=== PATIENT | male | born 1975 | race Caucasian/White ===

== ENCOUNTER 2018-03-13 11:00 | Outpatient (RCR) | payer MEDICARE, SELFPAY ==
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
--- NOTE | 2018-02-24 09:22 | HP.PTREVAL ---
KADEN Polo, It has been my pleasure to treat CHELY ANN over the last 7 visits for R shoulder impingement. Please see the progress note below for an update on the physical therapy plan of care! Subjective: Pt reports pain has returned after working out over the weekend Objective/Function: R shoulder pain 05/11. R shoulder ROM: flex= 150, abd= 160, ER= 45, IR WNL. R shoulder MMT: 4+/5 throughout. Pt is progressing well toward Rx goals Plan Plan: R shoulder strengthening (rot cuff), scap stab ex's, UBE, and HEP Goals Goal 1:: Decrease R shoulder pain x 50% to aid with sleep Goal Time Frame: 2-4 Weeks Goal Progress: Progressing Goal 2:: Increase R shoulder strength to 5/5 throughout to aid with RTS without limitation Goal Time Frame: 2-4 Weeks Goal Progress: Progressing Goal 3:: I with HEP Goal Time Frame: 2-4 Weeks Goal Progress: Progressing Anticipated Interventions Patient/Client Instruction: Educate patient on: Condition, Plan of Care For the Purpose of:: To improve self management Therapeutic Exercise to Include: Strength training, Postural training, Scapular Strength/Stabilization For the Purpose of:: To decrease pain, To improve muscle performance and motor function Cryotherapy (ice pack, ice massage): Yes For the Purpose of:: To decrease pain Please do not hesitate to contact me at [phone] by phone or if you have questions or concerns regarding this new plan of care! Sincerely, Domenico Urrutia, PT, ATC
--- NOTE | 2018-05-08 18:45 | HP.PT.NRP ---
HP - Discharge Summary (1) - Patient Information CHELY ANN was seen in my office for initial evaluation on 02/04/18. The following Plan of Care was established for this patient: Initial Frequency: 2x /Week Initial Duration: 3 Weeks - Anticipated Interventions Patient/Client Instruction: Educate patient on: Condition, Plan of Care For the Purpose of:: To improve self management Therapeutic Exercise to Include: Strength training, Postural training, Scapular Strength/Stabilization For the Purpose of:: To decrease pain, To improve muscle performance and motor function Cryotherapy (ice pack, ice massage): Yes For the Purpose of:: To decrease pain This patient was last seen in our office . Pertinent comments regarding their Physical therapy will appear below: Pt was treated for 9 PT visits for his R shoulder pain through the date of 03/13/18. Pt did not return after that visit, and is therefore discontinued at this time. At this point I will be discontinuing this patient from physical therapy. I would be happy to see this patient again in the future if found appropriate by the physician. Thank you! Domenico Urrutia, PT, ATC
== END 2018-03-13 19:00 | disposition home or self-care (01) ==
LOC: PT 11:00
PROVIDERS: Family Provider Internal Medicine; PCP Internal Medicine; Referring Provider Physician Assistant Surgical; Visit Provider Physician Assistant Surgical
DX: M75.41 Impingement syndrome of right shoulder (principal); M65.811 Other synovitis and tenosynovitis, right shoulder; M75.51 Bursitis of right shoulder
CPT/HCPCS: 97110; 97162; 97530

== ENCOUNTER → 2020-06-10 09:26 | Outpatient (CLI) | payer MEDICARE, SELFPAY ==
[2020-06-10 10:29] LABS: Absolute Lymphocyte Count 0.96 X10^3/uL (0.83-4.51); Absolute Neutrophil Count 2.6 X10^3/uL (2.0-7.7); Basophil# 0.04 X10^3/uL; Eosinophil# 0.06 X10^3/uL; Eosinophils% 1.5 % (0-5); Hematocrit 43.9 % (40-54); Hemoglobin 15.2 g/dL (13.0-16.5); Lymphocyte # 0.96 X10^3/ul (4.0); Lymphocyte % 23.2 % (19-41); Mean Corp Hgb Conc 34.6 g/dL (32-36); Mean Corpuscular Hgb 31.7 pg (27.0-32.0); Mean Corpuscular Volume 91.5 fL (80-94); Mean Platelet Vol. 9.3 fl (6.2-12.0); Monocyte# 0.44 X10^3/uL; Monocyte% 10.7 % (0-10); NRBC Flagged by Analyzer 0 % (0-5); Neutrophil # 2.61 X10^3/uL (2.7-7.7); Neutrophil % 63.1 % (47-70); Platelet Count 208 K/mm3 (150-450); RBC Distribution Width CV 12.4 % (11.6-14.6); RBC Distribution Width SD 41.1 fl (35.1-43.9); White Blood Count 4.1 K/mm3 (4.4-11.0)
[2020-06-10 10:56] LABS: Anion Gap 3 (5-15); BUN 17 mg/dL (7-18); BUN/Creat Ratio 17.1 RATIO (10-20); Calcium,Total 8.8 mg/dL (8.5-10.1); Chloride 106 mmol/L (98-107); Creatinine, Serum 0.99 mg/dL (0.70-1.30); EST Glomerular Filtration Rate 87 mL/min (>60); Est Glom Filt Rate - Afr Amer 106 mL/min (>60); Glucose 99 mg/dL (74-106); Potassium 3.7 mmol/L (3.5-5.1); Sodium Level 137 mmol/L (136-145)
== END ==
PROVIDERS: PCP Internal Medicine; Referring Provider Specialist; Visit Provider Specialist
DX: Z11.59 Encounter for screening for other viral diseases (principal); Z01.818 Encounter for other preprocedural examination
CPT/HCPCS: 36415; 80048; 85025; 87635; C9803; U0002

== ENCOUNTER 2024-10-06 11:30 | Emergency (ER) | payer MEDICARE, SELFPAY ==
[2024-10-06 11:31] VITALS: BP 105/81; PULSE 93; RESP 16; TEMP 37.2; O2SAT 95
--- NOTE | 2024-10-06 11:53 | EDS_ITS ---
HPI History of Present Illness Chief Complaint: Headache Detail of Chief Complaint: Headache Informant: patient Narrative Narrative: Patient presents with headache that started 3 days ago. He denies fall or injury. He complains of nausea. Some mild photophobia. Pain worse with standing and walking and gets better when lying flat. No history of migraines. Patient tells me he had a epidural injection at L4-5 with pain management about 2 weeks ago. He was told he may have a post lumbar puncture type headache. He is not had any fever or recent illness. [facility] Medical History (Updated 10/06/24 @ 13:[address] 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 cord injury Home Medications ?Medication ?Instructions ?Recorded ?Last Taken ?Type baclofen 20 mg tablet 20 mg PO 4X/DAY 10/02/24 Unk nown History gabapentin 800 mg tablet 800 mg PO TID 10/02/24 Unkno wn History levothyroxine 75 mcg tablet See Rx Instructions PO .CO MPLEX 10/02/24 Unknown History tizanidine 4 mg tablet 12 mg PO QHS 10/02/24 Unknow n History tramadol 50 mg tablet 50 mg PO 4X/DAY PRN pain 03/28 Unknown History cztupccxhe-coiqmioesnjhz-yaqnyfbe 1 tab PO Q6H PRN hans n #6 tabs 10/06/24 Unknown Rx 50 mg-325 mg-40 mg tablet Allergy/AdvReac Type Severity Reaction Status Date / Time No Known Allergies Allergy Unverified 10/02/24 10:07 Family History Father Diabetes Grandmother Heart disease Brother Cancer thyroid cancer - twin brother Grandfather Cancer prostate cancer Other Hypertension Surgical History Hx of superior vena cava filter placement History of knee surgery History of pelvic surgery History of cervical spinal surgery Social History (Updated 10/02/24 @ 10:12 by Floridalma Tavera) household members: spouse and children Smoking Status: Never smoker alcohol intake: current alcohol intake frequency: holidays/special occasions only ROS ROS ED Review of Systems ROS Unobtainable: other Constitutional Constitutional ED: Reports lethargy; Denies chills, fever(s), sweats or weight loss Eyes Eyes: Denies blurry vision, change in vision or diplopia ENT ENT ED: Denies rhinorrhea or sore throat Cardiovascular Cardiovascular: Denies chest pain, orthopnea or racing heartbeat Respiratory/Chest Respiratory/Chest: Denies cough, dyspnea, dyspnea on exertion, orthopnea or sputum Gastrointestinal Gastrointestinal: Reports nausea; Denies abdominal pain, diarrhea or vomiting Genitourinary Genitourinary ED: Denies dysuria, hematuria or urinary frequency Musculoskeletal Musculoskeletal: Denies arthralgias, back pain, myalgias or neck pain Integumentary Denies abscess, Abrasions or rash Neurologic Neurologic: Reports headache(s); Denies weakness Psychiatric Psychiatric: Denies anxiety, depression or suicidal thoughts Endocrine Endocrinology: Denies polydipsia, polyphagia or polyuria Hematologic/Lymphatic Hematologic/Lymphatic: Denies easy bleeding, easy bruising or lymphadenopathy Allergic/Immunologic Allergic/Immunologic ED: Denies mouth swelling, tongue swelling or urticaria EXAM Physical Exam Const Vital Signs: 10/06/24 11:31 10/06/24 13:28 Temperature 99.0 F 97.2 F L Temperature Source Oral Pulse Rate 93 69 Respiratory Rate 16 18 Blood Pressure 105/81 H 124/80 H Blood Pressure Mean 89 94 Pulse Ox 95 99 Oxygen Delivery Method Room Air Positive well nourished and well developed General Appearance ED: well developed and NAD HEENT Reports TM's clear and moist mucous membranes normocephalic and atraumatic; Negative for trauma or tenderness Tympanic Membrane ED: Yes TM's clear Eyes PERRL and EOMs intact bilaterally General Eye ED: Negative for pale conjunctiva or scleral icterus Neck no lymphadenopathy, supple and no JVD General: Negative for tenderness Chest Wall inspection of chest normal and palpation of chest normal Chest: Negative for tenderness Resp normal respiratory effort and clear to auscultation bilaterally Effort and Inspection: Negative for respiratory distress or pain with movement Auscultation: Negative for rhonchi, wheezes or diminished lung sounds Cardio regular rate, regular rhythm, S1 normal heart sound, S2 normal heart sound and no murmurs Peripheral Pulses: pulses 2+ throughout GI normal to inspection, nondistended, normoactive bowel sounds, soft to palpation, non-tender, non-distended and no masses Back/Spine no CVA tenderness and no thoracic nor lumbar tenderness Extremity normal to inspection General Extremety ED: Negative for edema General Extremity: Negative for edema Neuro oriented x3, CN's II-XII intact bilaterally, no sensory deficits noted and gait normal Sensorium / Orientation: awake, alert, oriented to person, oriented to place and oriented to time Motor Exam: strength 5/5 throughout and strength abnormal Psych mental status grossly normal Skin no rashes or lesions noted and no wounds MDM MDM MDM Narrative Medical decision making narrative: Patient presents with headache with concern for delayed spinal leak from prior epidural injection 2 weeks ago. Clinically looks well. No fever. No nuchal rigidity on exam. IV line established. He had a CT scan of the brain without contrast that was unremarkable. CBC with differential showed a normal white count 7.3 with hemoglobin 15 and platelet count of 233. Chemistries unremarkable. Patient was medicated with Reglan, Benadryl, and Toradol and had some pain relief with that. At this point I was able to discuss case with patient's tumbling barrel painter that performed the lumbar puncture. He asked that patient come see him tomorrow and he will assess and determine if the blood patch is indicated and performed at that time. He did asked that I give patient Fioricet until tomorrow when he can be seen by them. Lab Data Attestation: I reviewed the patient's lab results. Labs: Laboratory Results - last 24 hr 10/06/24 12:08 WBC 7.3 RBC 4.84 Hgb 15.1 Hct 43.5 MCV 89.9 MCH 31.2 MCHC 34.7 RDW Std Deviation 40.5 RDW Coeff of Marc 12.3 Plt Count 233 MPV 8.3 Immature Gran % (Auto) 1.400 H Neut % (Auto) 63.6 Lymph % (Auto) 24.7 Pepin % (Auto) 9.5 Eos % (Auto) 0.3 Baso % (Auto) 0.5 Absolute Neuts (auto) 4.7 Absolute Lymphs (auto) 1.81 Nucleated RBC % 0 Sodium 138 Potassium 3.5 Chloride 103 Carbon Dioxide 24.2 Anion Gap 11 BUN 14 Creatinine 1.01 Estim Creat Clear Calc 105.12 Est GFR (MDRD) Non-Af 92 BUN/Creatinine Ratio 13.8 Glucose 94 Calcium 9.0 Radiography Diagnostic Testing: Clinical Impression(s) from Imaging Studies Brain CT 10/06/24 12:34 IMPRESSION: NORMAL NONCONTRAST HEAD CT. Reading Location: [facility] Discharge Plan Triage Chief Complaint: Headache ED Provider: Jean Carlos Wilburn Dx/Rx/DC Orders Clinical Impression: Headache Instructions: ED Headache Unspecified Prescriptions: New xouovwueaa-gcdfykjcwpawf-gdxp 50-325-40 mg tablet 1 tab PO Q6H PRN (Reason: pain) Qty: 6 0RF No Action levothyroxine 75 mcg tablet See Rx Instructions PO .COMPLEX Rx Instructions: orally; 1 tab daily, except sundays take 2 tabs baclofen 20 mg tablet 20 mg PO 4X/DAY gabapentin 800 mg tablet 800 mg PO TID tizanidine 4 mg tablet 12 mg PO QHS tramadol 50 mg tablet 50 mg PO 4X/DAY PRN (Reason: pain) Primary Care Provider: Radha Diaz Referrals: Radha Diaz MD [Primary Care Provider] - Activity Restrictions/Additional Instructions: See the pain management doctor tomorrow Print Language: Telugu Disposition Disposition: Home, Self Care Discharge Date/Time: 10/06/24 13:29
[2024-10-06 12:16] LABS: Hematocrit 43.5 % (40-54); Hemoglobin 15.1 g/dL (13.0-16.5); Immature Granulocytes Count 0.100 X10^3/uL (0.0-0.0); Mean Corp Hgb Conc 34.7 g/dL (32-36); Mean Corpuscular Volume 89.9 fL (80-94); Mean Platelet Vol. 8.3 fl (6.2-12.0); NRBC Flagged by Analyzer 0 % (0-5); Platelet Count 233 K/mm3 (150-450); RBC Distribution Width CV 12.3 % (11.6-14.6); RBC Distribution Width SD 40.5 fl (35.1-43.9); Red Blood Count 4.84 M/mm3 (4.6-6.2); White Blood Count 7.3 K/mm3 (4.4-11.0)
[2024-10-06] MEDS: Ketorolac 30 MG/ML Syringe IV (12:17)
[2024-10-06] MEDS: DiphenhydrAMINE 50 MG/ML Syringe 25 MG IV (12:17)
[2024-10-06] MEDS: 0.9% Normal Saline (1000mL) 1,000 ML 1000 ML IV (12:18)
[2024-10-06 12:21] VITALS: BMI 23.8
--- NOTE | 2024-10-06 12:34 | CT_ITS ---
PROCEDURE: BRAIN/HEAD WITHOUT CONTRAST 10/06/2024 REASON FOR EXAM: HEADACHE Dizziness. TECHNIQUE: BRAIN/HEAD WITHOUT CONTRAST Coronal and Sagittal reconstruction series were provided. One or more dose reduction techniques were used (e.g., Automated exposure control, adjustment of the mA and/or kV according to patient size, use of iterative reconstruction technique. RADIATION DOSE SUMMARY: CTDlvol: 44.99 mGy DLP: 846.73 mGycm COMPARISON: None FINDINGS: Brain: Normal CSF Spaces: Normal Sinuses/Mastoids: Clear at visualized levels Bones: Unremarkable CT/Brain/Head without Contrast IMPRESSION: NORMAL NONCONTRAST HEAD CT. Reading Location: [facility]
[2024-10-06 12:53] LABS: Anion Gap 11 (5-15); BUN 14 mg/dL (4-19); BUN/Creat Ratio 13.8 RATIO (10-20); Calcium,Total 9.0 mg/dL (7.6-11.0); Carbon Dioxide 24.2 mmol/L (21.0-32.0); Chloride 103 mmol/L (98-108); Estimated Creatinine Clearance 105.12 ml/min (50-250); Glucose 94 mg/dL (70-99); Potassium 3.5 mmol/L (3.3-5.1)
[2024-10-06 13:28] VITALS: BP 124/80; PULSE 69; RESP 18; TEMP 36.2; O2SAT 99
--- OUTSIDE RECORDS SUMMARY | 2024-10-06 18:59 | XMS RPT_ITS | CCD ---
Author Organization [facility] Care Team Providers Care Public Health Doctor Name Role Phone PETAR INNA Lida Unavailable Unavailable TIFFANIE ANTHONY (BRAKE MECHANIC) Unavailable Unavailable Robin Enamorado MD Primary Care Provider Robin Enamorado MD Primary Care Provider Robin Enamorado MD Primary Care Provider Robin Enamorado MD Primary Care Provider ROBIN ENAMORADO Referring Unavailable KELSEA, ROBIN D Primary Care Unavailable Corporate, Doctor Attending Unavailable Gallito Moreno III Attending Unavailab le Corporate, Doctor Attending Unavailable Corporate, Doctor Attending Unavailable No Referring Doc, No Ref Doc Referring Lexi vailable Corporate, Doctor Attending Unavailable Anthony IT SECURITY CONSULTANT.BRAKE MECHANIC, Tiffanie Unavailable Citlali IT SECURITY CONSULTANT.METAL FURNACE OPERATOR, Anneliese Unavailable Citlali IT SECURITY CONSULTANT.METAL FURNACE OPERATOR, Anneliese Unavailable Citlali IT SECURITY CONSULTANT.METAL FURNACE OPERATOR, Anneliese Unavailable CIRILO GARCIA Attending Unavailable CHELY VERMA Referring Unavailable TALAMPAS, ROBIN D Primary Care Unavailable Anthony IT SECURITY CONSULTANT.BRAKE MECHANIC, Tiffanie Unavailable CHELY VERMA Attending Unavailable TALAMPAS, ROBIN D Primary Care Unavailable CHELY VERMA Attending Unavailable TALAMPAS, ROBIN D Primary Care Unavailable CHRIS CLEVELAND Attending Unavailable TALAMPAS, ROBIN D Primary Care Unavailable CHELY VERMA Attending Unavailable TALAMPAS, ROBIN D Primary Care Unavailable CHRIS CLEVELAND Admitting Unavailable CHRIS CLEVELAND Attending Unavailable TALAMPAS, ROBIN D Primary Care Unavailable CHELY VERMA Attending Unavailable SELF Referring Unavailable TALAMPAS, ROBIN D Primary Care Unavailable FRANDY YIP Admitting Unavailable FRANDY YIP Attending Unavailable TALAMPAS, ROBIN D Primary Care Unavailable CHELY VERMA Referring Unavailable TALAMPAS, ROBIN D Primary Care Unavailable AINSLEY ALFONSO Attending Unavailable SELF Referring Unavailable TALAMPAS, ROBIN D Primary Care Unavailable AINSLEY ALFONSO Referring Unavailable TALAMPAS, ROBIN D Primary Care Unavailable AINSLEY ALFONSO Referring Unavailable TALAMPAS, ROBIN D Primary Care Unavailable PABLO URIAS Attending Unavailable TALAMPAS, ROBIN D Primary Care Unavailable TALAMPAS, ROBIN D Referring Unavailable TALAMPAS, ROBIN D Primary Care Unavailable TALAMPAS, ROBIN D Attending Unavailable TALAMPAS, ROBIN D Primary Care Unavailable CHELY VERMA Referring Unavailable TALAMPAS, ROBIN D Referring Unavailable TALAMPAS, ROBIN D Primary Care Unavailable TALAMPAS, ROBIN D Attending Unavailable TALAMPAS, ROBIN D Primary Care Unavailable Geriampas , Dr. Robin Zavala Primary Care Provider Kelsea WHALEN, Dr. Robin Zavala Referring Provider Lele WHALEN, Dr. Caro Attending Provider Juanis WHALEN, Dr. Campos Attending Provider [phone] Andres Olivarez Attending Unavailable Talampas, Robin Sally Primary Care Unavailable Talampas, Robin D Referring Unavailable Talampas, Robin D Primary Care Unavailable Gordo Royal Attending Unavailable Dr. Jean Carlos Wilburn DO Emergency Provider [phone] Medications Current Medications Medication Drug Class(es) Dates Sig (Normalized) Sig (Original) acetaminophen 325 mg / butalbital 50 mg / caffeine 40 mg oral tablet (1 source) Barbiturate, Central Nervous System Stimulant, Methylxanthine Start: 10-06-2024 Butalbital-Aceta minophen-Caff 50-325-40 mg tablet Active 1 {tbl} PO EVERY 6 HOURS as needed for pain 6 0 October 06, 2024 12:00am baclofen 20 mg oral tablet (20 sources) gamma-Aminobutyric Acid-ergic Agonist Start: 10-02-2024 take 1 tablet by mouth four times daily Baclofen 20 mg tablet Active 20 mg PO 4 TIMES DAILY October 02, 2024 12:00am Start: 02-17-2020 End: 09-29-2024 take 1 tablet by mouth four times daily baclofen 20 mg tablet Indications: Brown-Sequard syndrome (HCC) Take 1 tablet by mouth four times daily. 120 tablet 3 06/01/2024 09/29/2024 Active Comment on above: Take 1 tablet by ruma th four times daily. bisacodyl 10 mg rectal suppository (2 sources) Stimulant Laxative Start: 04-24-2022 End: 05-24-2022 bisacodyl (THE MAGIC BULLET) 10 mg supp 1 Suppository by RECTAL route once daily as needed for constipation. 30 Suppository 1 04/24/2022 05/24/2022 Active Comment on above: 1 Suppository by REC GERI route once daily as needed for constipation. calcium carbonate 500 mg chewable tablet (20 sources) Start: 03-09-2019 End: 04-26-2022 calcium carbonate (TUMS) 500 mg chew Take by mouth. 03/09/2019 Active Comment on above: Take by mouth. Take 1 tablet by ruma th once daily. CPAP (20 sources) Start: 04-08-2024 CPAP Increase pressures to Autopap 8-20 cm H2O, Please take off ramp, and if able turn up humidity. Need for new supplies: Heat Humidity, suitable mask, Lifetime supplies, opt Chinstrap, G47.33. 1 Each 04/08/2024 Suspended Start: 04-08-2024 CPAP Increase pressures to Autopap 8-20 cm H2O, Please take off ramp, and if able turn up humidity. Need for new supplies: Heat Humidity, suitable mask, Lifetime supplies, opt Chinstrap, G47.33. 1 Each 04/08/2024 Active Start: 06-05-2018 End: 04-08-2024 CPAP Increase pressures to A utopap 8-20 cm H2O, Please take off ramp, and if able turn up humidity. Need for new supplies: Heat Humidity, suitable mask, Lifetime supplies, opt Chinstrap, G47.33. 1 Device 11 06/05/2018 04/08/2024 Discontinued Start: 06-05-2018 CPAP Increase pressures to Autopap 8-20 cm H2O, Please take off ramp, and if able turn up humidity. Need for new supplies: Heat Humidity, suitable mask, Lifetime supplies, opt Chinstrap, G47.33. 1 Device 11 06/05/2018 Active Comment on above: Increase pressures t o Autopap 8-20 cm H2O, Please take off ramp, and if able turn up humidity. Need for new supplies: Heat Humidity, suitable mask, Lifetime supplies, opt Nerysultana G47.33. diazePAM 10 mg oral tablet (1 source) Benzodiazepine Start: 07-31-19 End: 08-01-19 diazePAM (VALIUM) 10 mg tablet Indications: Spinal stenosis of lumbar region, unspecified whether neurogenic claudication present , Degeneration of intervertebral disc of lumbar region with lower extremity pain Take 1 tablet by mouth as directed for 1 day. One tab 2 hours prior to the procedure 1 tablet 07/30/2024 07/31/2024 Active gabapentin 800 mg oral tablet (20 sources) Anti-epileptic Agent Start: 06-26-19 End: 10-06-19 take 1 tablet by mouth three times daily Gabapentin 800 mg tablet Active 800 mg PO THREE TIMES A DAY October 02, 2024 12:00am Start: 10-27-2021 End: 06-22-2022 take 1 tablet by mouth three times daily gabapentin (NEURONTIN) 800 mg tablet Indications: Brown-Sequard syndrome (HCC) Take 1 tablet by mouth three times daily for 90 days. 270 tablet 0 02/16/2022 06/22/2022 Discontinued take 800 mg by mouth three times daily GABAPENTIN ORAL Take 800 mg by mouth three times daily. 0 Active Comment on above: Take 800 mg by mouth three times daily. Take 1 tablet by ruma three times daily for 90 days. Take 1 tablet by ruma three times daily for 180 days. Take 1 tablet by ruma th three times a day for 180 days. ibuprofen 800 mg oral tablet (20 sources) Nonsteroidal Anti-inflammatory Drug Start: 03-09-2019 ibuprofen (MOTRIN) 800 mg tablet Take by mouth. 03/09/2019 Active Comment on above: Take by mouth. levothyroxine sodium 0.075 mg oral tablet (20 sources) l-Thyroxine Start: 10-02-2024 Levothyroxine 75 mcg tablet Active 0 PO .COMPLEX October 02, 2024 12:00am orally; 1 tab daily, except sundays take 2 tabs Start: 10-02-2024 Levothyroxine 75 mcg tablet Active ug PO October 02, 2024 12:00am Start: 07-27-2022 End: 04-08-2024 levothyroxine (SYNTHROID) 75 mcg tablet Indications: Acquired hypothyroidism Take 1 tablet by mouth once daily. except on Sundays, take 2 pills 103 tablet 3 04/08/2024 Active Start: 06-21-2020 End: 07-28-2021 levothyroxine (SYNTHROID) 75 mcg tablet Indications: Acquired hypothyroidism Take 1 tablet by mouth once daily. except on Sundays, take 2 pills 103 tablet 3 07/28/2021 Active Comment on above: Take 1 tablet by ruma th once daily. except on Sundays, take 2 pills sildenafil 100 mg oral tablet (20 sources) Phosphodiesterase 5 Inhibitor Start: 04-24-2022 sildenafil (VIAGRA) 100 mg tablet Take 1 tablet by mouth as needed. 10 tablet 3 04/24/2022 Active Start: 08-01-2021 End: 04-24-2022 sildenafil (VIAGRA) 50 mg ta blet Take 1 tablet by mouth as needed. 30-60 minutes before sexual intercourse. 10 tablet 2 08/01/2021 04/24/2022 Discontinued Start: 04-29-2020 End: 07-28-2021 sildenafil (VIAGRA) 50 mg ta blet Take 1 tablet by mouth as needed. 30-60 minutes before sexual intercourse. 10 tablet 2 04/29/2020 07/28/2021 Discontinued Comment on above: Take 1 tablet by ruma th as needed. 30-60 minutes before sexual intercourse. Take 1 tablet by ruma th as needed. 12 hr timolol 5 mg/ml ophthalmic solution (20 sources) beta-Adrenergic Vitaliy Start: 03-29-2022 timolol maleate (TIMOPTIC) 0.5 % ophthalmic solution Use 1 Drop in the left eye twice daily. 10 mL 03/29/2022 Active Start: 03-29-2022 timolol maleat e (TIMOPTIC) 0.5 % ophthalmic solution Use 1 Drop in the left eye twice daily. 10 mL 0 03/29/2022 Active Comment on above: Use 1 Drop in the le ft eye twice daily. tiZANidine 4 mg oral tablet (20 sources) Central alpha-2 Adrenergic Agonist Start: 10-02-2024 take 3 tablets by mouth at bedtime Tizanidine 4 mg tablet Active 12 mg PO AT BEDTIME October 02, 2024 12:00am Start: 06-25-2022 End: 10-05-2024 take 1 tablet by mouth three times daily as needed Tizanidine 4 mg tablet Active 4 mg PO THREE TIMES A DAY as needed October 02, 2024 12:00am Start: 02-16-2022 End: 06-22-2022 take 1 tablet by mouth every eight hours as needed tiZANidine (ZANAFLEX) 4 mg tablet Take 1 tablet by mouth every 8 hours as needed. Three times daily as needed 270 tablet 0 02/16/2022 06/22/2022 Discontinued Start: 06-04-2017 End: 02-16-2022 tiZANidine (ZANAFLEX) 4 mg t ablet Takes 3 at bedtime plus may take with Baclofen as needed 0 06/04/2017 02/16/2022 Discontinued Comment on above: Takes 3 at bedtime p king may take with Baclofen as needed Take 1 tablet by ruma th every 8 hours as needed. Three times daily as needed Take 1 tablet by ruma th three times daily as needed. Three times daily as needed Take 1 tablet by ruma th three times a day as needed. Three times daily as needed traMADol hydrochloride 50 mg oral tablet (20 sources) Opioid Agonist Start: 10-02-2024 take 1 tablet by mouth four times daily as needed for pain Tramadol 50 mg tablet Active 50 mg PO 4 TIMES DAILY as needed for pain October 02, 2024 12:00am Start: 07-30-2024 End: 08-29-2024 take 1 tablet by mouth four times daily as needed for pain traMADol (ULTRAM) 50 mg tablet Indications: Brown-Sequard syndrome (HCC) Take 1 tablet by mouth four times a day as needed for pain for up to 30 days. 120 tablet 07/30/2024 Active Start: 02-18-2023 End: 07-31-2024 take 1 tablet by mouth every eight hours as needed for pain traMADol (ULTRAM) 50 mg tablet Indications: Brown-Sequard syndrome (HCC) Take 1 tablet by mouth every 8 hours as needed for pain for up to 30 days. Patient should start on July 01, 2024. 90 tablet 07/01/2024 07/30/2024 Discontinued Start: 08-30-2022 End: 12-22-2022 take 1 tablet by mouth every eight hours as needed for pain traMADol (ULTRAM) 50 mg tablet Indications: Brown-Sequard syndrome (HCC) Take 1 tablet by mouth every 8 hours as needed for pain for up to 30 days. 90 tablet 0 11/22/2022 12/22/2022 Active Start: 06-07-2022 End: 07-07-2022 take 1 tablet by mouth every eight hours as needed traMADol (ULTRAM) 50 mg tablet Indications: Brown-Sequard syndrome (HCC) Take 1 tablet by mouth every 8 hours as needed for up to 30 days. 90 tablet 0 06/07/2022 07/07/2022 Active Start: 11-23-2021 End: 04-14-2022 take 1 tablet by mouth every eight hours as needed traMADol (ULTRAM) 50 mg tablet Indications: Brown-Sequard syndrome (HCC) Take 1 tablet by mouth every 8 hours as needed for up to 30 days. 90 tablet 0 03/15/2022 Active Start: 08-17-2021 End: 11-11-2021 take 1 tablet by mouth every eight hours as needed traMADol (ULTRAM) 50 mg tablet Indications: Brown-Sequard syndrome (HCC) Take 1 tablet by mouth every 8 hours as needed for up to 30 days. 90 tablet 0 10/12/2021 11/11/2021 Active Comment on above: Take 50 mg by mouth every 8 hours as needed. Take 1 tablet by ruma th every 8 hours as needed for up to 30 days. Take 1 tablet by ruma th every 8 hours as needed for pain for up to 30 days. Completed/Discontinued Medications Medication Drug Class(es) Dates Sig (Normalized) Sig (Original) bacitracin 0.5 unt/mg ophthalmic ointment (5 sources) Start: 3 bacitracin ophthalmic ophthalmic ointment Use 1 application in the left eye every 4 hours. 3.5 g 0 03/29/2022 Active Comment on above: Use 1 application in the left eye every 4 hours. bacitracin 0.5 unt/mg / polymyxin b 10 unt/mg ophthalmic ointment (5 sources) Polymyxin-class Antibacterial Start: 3 bacitracin-polymyxin b (POLYSPORIN) ophthalmic ointment APPLY IN LEFT EYE EVERY 4 HOURS 0 03/30/2022 Active Comment on above: APPLY IN LEFT EYE EV JORI 4 HOURS dexamethasone 1 mg/ml / tobramycin 3 mg/ml ophthalmic suspension (5 sources) Aminoglycoside Antibacterial, Corticosteroid Start: 3 tobramycin-dexAMETHas one (TOBRADEX) 0.3-0.1 % ophthalmic suspension Use 1 application in the left eye three times daily for 7 days. 0 03/29/2022 Active Comment on above: Use 1 application in the left eye three times daily for 7 days. doxycycline hyclate 100 mg oral tablet (1 source) Tetracycline-class Drug Start: 3 End: 4 take 1 tablet by mouth twice daily doxycycline (VIBRA-TABS) 100 mg tablet Take 1 tablet by mouth two times a day for 7 days. 14 tablet 02/28/2023 03/07/2023 ketorolac tromethamine 5 mg/ml ophthalmic solution (5 sources) Nonsteroidal Anti-inflammatory Drug, Cyclooxygenase Inhibitor Start: 3 take 1 drop(s) into the eye(s) four times daily as needed keTORolac (ACULAR) 0.5 % ophthalmic solution USE 1 (ONE) DROP INTO THE AFFECTED EYES FOUR TIMES DAILY NEEDED 0 03/30/2022 Active Comment on above: USE 1 (ONE) DROP INT O THE AFFECTED EYES FOUR TIMES DAILY NEEDED meloxicam 15 mg oral tablet (5 sources) Nonsteroidal Anti-inflammatory Drug Start: 0 End: 3 meloxicam (MOBIC) 15 mg tablet Take by mouth. 0 03/04/1969 03/13/2022 Discontinued Comment on above: Take by mouth. methylPREDNISolone (6 sources) Corticosteroid Start: 5 End: 5 methylPREDNISolone (MEDROL DOSE-PACK) 4 mg Dose-Pack Take as instructed per package. 21 tablet 07/08/2024 07/14/2024 Start: 07-08-2024 End: 07-14-2024 methylPREDNISolone (MEDROL D OSE-PACK) 4 mg Dose-Pack Take as instructed per package. 21 tablet 07/08/2024 07/14/2024 Suspended Start: 07-08-2024 End: 07-14-2024 methylPREDNISolone (MEDROL D OSE-PACK) 4 mg Dose-Pack Take as instructed per package. 21 tablet 07/08/2024 07/14/2024 Active Start: 07-08-2023 End: 07-14-2023 methylPREDNISolone (MEDROL D OSE-PACK) 4 mg Dose-Pack Indications: Degeneration of lumbar intervertebral disc Take as instructed per package. 21 tablet 0 07/08/2023 07/14/2023 Active Start: 03-15-2023 End: 04-04-2023 take 1 tablet by mouth once methylPREDNISolone (MEDROL DOSE- PACK) 4 mg Dose-Pack Take 1 tablet by mouth as directed. As Instructed per package 21 tablet 0 03/15/2023 04/04/2023 Discontinued (Course of therapy completed) Start: 07-26-2021 End: 10-12-2021 methylPREDNISolone (MEDROL D OSE-PACK) 4 mg Dose-Pack Take as directed per package instructions 0 07/26/2021 10/12/2021 Discontinued Comment on above: Take as directed per package instructions Take 1 tablet by ruma th as directed. As Instructed per package nadolol 20 mg oral tablet (20 sources) beta-Adrenergic Vitaliy Start: 01-20-20 21 take 1 tablet by mouth once daily as needed for headache nadolol (CORGARD) 20 mg tablet Indications: Intermittent palpitations Take 1 tablet by mouth once daily. for headache; taking prn 90 tablet 3 01/19/2021 Active Comment on above: Take 1 tablet by ruma th once daily. for headache; taking prn omeprazole 20 mg delayed release oral capsule (20 sources) Proton Pump Inhibitor Start: 01-20-20 21 take 1 capsule by mouth once daily as needed omeprazole (PRILOSEC) 20 mg capsule Indications: Gastroesophageal reflux disease without esophagitis Take 1 capsule by mouth once daily. as needed 90 capsule 3 01/19/2021 Active Start: 03-09-2019 End: 10-12-2021 Omeprazole Magnesium 20 mg t ablet Take by mouth. 0 03/09/2019 10/12/2021 Discontinued Comment on above: Take 1 capsule by mo uth once daily. as needed Take by mouth. polyethylene glycol 3350 21950 mg powder for oral solution (20 sources) Osmotic Laxative Start: 12-10-2017 polyethylene glycol 3350 (MIRALAX) 17 gram/dose powder Take 17 g by mouth once daily. 1 Bottle 11 12/10/2017 Active Comment on above: Take 17 g by mouth o nce daily. prednisoLONE acetate 10 mg/ml ophthalmic suspension (5 sources) Corticosteroid Start: 04-06-2022 prednisoLONE acetate (PRED FORTE, ECONOPRED PLUS) 1 % ophthalmic suspension INSTILL 1 (ONE) DROP IN THE LEFT EYE FOUR TIMES DAILY. 0 04/06/2022 Active Comment on above: INSTILL 1 (ONE) DROP IN THE LEFT EYE FOUR TIMES DAILY. tamsulosin hydrochloride 0.4 mg oral capsule (20 sources) alpha-Adrenergic Vitaliy Start: 03-18-2019 End: 03-13-2022 tamsulosin (FLOMAX) 0.4 mg Take by mouth. 0 03/18/2019 03/13/2022 Discontinued Start: 01-15-2019 End: 09-21-2024 tamsulosin (FLOMAX) 0.4 mg 1 capsule. 01/15/2019 09/21/2024 Discontinued (Course of therapy completed) Comment on above: Take by mouth. 1 capsule. Problems Active Problems Problem Classification Problem Date Documented Da te Episodic/Chronic Cardiac dysrhythmias (1 source) Premature atrial contraction; Translations: [Atrial premature depolarization] 04-08-2024 Chronic Esophageal disorders (2 sources) Gastroesophageal reflux disease without esophagitis; Translations: [Gastro-esophageal reflux disease without esophagitis] Chronic Genitourinary symptoms and ill-defined conditions (1 source) Dysuria; Translations: [Dysuria] 09-02-2024 Episodic Headache; including migraine (20 sources) Headache disorder; Translations: [Other complicated headache syndrome] Onset: 9 02-05-2019 Episodic Immunizations and screening for infectious disease (4 sources) Viral screening status; Translations: [Encounter for screening for other viral diseases] Episodic Open wounds of head; neck; and trunk (1 source) Facial laceration ; Translations: [Laceration without foreign body of other part of head, initial encounter] Episodic Other acquired deformities (4 sources) Retrolisthesis; Translations: [Spondylolisthesis, site unspecified] 10-02-2024 Episodic Other connective tissue disease (20 sources) Spasticity; Translations: [Cramp and spasm] 02-27-2021 Episodic Other connective tissue disease (20 sources) Neuropathic pain; Translations: [Neuralgia and neuritis, unspecified] 02-27-2021 Episodic Other connective tissue disease (1 source) Other symptoms and signs involving the musculoskeletal system; Translations: [Other musculoskeletal symptoms referable to limbs] 09-14-2024 Episodic Other diseases of bladder and urethra (3 sources) Neurogenic bladder; Translations: [Neuromuscular dysfunction of bladder, unspecified] Chronic Other diseases of bladder and urethra (1 source) Neuromuscular dysfunction of bladder, unspecified; Translations: [Neurogenic bladder] Onset: 5 Chronic Other gastrointestinal disorders (1 source) Neurogenic bowel; Translations: [Neurogenic bowel, not elsewhere classified] Chronic Other hereditary and degenerative nervous system conditions (3 sources) Autonomic dysreflexia; 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] 10-02-2024 Chronic Other lower respiratory disease (1 source) Cough; Translations: [Acute cough] 02-28-2023 Episodic Other male genital disorders (20 sources) Secondary erectile dysfunction; Translations: [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] Onset: 0 09-23-2021 Chronic Other male genital disorders (2 sources) Male erectile dysfunction, unspecified; Translations: [Impotence of organic origin] Onset: 5 09-21-2024 Chronic Other male genital disorders (1 source) Defective ejaculation; Translations: [Other ejaculatory dysfunction] Episodic Other nervous system disorders (20 sources) Lesion of left ulnar nerve; Translations: [Lesion of ulnar nerve, left upper limb] Onset: 0 Chronic Other nervous system disorders (20 sources) Chronic pain syndrome; Translations: [Chronic pain syndrome] Onset: 3 02-18-2023 Chronic Other nervous system disorders (1 source) Chronic pain syndrome; Translations: [Chronic pain syndrome] Onset: 3 Chronic Other nervous system disorders (3 sources) Other chronic pain; Translations: [Chronic pain of left knee] Onset: 4 Chronic Other nervous system disorders (1 source) Lesion of ulnar nerve, left upper limb; Translations: [Lesion of left ulnar nerve] Onset: 2 Chronic Other nervous system disorders (1 source) Abnormal gait; Translations: [Unspecified abnormalities of gait and mobility] Episodic Other screening for suspected conditions (not mental disorders or infectious disease) (11 sources) Patient encounter status; Translations: [Encounter for screening for lipoid disorders] Onset: 5 Episodic Other upper respiratory infections (1 source) Acute upper respiratory infection; Translations: [Acute upper respiratory infection, unspecified] 02-28-2023 Episodic Paralysis (20 sources) Tetraplegia; Translations: [Quadriplegia, unspecified] Onset: 8 02-05-2019 Chronic Residual codes; unclassified (20 sources) Obstructive sleep apnea syndrome; Translations: [Obstructive sleep apnea (adult) (pediatric)] Onset: 5 12-04-2017 Chronic Residual codes; unclassified (1 source) At risk of diabetes mellitus; Translations: [Other specified personal risk factors, not elsewhere classified] Episodic Residual codes; unclassified (1 source) At risk of osteoporosis; Translations: [Other specified personal risk factors, not elsewhere classified] Episodic Spondylosis; intervertebral disc disorders; other back problems (20 sources) Lumbar spondylosis; Translations: [Spondylosis without myelopathy or radiculopathy, lumbar region] Onset: 3 02-18-2023 Chronic Spondylosis; intervertebral disc disorders; other back problems (20 sources) Fusion of spine, cervical region; Translations: [Cervical spine ankylosis] Onset: 5 10-01-2014 Episodic Substance-related disorders (20 sources) Opioid dependence; Translations: [Opioid dependence, uncomplicated] Onset: 3 10-11-2022 Chronic Thyroid disorders (20 sources) Hypothyroidism; Translations: [Hypothyroidism, unspecified] Onset: 4 08-05-2013 Chronic Unclassified (1 source) Obstructive sleep apnea (adult) (pediatric); Translations: [Obstructive sleep apnea (adult) (pediatric)] Onset: 5 Chronic Unclassified (1 source) Weakness of right lower extremity 09-14-2024 Unclassified (1 source) Degeneration of intervertebral disc of lumbar region with lower extremity pain; Translations: [Degeneration of intervertebral disc of lumbar region with lower extremity pain] Onset: 5 Unclassified (1 source) Degeneration of intervertebral disc of lumbar region with discogenic back pain and lower extremity pain; Translations: [Degeneration of intervertebral disc of lumbar region with discogenic back pain and lower extremity pain] Onset: 4 Past or Other Problems Problem Classification Problem Date Documented Da te Episodic/Chronic Acquired foot deformities (20 sources) Left foot drop; Translations: [Foot drop, left foot] Onset: 04-08-2007 04-08-2012 Episodic Cardiac dysrhythmias (20 sources) Intermittent palpitations; Translations: [Palpitations] Onset: 10-28-2023 Episodic Other aftercare (20 sources) Long-term current use of drug therapy; Translations: [Other group home (current) drug therapy] Onset: 09-03-2019 Episodic Other aftercare (2 sources) Other group home (current) drug therapy; Translations: [Other group home (current) drug therapy] Onset: 09-23-2021 Episodic Other connective tissue disease (1 source) Cramp and spasm; Translations: [Cramp and spasm] Onset: 04-08-2012 Episodic Other connective tissue disease (20 sources) Myofascial pain syndrome; Translations: [Myalgia, other site] Onset: 02-18-2023 02-18-2023 Episodic Other connective tissue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 Cleveland MD Work Phone: [facility] 07-14-2024 10:23-0400 Body temperature 97.2 [degF] Chris Cleveland MD Work Phone: [facility] 07-14-2024 10:23-0400 SaO2% (BldA) [Mass fraction] 96 % Chris Cleveland MD Work Phone: [facility] 04-08-2024 07:59-0500 Diastolic blood pressure 60 mm[Hg] Robin Enamorado MD Work Phone: [facility] 04-08-2024 07:59-0500 Heart rate 83 /min Robin Enamorado MD Work Phone: [facility] 04-08-2024 07:59-0500 SaO2% (BldA) [Mass fraction] 99 % Robin Enamorado MD Work Phone: [facility] 04-08-2024 07:59-0500 Systolic blood pressure 100 mm[Hg] Robin Enamorado MD Work Phone: [facility] 04-01-2024 09:24-0500 Body height 188 cm Chris Cleveland MD Work Phone: [facility] 04-01-2024 09:24-0500 Body mass index (BMI) [Ratio] 23.75 kg/m2 Chris Cleveland MD Work Phone: [facility] 04-01-2024 09:24-0500 Body weight 83.92 kg Chris Cleveland MD Work Phone: [facility] 04-01-2024 09:24-0500 Diastolic blood pressure 71 mm[Hg] Chris Cleveland MD Work Phone: [facility] 04-01-2024 09:24-0500 Heart rate 73 /min Chris Cleveland MD Work Phone: [facility] 04-01-2024 09:24-0500 Respiratory rate 16 /min Chris Cleveland MD Work Phone: [facility] 04-01-2024 09:24-0500 SaO2% (BldA) [Mass fraction] 98 % Chris Cleveland MD Work Phone: [facility] 04-01-2024 09:24-0500 Systolic blood pressure 110 mm[Hg] Chris Cleveland MD Work Phone: [facility] 01-09-2024 09:29-0500 Body mass index (BMI) [Ratio] 23.75 kg/m2 Chely ALFONSO-C Work Phone: [facility] 01-09-2024 09:29-0500 Body weight 83.92 kg Chely Verma PA-C Work Phone: [facility] 01-09-2024 09:29-0500 Diastolic blood pressure 81 mm[Hg] Chely ALFONSO-C Work Phone: [facility] 01-09-2024 09:29-0500 Heart rate 70 /min Chely ALFONSO-C Work Phone: [facility] 01-09-2024 09:29-0500 Respiratory rate 16 /min Chely ALFONSO-C Work Phone: [facility] 01-09-2024 09:29-0500 SaO2% (BldA) [Mass fraction] 97 % Chely ALFONSO-C Work Phone: [facility] 01-09-2024 09:29-0500 Systolic blood pressure 119 mm[Hg] Chely ALFONSO-C Work Phone: [facility] 10-17-2023 10:16-0400 Diastolic blood pressure 83 mm[Hg] Chris Cleveland MD Work Phone: [facility] 10-17-2023 10:16-0400 Heart rate 65 /min Chris Cleveland MD Work Phone: [facility] 10-17-2023 10:16-0400 Respiratory rate 18 /min Chris Cleveland MD Work Phone: [facility] 10-17-2023 10:16-0400 Systolic blood pressure 133 mm[Hg] Chris Cleveland MD Work Phone: [facility] 10-17-2023 09:51-0400 Body temperature 97.39 [degF] Chris Cleveland MD Work Phone: [facility] 10-03-2023 08:49-0400 Body height 188 cm Chely ALFONSO-C Work Phone: [facility] 10-03-2023 08:49-0400 Body mass index (BMI) [Ratio] 23.75 kg/m2 Chely ALFONSO-C Work Phone: [facility] 10-03-2023 08:49-0400 Body weight 83.92 kg Chely Verma PA-C Work Phone: [facility] 10-03-2023 08:49-0400 Diastolic blood pressure 74 mm[Hg] Chely ALFONSO-C Work Phone: [facility] 10-03-2023 08:49-0400 Heart rate 82 /min Chely ALFONSO-C Work Phone: [facility] 10-03-2023 08:49-0400 Respiratory rate 18 /min Chely ALFONSO-C Work Phone: [facility] 10-03-2023 08:49-0400 SaO2% (BldA) [Mass fraction] 97 % Chely ALFONSO-C Work Phone: [facility] 10-03-2023 08:49-0400 Systolic blood pressure 116 mm[Hg] Chely ALFONSO-C Work Phone: [facility] 10-02-2023 08:03-0400 Diastolic blood pressure 72 mm[Hg] Robin Enamorado MD Work Phone: [facility] 10-02-2023 08:03-0400 Heart rate 94 /min Robin Enamorado MD Work Phone: [facility] 10-02-2023 08:03-0400 Respiratory rate 16 /min Robin Enamorado MD Work Phone: [facility] 10-02-2023 08:03-0400 SaO2% (BldA) [Mass fraction] 95 % Robin Enamorado MD Work Phone: [facility] 10-02-2023 08:03-0400 Systolic blood pressure 110 mm[Hg] Robin Enamorado MD Work Phone: [facility] 08-08-2023 09:03-0400 Body height 188 cm Chely Verma PA-C Work Phone: [facility] 08-08-2023 09:03-0400 Body mass index (BMI) [Ratio] 23.75 kg/m2 Chely Verma PA-C Work Phone: [facility] 08-08-2023 09:03-0400 Body temperature 97.9 [degF] Chely Verma PA-C Work Phone: [facility] 08-08-2023 09:03-0400 Body weight 83.92 kg Chely Verma PA-C Work Phone: [facility] 08-08-2023 09:03-0400 Diastolic blood pressure 86 mm[Hg] Chely ALFONSO-C Work Phone: [facility] 08-08-2023 09:03-0400 Heart rate 85 /min Chely ALFONSO-C Work Phone: [facility] 08-08-2023 09:03-0400 Respiratory rate 20 /min Chely Verma PA-C Work Phone: [facility] 08-08-2023 09:03-0400 SaO2% (BldA) [Mass fraction] 98 % Chely ALFONSO-C Work Phone: [facility] 08-08-2023 09:03-0400 Systolic blood pressure 107 mm[Hg] Chely Verma PA-C Work Phone: [facility] 06-27-2023 09:06-0400 Body height 188 cm Chely Verma PA-C Work Phone: [facility] 06-27-2023 09:06-0400 Body mass index (BMI) [Ratio] 23.75 kg/m2 Chely Verma PA-C Work Phone: [facility] 06-27-2023 09:06-0400 Body temperature 97.7 [degF] Chely Verma PA-C Work Phone: [facility] 06-27-2023 09:06-0400 Body weight 83.92 kg Chely Verma PA-C Work Phone: [facility] 06-27-2023 09:06-0400 Diastolic blood pressure 69 mm[Hg] Chely Verma PA-C Work Phone: [facility] 06-27-2023 09:06-0400 Heart rate 80 /min Chely Verma PA-C Work Phone: [facility] 06-27-2023 09:06-0400 Respiratory rate 20 /min Chely Verma PA-C Work Phone: [facility] 06-27-2023 09:06-0400 SaO2% (BldA) [Mass fraction] 98 % Chely Verma PA-C Work Phone: [facility] 06-27-2023 09:06-0400 Systolic blood pressure 107 mm[Hg] Chely Verma PA-C Work Phone: [facility] 05-16-2023 09:10-0400 Body temperature 97.39 [degF] Chely Verma PA-C Work Phone: [facility] 05-16-2023 09:10-0400 Diastolic blood pressure 76 mm[Hg] Chely Verma PA-C Work Phone: [facility] 05-16-2023 09:10-0400 Heart rate 89 /min Chely Verma PA-C Work Phone: [facility] 05-16-2023 09:10-0400 Respiratory rate 18 /min Chely Verma PA-C Work Phone: [facility] 05-16-2023 09:10-0400 SaO2% (BldA) [Mass fraction] 98 % Chely Verma PA-C Work Phone: [facility] 05-16-2023 09:10-0400 Systolic blood pressure 124 mm[Hg] Chely Verma PA-C Work Phone: [facility] 04-02-2023 08:04-0500 Diastolic blood pressure 72 mm[Hg] Robin Enamorado MD Work Phone: [facility] 04-02-2023 08:04-0500 Heart rate 90 /min Robin Enamorado MD Work Phone: [facility] 04-02-2023 08:04-0500 Respiratory rate 16 /min Robin Enamorado MD Work Phone: [facility] 04-02-2023 08:04-0500 Systolic blood pressure 122 mm[Hg] Robin Enamorado MD Work Phone: [facility] 11-22-2022 08:57-0400 Body temperature 97.9 [degF] Chely Verma PA-C Work Phone: [facility] 11-22-2022 08:57-0400 Diastolic blood pressure 77 mm[Hg] Chely Verma PA-C Work Phone: [facility] 11-22-2022 08:57-0400 Heart rate 85 /min Chely Verma PA-C Work Phone: [facility] 11-22-2022 08:57-0400 Respiratory rate 18 /min Chely Verma PA-C Work Phone: [facility] 11-22-2022 08:57-0400 SaO2% (BldA) [Mass fraction] 99 % Chely Verma PA-C Work Phone: [facility] 11-22-2022 08:57-0400 Systolic blood pressure 129 mm[Hg] Chely Verma PA-C Work Phone: [facility] 10-11-2022 09:00-0400 Body temperature 97 [degF] Chely Verma PA-C Work Phone: [facility] 10-11-2022 09:00-0400 Diastolic blood pressure 67 mm[Hg] Chely Verma PA-C Work Phone: [facility] 10-11-2022 09:00-0400 Heart rate 78 /min Chely Verma PA-C Work Phone: [facility] 10-11-2022 09:00-0400 Respiratory rate 18 /min Chely Verma PA-C Work Phone: [facility] 10-11-2022 09:00-0400 SaO2% (BldA) [Mass fraction] 96 % Chely Verma PA-C Work Phone: [facility] 10-11-2022 09:00-0400 Systolic blood pressure 113 mm[Hg] Chely Verma PA-C Work Phone: [facility] 04-26-2022 08:58-0500 Body height 157.5 cm Chely Verma PA-C Work Phone: [facility] 04-26-2022 08:58-0500 Body temperature 98.49 [degF] Chely Verma PA-C Work Phone: [facility] 04-26-2022 08:58-0500 Body weight 81.65 kg Chely Verma PA-C Work Phone: [facility] 04-26-2022 08:58-0500 Diastolic blood pressure 67 mm[Hg] Chely Verma PA-C Work Phone: [facility] 04-26-2022 08:58-0500 Heart rate 81 /min Chely Verma PA-C Work Phone: [facility] 04-26-2022 08:58-0500 Respiratory rate 20 /min Chely Verma PA-C Work Phone: [facility] 04-26-2022 08:58-0500 SaO2% (BldA) [Mass fraction] 96 % Chely Verma PA-C Work Phone: [facility] 04-26-2022 08:58-0500 Systolic blood pressure 105 mm[Hg] Chely Verma PA-C Work Phone: [facility] 04-24-2022 14:58-0500 Body height 188 cm Jose Lewis MD Work Phone: [facility] 04-24-2022 14:58-0500 Body weight 81.65 kg Jose [place] MD Work Phone: [facility] 04-24-2022 14:58-0500 Diastolic blood pressure 80 mm[Hg] Jose [place] MD Work Phone: [facility] 04-24-2022 14:58-0500 Heart rate 94 /min Jose [place] MD Work Phone: [facility] 04-24-2022 14:58-0500 Respiratory rate 18 /min Jose Lewis MD Work Phone: [facility] 04-24-2022 14:58-0500 SaO2% (BldA) [Mass fraction] 95 % Jose Lewis MD Work Phone: [facility] 04-24-2022 14:58-0500 Systolic blood pressure 121 mm[Hg] Jose Lewis MD Work Phone: [facility] 03-15-2022 09:16-0500 Body height 185.4 cm Chely Verma PA-C Work Phone: [facility] 03-15-2022 09:16-0500 Body temperature 97.7 [degF] Chely Verma PA-C Work Phone: [facility] 03-15-2022 09:16-0500 Body weight 82.56 kg Chely Verma PA-C Work Phone: [facility] 03-15-2022 09:16-0500 Diastolic blood pressure 73 mm[Hg] Chely Verma PA-C Work Phone: [facility] 03-15-2022 09:16-0500 Heart rate 87 /min Chely Verma PA-C Work Phone: [facility] 03-15-2022 09:16-0500 Respiratory rate 20 /min Chely Verma PA-C Work Phone: [facility] 03-15-2022 09:16-0500 SaO2% (BldA) [Mass fraction] 98 % Chely Verma PA-C Work Phone: [facility] 03-15-2022 09:16-0500 Systolic blood pressure 106 mm[Hg] Chely Verma PA-C Work Phone: [facility] 03-13-2022 12:02-0500 Body temperature 97.7 [degF] Robin Enamorado MD Work Phone: [facility] 03-13-2022 12:02-0500 Diastolic blood pressure 62 mm[Hg] Robin Enamorado MD Work Phone: [facility] 03-13-2022 12:02-0500 Heart rate 80 /min Robin Enamorado MD Work Phone: [facility] 03-13-2022 12:02-0500 Respiratory rate 18 /min Robin Enamorado MD Work Phone: [facility] 03-13-2022 12:02-0500 SaO2% (BldA) [Mass fraction] 96 % Robin Enamorado MD Work Phone: [facility] 03-13-2022 12:02-0500 Systolic blood pressure 118 mm[Hg] Robin Enamorado MD Work Phone: [facility] 01-29-2022 08:55-0500 Body height 188 cm Ulises Pena MD Work Phone: [facility] 01-29-2022 08:55-0500 Body temperature 97.59 [degF] Ulises Pena MD Work Phone: [facility] 01-29-2022 08:55-0500 Body weight 81.65 kg Ulises Pena MD Work Phone: [facility] 01-29-2022 08:55-0500 Diastolic blood pressure 70 mm[Hg] Ulises Pena MD Work Phone: [facility] 01-29-2022 08:55-0500 Heart rate 86 /min Ulises Pena MD Work Phone: [facility] 01-29-2022 08:55-0500 Respiratory rate 18 /min Ulises Pena MD Work Phone: [facility] 01-29-2022 08:55-0500 SaO2% (BldA) [Mass fraction] 96 % Ulises Pena MD Work Phone: [facility] 01-29-2022 08:55-0500 Systolic blood pressure 109 mm[Hg] Ulises Pena MD Work Phone: [facility] 10-12-2021 09:14-0400 Body height 188 cm Chely Verma PA-C Work Phone: [facility] 10-12-2021 09:14-0400 Body temperature 98.4 [degF] Chely Verma PA-C Work Phone: [facility] 10-12-2021 09:14-0400 Body weight 81.65 kg Chely Verma PA-C Work Phone: [facility] 10-12-2021 09:14-0400 Diastolic blood pressure 77 mm[Hg] Chely Verma PA-C Work Phone: [facility] 10-12-2021 09:14-0400 Heart rate 76 /min Chely Verma PA-C Work Phone: [facility] 10-12-2021 09:14-0400 Respiratory rate 20 /min Chely Verma PA-C Work Phone: [facility] 10-12-2021 09:14-0400 SaO2% (BldA) [Mass fraction] 98 % Chely Verma PA-C Work Phone: [facility] 10-12-2021 09:14-0400 Systolic blood pressure 122 mm[Hg] Chely Verma PA-C Work Phone: [facility] 08-21-2021 08:32-0400 Diastolic blood pressure 60 mm[Hg] Tiffanie Anthony APRN.BRAKE MECHANIC Work Phone: [facility] 08-21-2021 08:32-0400 Heart rate 80 /min Tiffanie Anthony IT SECURITY CONSULTANT.BRAKE MECHANIC Work Phone: [facility] 08-21-2021 08:32-0400 Respiratory rate 16 /min Tiffanie Anthony IT SECURITY CONSULTANT.BRAKE MECHANIC Work Phone: [facility] 08-21-2021 08:32-0400 Systolic blood pressure 104 mm[Hg] Tiffanie Anthony IT SECURITY CONSULTANT.BRAKE MECHANIC Work Phone: [facility] Encounters Encounter Date Encounter Type Care Provider Facility Start: 10-06-2024 End: 10-06-2024 Emergency department patient visit Dr. Robin Enamorado MD Work Phone: -Emergency Department Work Phone: Start: 10-02-2024 End: 10-02-[address] Andres Olivarez MD -[facility] Start: 10-02-2024 End: 10-02-[address] Robin Enamorado MD Work Phone: -[facility] Start: 09-23-2024 ambulatory FRANDY Rojas y:[id number] Start: 09-23-2024 End: 09-23-2024 Subsequent hospital visit by physician Frandy Yip MD Work Phone: [facility] Comment on above: Spinal stenosis of l umbar region, unspecified whether neurogenic claudication present [M48.061], Degeneration of intervertebral disc of lumbar region with lower extremity pain [M51.361], Lumbar radiculopathy [M54.16] Start: 09-21-2024 End: 09-21-2024 E-mail encounter from caregiver Frandy Yip MD Work Phone: Pain Management Start: 09-21-2024 End: 09-21-2024 Patient encounter procedure Pablo Urias MD Work Phone: Urology Comment on above: Neurogenic bladder ( Primary Dx); Erectile dysfunction, unspecified erectile dysfunction type; Brown-Sequard syndrome (HCC); Screening for malignant neoplasm of prostate; Prostate cancer screening Start: 09-21-2024 End: 09-24-2024 ambulatory Frandy Yip MD Work Phone: Pain Management Comment on above: pre procedure messag e Start: 09-15-2024 End: 09-16-2024 Telephone encounter Frandy Yip MD Work Phone: Pain Management Comment on above: Time change for September 23 procedure Start: 09-14-2024 End: 09-14-2024 Patient encounter procedure Ainsley Alfonso PA-C Work Phone: [facility] Comment on above: Weakness of right lo wer extremity (Primary Dx) Start: 09-11-2024 End: 09-14-2024 Follow-up encounter Ainsley Alfonso PA-C Work Phone: [facility] Start: 09-11-2024 ambulatory AINSLEY ALFONSO Facili ty:[facility] Start: 09-11-2024 End: 09-11-2024 Subsequent hospital visit by physician Mri Radio [facility] (I-Stat/1.5t) Work Phone: Radiology Comment on above: Spinal stenosis of c ervical region [M48.02] Start: 09-02-2024 End: 09-02-2024 Office outpatient visit 40 minutes Ainsley Alfonso PA-C Work Phone: Rehab Medicine Comment on above: Chronic incomplete q uadriplegia (HCC) (Primary Dx); Brown-Sequard syndrome (HCC); Annular disc tear; Spinal stenosis of cervical region; Dysuria Start: 09-02-2024 End: 09-02-2024 ambulatory AINSLEY ALFONSO Facility:[facility] Start: 08-25-2024 End: 09-18-2024 Telephone encounter [facility] Comment on above: Patient Question Start: 07-30-2024 End: 07-30-2024 Patient encounter procedure Chely Verma PA-C Work Phone: Pain Management Comment on above: Spinal stenosis of l umbar region, unspecified whether neurogenic claudication present (Primary Dx); Degeneration of intervertebral disc of lumbar region with lower extremity pain; Lumbar spondylosis; Brown-Sequard syndrome (HCC); Chronic incomplete quadriplegia (HCC); Myofascial pain syndrome; Lesion of left ulnar nerve; Chronic pain of right knee; Lumbar radiculopathy Start: 07-30-2024 End: 07-30-2024 ambulatory CHELY VERMA Facility:[id number] Start: 07-29-2024 End: 07-29-2024 Telephone encounter Chely Verma PA-C Work Phone: Pain Management Comment on above: Results (MRI ) Start: 07-29-2024 ambulatory CHELY VERMA Facility: [facility] Start: 07-29-2024 End: 07-29-2024 Subsequent hospital visit by physician Mri Radio [facility] (I-Stat/1.5t) Work Phone: Radiology Comment on above: Spinal stenosis of l umbar region, unspecified whether neurogenic claudication present [M48.061] Start: 07-17-2024 End: 07-20-2024 ambulatory Chris Cleveland MD Work Phone: Pain Management Comment on above: Back/ Leg pain Start: 07-14-2024 End: 07-14-2024 Telephone encounter Inna Dacosta [facility] Start: 07-14-2024 ambulatory CHRIS Montoya ty:[id number] Start: 07-14-2024 End: 07-14-2024 Subsequent hospital visit by physician Chris Cleveland MD Work Phone: [facility] Comment on above: Myofascial pain synd yazmin [M79.18] Start: 07-08-2024 End: 07-08-2024 ambulatory Chely Verma PA-C Work Phone: Pain Management Comment on above: Back Start: 07-06-2024 End: 07-06-2024 ambulatory Chris Cleveland MD Work Phone: Pain Management Comment on above: pre procedure messag e Start: 07-06-2024 End: 07-06-2024 E-mail encounter from caregiver Chris Cleveland MD Work Phone: Pain Management Start: 06-25-2024 End: 06-25-2024 ambulatory CHELY VERMA Facility:[id number] Start: 06-23-2024 End: 06-23-2024 ambulatory CIRILO GARCIA Facility:[facility] Start: 06-23-2024 End: 06-23-2024 Patient encounter procedure Cirilo Acostaonald PT Work Phone: [facility] Comment on above: Chronic incomplete q uadriplegia (HCC) (Primary Dx) Start: 06-01-2024 End: 06-01-2024 Refill Chely Verma PA-C Work Phone: Pain Management Comment on above: Refill Request Start: 05-11-2024 End: 05-14-2024 Telephone encounter Chely Verma PA-C Work Phone: Rehab [facility] Sports Therapy Comment on above: Functional Capacity Eval Start: 05-05-2024 End: 05-08-2024 ambulatory Chely Verma PA-C Work Phone: Pain Management Comment on above: Dis. Paperwork Start: 04-24-2024 End: 05-20-2024 ambulatory Robin Enamorado MD Work Phone: [facility] [place] Comment on above: Paperwork Start: 04-21-2024 End: 04-21-2024 Orders Only Chely Verma PA-C Work Phone: Pain Management Comment on above: Brown-Sequard syndro me (HCC) (Primary Dx); Degeneration of intervertebral disc of lumbar region with discogenic back pain and lower extremity pain; Lumbar spondylosis; Myofascial pain syndrome; Chronic incomplete quadriplegia (HCC); Lesion of left ulnar nerve Start: 04-20-2024 End: 04-20-2024 Telephone encounter Chris Cleveland MD Work Phone: [facility] Comment on above: Scheduling a procedu re Start: 04-16-2024 End: 04-16-2024 ambulatory Chely Verma PA-C Work Phone: Pain Management Comment on above: Disability paperwork Start: 04-08-2024 End: 04-08-2024 ambulatory ROBIN ENAMORADO Facility:[facility] Start: 04-08-2024 End: 04-08-2024 Office outpatient visit 25 minutes Robin Enamorado MD Work Phone: [facility] [place] Comment on above: Acquired hypothyroid ism (Primary Dx); Palpitations; Myofascial pain syndrome; Brown-Sequard syndrome (HCC); Premature atrial contractions; Bradycardia Start: 04-06-2024 End: 04-06-2024 ambulatory ROBIN ENAMORADO Facility:[facility] Start: 04-01-2024 End: 04-01-2024 Telephone encounter Chris Cleveland MD Work Phone: [facility] Comment on above: Scheduling a procedu re Start: 04-01-2024 End: 04-01-2024 Office outpatient visit 25 minutes Chris Cleveland MD Work Phone: Pain Management Comment on above: Brown-Sequard syndro me (HCC) (Primary Dx); Degeneration of intervertebral disc of lumbar region with discogenic back pain and lower extremity pain; 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; Chronic pain syndrome; Myofascial pain syndrome; Chronic pain of left knee; Chronic pain of right knee Start: 04-01-2024 End: 04-01-2024 ambulatory CHRIS CLEVELAND Facility:[id number] Start: 03-03-2024 End: 03-17-2024 Telephone encounter Robin Enamorado MD Work Phone: [facility] [place] Comment on above: Results (Holter/even t monitor ) Start: 01-09-2024 End: 01-09-2024 Patient encounter procedure Chely Verma PA-C Work Phone: Pain Management Comment on above: Brown-Sequard syndro me (HCC) (Primary Dx); Degeneration of intervertebral disc of lumbar region with discogenic back pain and lower extremity pain; Lumbar spondylosis; Myofascial pain syndrome; Chronic incomplete quadriplegia (HCC); Lesion of left ulnar nerve Start: 01-09-2024 End: 01-10-2024 ambulatory CHELY VERMA Facility:[id number] Start: 01-03-2024 ambulatory Doctor [facility] Start: 01-02-[address] [facility] Start: 12-30-2023 ambulatory Doctor [facility] Start: 12-27-2023 ambulatory Gallito Chavez Morenoduane Chavez [facility] Start: 12-19-2023 ambulatory Doctor [employer] [facility] Start: 12-05-2023 End: 12-05-2023 Refill Chely Verma PA-C Work Phone: Pain Management Comment on above: Refill Request Refill meds. Start: 10-28-2023 ambulatory ROBIN ENAMORADO Facilit y:[facility] Start: 10-28-2023 End: 10-28-2023 Subsequent hospital visit by physician [facility] Comment on above: Arrived Start: 10-17-2023 End: 10-17-2023 Subsequent hospital visit by physician Chris Cleveland MD Work Phone: [facility] Comment on above: Myofascial pain synd yazmin [M79.18] Start: 10-03-2023 End: 10-03-2023 Patient encounter procedure Chely Verma PA-C Work Phone: Pain Management Comment on above: Degeneration of lumb ar intervertebral disc (Primary Dx); Lumbar spondylosis; Other group home (current) drug therapy; Brown-Sequard syndrome (HCC); Chronic incomplete quadriplegia (HCC); Lesion of left ulnar nerve; Myofascial pain syndrome Start: 10-03-2023 End: 10-03-2023 ambulatory CHELY VERMA Facility:[id number] Start: 10-02-2023 End: 10-02-2023 Subsequent hospital visit by physician L[facility] Work Phone: Radiology Comment on above: Chronic pain of righ t knee [M25.561, G89.29] Start: 10-02-2023 End: 10-02-2023 ambulatory ROBIN ENAMORADO Facility:[facility] Start: 10-02-2023 End: 10-02-2023 Office outpatient visit 25 minutes Robin Enamorado MD Work Phone: [facility] [place] Comment on above: Cervical radiculopat hy (Primary Dx); Intermittent palpitations; Acquired hypothyroidism; ANTONETTE on CPAP; Encounter for long-term current use of medication; Screening for depression; Encounter for screening examination for other mental health and behavioral disorders Start: 09-30-2023 End: 09-30-2023 ambulatory ROBIN ENAMORADO Facility:[facility] Start: 08-08-2023 End: 08-08-2023 Patient encounter procedure Chely Verma PA-C Work Phone: Pain Management Comment on above: Degeneration of lumb ar intervertebral disc (Primary Dx); Lumbar spondylosis; Brown-Sequard syndrome (HCC); Chronic incomplete quadriplegia (HCC); Lesion of left ulnar nerve; Myofascial pain syndrome; Chronic pain of left knee; Chronic pain of right knee Start: 07-08-2023 Telephone encounter Chely Verma PA-C Work Phone: Pain Management Comment on above: Patient Update (Incr eased pain in back) Start: 06-27-2023 End: 06-27-2023 Patient encounter procedure Chely Verma PA-C Work Phone: Pain Management Comment on above: Degeneration of lumb ar intervertebral disc (Primary Dx); Lumbar spondylosis; Brown-Sequard syndrome (HCC); Chronic incomplete quadriplegia (HCC); Lesion of left ulnar nerve; Myofascial pain syndrome Start: 05-16-2023 End: 05-16-2023 Patient encounter procedure Chely Verma PA-C Work Phone: Pain Management Comment on above: Degeneration of lumb ar intervertebral disc (Primary Dx); Lumbar spondylosis; Brown-Sequard syndrome (HCC); Chronic incomplete quadriplegia (HCC); Lesion of left ulnar nerve; Myofascial pain syndrome Start: 04-02-2023 End: 04-02-2023 Office outpatient visit 25 minutes Robin Enamorado MD Work Phone: [facility] [place] Comment on above: Acquired hypothyroid ism (Primary Dx); Intermittent palpitations; Encounter for long-term current use of medication; Encounter for immunization Start: 02-28-2023 End: 02-28-2023 Subsequent hospital visit by physician [facility] Work Phone: Radiology Comment on above: Acute cough [R05.1] Start: 12-07-2022 Refill Chely fisher PA-C Work Phone: Pain Management Comment on above: Refill Request Start: 11-22-2022 End: 11-22-2022 Patient encounter procedure Chely Verma PA-C Work Phone: Pain Management Comment on above: Brown-Sequard syndro me (HCC) (Primary Dx); Chronic incomplete quadriplegia (HCC); Lesion of left ulnar nerve; Chronic midline low back pain without sciatica; Opioid dependence, uncomplicated (HCC) Start: 10-11-2022 End: 10-11-2022 Patient encounter procedure Chely Verma PA-C Work Phone: Pain Management Comment on above: Chronic midline low back pain without sciatica (Primary Dx); Brown-Sequard syndrome (HCC); Chronic incomplete quadriplegia (HCC); Lesion of left ulnar nerve; Opioid dependence, uncomplicated (HCC); 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 Start: 06-22-2022 Refill Robin rm MD Work Phone: [facility] [place] Comment on above: Refill Request Start: 04-26-2022 End: 04-26-2022 Patient encounter procedure Chely Verma PA-C Work Phone: Pain Management Comment on above: Chronic midline low back pain without sciatica (Primary Dx); Brown-Sequard syndrome (HCC); Chronic incomplete quadriplegia (HCC); Lesion of left ulnar nerve; Other group home (current) drug therapy Start: 04-24-2022 End: 04-24-2022 Patient encounter procedure Jose Lewis MD Work Phone: Rehab Medicine Comment on above: Quadriplegia, C1-C4, incomplete (HCC) (Primary Dx); Neurogenic bowel; Neurogenic bladder; ANTONETTE (obstructive sleep apnea); Neuropathic pain; Neurologic gait dysfunction; At risk for diabetes mellitus; At risk for osteoporosis; Ejaculatory disorder Start: 2022 Telephone encounter Jose Spring MD Work Phone: Rehab Medicine Comment on above: Appointment (Pre PM & R) Start: 04-10-2022 End: 04-10-2022 Patient encounter procedure Vandana Taylor PA-C Work Phone: [facility] Comment on above: Facial laceration, i nitial encounter (Primary Dx) Start: 03-29-2022 E-mail encounter fro m caregiver [facility] Start: 03-29-2022 Patient encounter procedure [facility] Provider Rehab Medicine Comment on above: Dr. Lewis appoi ntment for tomorrow, 03/30/2022 is cancelled Start: 03-15-2022 End: 03-15-2022 Patient encounter procedure Chely Verma PA-C Work Phone: Pain Management Comment on above: Brown-Sequard syndro me (HCC) (Primary Dx); Chronic incomplete quadriplegia (HCC); Lesion of left ulnar nerve; Chronic midline low back pain without sciatica Start: 03-13-2022 E-mail encounter fro m caregiver [facility] Start: 03-13-2022 Patient encounter procedure [facility] [place] Comment on above: appointments and [employer] Heart monitor Start: 03-13-2022 Telephone encounter Robin langston MD Work Phone: [facility] [place] Comment on above: PAP compliance repor t Start: 03-13-2022 End: 03-13-2022 Office outpatient visit 25 minutes Robin Enamorado MD Work Phone: [facility] [place] Comment on above: Intermittent palpita tions (Primary Dx); Acquired hypothyroidism; Gastroesophageal reflux disease without esophagitis; 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; Chronic incomplete quadriplegia (HCC); Neuropathic pain; Encounter for long-term current use of medication; Encounter for immunization; Lipid screening; Chronic left-sided low back pain with left-sided sciatica Start: 02-16-2022 Refill Chely fisher PA-C Work Phone: Pain Management Comment on above: Refill Request Start: 01-29-2022 Refill Chely fisher PA-C Work Phone: Pain Management Comment on above: Refill Request Start: 01-29-2022 End: 01-29-2022 Office outpatient visit 25 minutes Ulises Pena MD Work Phone: Pain Management Comment on above: Chronic incomplete q uadriplegia (HCC) (Primary Dx); Brown-Sequard syndrome (HCC); Lesion of left ulnar nerve; Chronic midline low back pain without sciatica Start: 10-12-2021 End: 10-12-2021 Patient encounter procedure Chely Verma PA-C Work Phone: Pain Management Comment on above: Chronic incomplete q uadriplegia (HCC) (Primary Dx); Brown-Sequard syndrome (HCC); Lesion of left ulnar nerve; Chronic midline low back pain without sciatica; Other group home (current) drug therapy Start: 09-14-2021 Refill Ulises Acosta MD Work Phone: Pain Management Comment on above: Refill Request Start: 08-21-2021 End: 08-21-2021 Patient encounter procedure Tiffanie Anthony APRN.BRAKE MECHANIC Work Phone: [facility] [place] Comment on above: Chronic incomplete q uadriplegia (HCC) (Primary Dx); Gastroesophageal reflux disease without esophagitis; Intermittent palpitations; Acquired hypothyroidism; Need for hepatitis C screening test; ANTONETTE (obstructive sleep apnea); Neuropathic pain; Cervical vertebral fusion; Post-traumatic spasticity; Foot drop, left; Need for COVID-19 vaccine; Screening for lipid disorders Start: 08-17-2021 End: 08-17-2021 Subsequent hospital visit by physician Chely Verma PA-C Work Phone: [facility] Comment on above: FOLLOWUP Start: 07-28-2021 Refill Robin rm MD Work Phone: [facility] [place] Comment on above: Refill Request Start: 07-06-2021 End: 07-06-2021 Subsequent hospital visit by physician Chely Verma PA-C Work Phone: [facility] Comment on above: FOLLOW UP Start: 06-07-2021 ambulatory Tiffanie RAJANBRAKE MECHANIC Work Phone: [facility] [place] Comment on above: Scripts Start: 05-25-2021 End: 05-25-2021 Subsequent hospital visit by physician Chley Verma PA-C Work Phone: [facility] Comment on above: FOLLOW UP Start: 10-01-2017 End: 10-01-2017 Patient encounter INNA Hilton [facility] Start: 03-12-2017 End: 03-22-2017 Patient encounter TIFFANIE (BRAKE MECHANIC) [facility] Procedures Date Procedure Procedure Detail Performing Clinician Start: 10-06-2024 CT of head without contrast Dr. Robin Enamorado MD Work Phone: Start: 10-06-[address] Robin Enamorado MD Work Phone: Start: 10-02-2024 X-ray of lumbosacral spine Dr. Robin Enamorado MD Work Phone: Start: 09-23-2024 End: 09-23-2024 Njx dx/ther sbst intrlmnr lmbr/sac w/img gdn Frandy Yip MD Work Phone: Start: 09-21-2024 Urnls dip stick/tabl et rgnt auto w/o microscopy Bulk Order Provider Start: 09-11-2024 Mri spinal canal cer vical w/o contrast matrl Ainsley Alfonso PA-C Work Phone: Start: 07-29-2024 Mri spinal canal lum bar w/o contrast material Chely Verma PA-C Work Phone: Start: 07-14-2024 End: 07-14-2024 Injection single/supervisor benzene refining trigger point 3/> muscles Chris Cleveland MD Work Phone: Start: 01-02-2024 Medical Records Charge Doctor Corporate Start: 10-17-2023 End: 10-17-2023 Injection single/supervisor benzene refining trigger point 3/> muscles Chris Cleveland MD Work Phone: Start: 10-02-2023 Radiologic examinati on knee 1/2 views Chely Verma PA-C Work Phone: Start: 10-02-2023 Radiologic examinati on knee 1/2 views Chely Verma PA-C Work Phone: Start: 10-02-2023 Adult depression scr eening assessment Robin Enamorado MD Work Phone: Start: 04-02-2023 INFLUENZA VACCINE, A GE 6 MO - 64 YR, QUADRIVALENT (AFLURIA, FLULAVAL, FLUZONE) Robin Enamorado MD Work Phone: Start: 02-28-2023 Radiologic exam ches t 2 views Raine Harley IT SECURITY CONSULTANT.METAL FURNACE OPERATOR Work Phone: Start: 03-13-2022 INFLUENZA VACCINE QUADRIVALENT 6 MO - 64 YRS IM Robin Enamorado MD Work Phone: Start: 03-13-2022 Lipid 1996 panel - S james or Plasma Chely Verma PA-C Work Phone: Start: 10-04-2020 Adult depression scr eening assessment Chely Verma PA-C Work Phone: Plan of Treatment Date Care Activity Detail Author Start: 03-29-2032 Urine microalbumin profile [facility] Start: 04-06-2027 Diabetes Screening Diabetes Screening [facility] Start: 03-13-2027 Lipid 1996 panel - Serum or Plasma Lipid Screening [facility] Start: 03-13-2027 Lipid panel Lipid Screening [facility] Start: 03-13-2027 LIPID SCREEN LIPID SCREEN [facility] Start: 09-29-2026 Diabetes Screening Diabetes Screening [facility] Start: 04-01-2026 Diabetes Screening Diabetes Screening [facility] Start: 09-22-2025 End: 09-22-2025 Patient encounter procedure 09/22/2025 9:15 AM EDT Office Visit Urology [address] [address] Pablo Urias MD [address] [place] [address] One year follow up Urology Comment on above: One year follow up Start: 09-21-2025 End: 10-21-2025 US Kidney - bilateral and Urinary bladder US KIDNEY/BLADDER Radiology Routine Neurogenic bladder Expected: 09/21/2025 (Approximate), Expires: 10/21/2025 [facility] Comment on above: Expected: 09/21/2025 (Approximate), Expi res: 10/21/2025 Start: 04-14-2025 End: 04-14-2025 Patient encounter procedure 04/14/2025 8:40 AM EST Office Visit [facility] [address] [place] [address] Robin Enamorado MD [address] [place] [address] 6 month follow up [facility] [place] Comment on above: 6 month follow up Start: 04-08-2025 Annual PCP Team Chronic Disease Visit Annual PCP Team Chronic Disease Visit [facility] Start: 03-13-2025 DIABETES SCREEN DIABETES SCREEN [facility] Start: 03-13-2025 Diabetes Screening Diabetes Screening [facility] Start: 12-14-2024 End: 12-14-2024 Patient encounter procedure 12/14/2024 9:00 AM EDT Office Visit Cardiology [address] [place] [address] Krunal Mcneill MD [address] [facility], [address] [place] [address] Palpitations [R00.2] Cardiology Comment on above: Palpitations [R00.2] Start: 11-02-2024 Influenza vaccination [facility] Start: 10-30-2024 End: 10-30-2024 Patient encounter procedure 10/30/2024 10:30 AM EDT Office Visit Rehab Medicine [address] [place] [id number] Jose Lewis MD [address] [place], [place] [id number] F/U Rehab Medicine Comment on above: F/U Start: 10-29-2024 End: 10-29-2024 Patient encounter procedure Pain Management Comment on above: Follow Up Start: 10-14-2024 End: 10-14-2024 Patient encounter procedure 10/14/2024 10:45 AM EDT Office Visit [facility] [address] [place] [id number] Fanny Boykin MD [address] [address] per email from [facility] Comment on above: per email from [facility] Start: 10-13-2024 End: 10-13-2024 Patient encounter procedure 10/13/2024 8:00 AM EDT Office Visit [facility] [place] [address] [place] [address] Robin Enamorado MD [address] [place] [address] 6 month follow up [facility] [place] Comment on above: 6 month follow up Start: 10-09-2024 End: 10-09-2024 Patient encounter procedure 10/09/2024 9:00 AM EDT Office Visit Rehab Medicine [address] [place] [id number] Jose Lewis MD [address] [place] [address] F/U Rehab Medicine Comment on above: F/U Start: 10-06-2024 [facility] Start: 10-02-2024 X-ray of lumbosacral spine L/S Spine Min 4 Views [facility] Start: 10-02-2024 XR Spine Lumbar and Sacrum GE 4 Views [facility] Start: 10-01-2024 Annual PCP Team Chronic Disease Visit Annual PCP Team Chronic Disease Visit [facility] Start: 10-01-2024 Anxiety Screening Anxiety Screening [facility] Start: 10-01-2024 Depression Screening Depression Screening [facility] Start: 09-24-2024 End: 09-24-2024 Patient encounter procedure 09/24/2024 9:00 AM EDT Office Visit Pain Management [address] [place] [address] Chely Verma PA-C [address] [place] [address] Follow Up Pain Management Comment on above: Follow Up Start: 09-23-2024 End: 09-23-2024 Admission to same day surgery center [facility] Comment on above: SACRAL(CAUDAL) EPIDURAL BLOCK W/INJECTIO N NON NEUROLYTIC W/IMAGE GUIDANCE (L5-S1 lumbar epidural) Start: 09-23-2024 End: 09-23-2024 Njx dx/ther sbst intrlmnr lmbr/sac w/img gdn MR PAIN Start: 09-23-2024 Subsequent hospital visit by physician PAIN MANAGEMENT Comment on above: Spinal stenosis of lumbar region, unspec ified whether neurogenic claudication present [M48.061], Degeneration of intervertebral disc of lumbar region with lower extremity pain [M51.361], Lumbar radiculopathy [M54.16] Start: 09-21-2024 End: 12-21-2024 CYSTATIN C CYSTATIN C Lab Routine Neurogenic bladder Expected: 09/21/2024, Expires: 12/21/2024 [facility] Work Phone: Comment on above: Expected: 09/21/2024, Expires: Start: 09-21-2024 End: 09-21-2024 Patient encounter procedure 09/21/2024 9:00 AM EDT Office Visit Urology [address] [address] Pablo Urias MD [address] [place] [address] 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], Neurgenic bladder urine retention and urinary urgency Urology Comment on above: 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], N eurgenic bladder urine retention and urinary urgency Start: 09-11-2024 End: 09-11-2024 Patient encounter procedure 09/11/2024 7:30 AM EDT Appointment Radiology [address] [place] [address] MRI CERVICAL SPINE WO IVCON Radiology Comment on above: MRI CERVICAL SPINE WO IVCON Start: 09-02-2024 End: 12-02-2024 CBC W Auto Differential panel - Blood COMPLETE BLOOD COUNT AND DIFFERENTIAL Lab Routine Expected: 09/02/2024, Expires: 12/02/2024 [facility] Comment on above: Expected: 09/02/2024, Expires: Start: 09-02-2024 End: 12-02-2024 Comprehensive metabolic 2000 panel - Serum or Plasma COMPREHENSIVE METABOLIC PANEL Lab Routine Expected: 09/02/2024, Expires: 12/02/2024 [facility] Comment on above: Expected: 09/02/2024, Expires: Start: 09-02-2024 End: 12-02-2024 Urinalysis complete panel - Urine URINALYSIS (WITH MICROSCOPIC) WITH CULTURE IF INDICATED Lab Routine Dysuria Expected: 09/02/2024, Expires: 12/02/2024 [facility] Comment on above: Expected: 09/02/2024, Expires: Start: 07-29-2024 End: 07-29-2024 Patient encounter procedure 07/29/2024 7:30 AM EDT Appointment Radiology [address] [place] [address] Spinal stenosis of lumbar region, unspecified whether neurogenic claudication pr... Radiology Comment on above: Spinal stenosis of lumbar region, unspec ified whether neurogenic claudication pr... Start: 07-14-2024 End: 07-14-2024 Admission to same day surgery center 07/14/2024 10:30 AM EDT - 07/14/2024 10:45 AM EDT Surgery PAIN ZULMA PROCEDURES [address] [facility] [place] [address] Chris Cleveland MD [address] [place] [address] INJECTION TRIGGER POINT THREE OR MORE MUSCLES (mid/lower back) PAIN ZULMA PROCEDURES Comment on above: INJECTION TRIGGER POINT THREE OR MORE MU SCLES (mid/lower back) Start: 07-14-2024 End: 07-14-2024 Injection single/supervisor benzene refining trigger point 3/> muscles MR PAIN ZULMA Start: 07-14-2024 Subsequent hospital visit by physician 07/14/2024 10:30 AM EDT Hospital Encounter PAIN ZULMA PROCEDURES [address] [place] [address] Chris Cleveland MD [address] [place] [address] Myofascial pain syndrome [M79.18] PAIN ZULMA PROCEDURES Comment on above: Myofascial pain syndrome [M79.18] Start: 06-25-2024 End: 06-25-2024 Patient encounter procedure 06/25/2024 9:00 AM EDT Office Visit Pain Management [address] [place] [address] Chely Verma PA-C [address] [place] [address] Follow Up Pain Management Comment on above: Follow Up Start: 06-22-2024 End: 06-22-2024 Patient encounter procedure 06/22/2024 2:45 PM EDT OT/PT/Speech Visit [facility] [address] [place] [address] Aileen Payton, PT, DPT [address] [place] [address] E [facility] Comment on above: FCE Start: 04-08-2024 End: 04-08-2024 Patient encounter procedure 04/08/2024 8:00 AM EST Office Visit Internal Medicine [facility] [address] [place], [place] [address] Robin Enamorado MD [address] [place] [address] 6 mo follow up Internal Medicine [facility] Comment on above: 6 mo follow up Start: 04-03-2024 End: 07-03-2024 CBC panel - Blood by Automated count COMPLETE BLOOD COUNT Lab Routine Intermittent palpitations Encounter for long-term current use of medication Expected: 04/03/2024 (Approximate), Expires: 07/03/2024 [facility] Comment on above: Expected: 04/03/2024 (Approximate), Expi res: 07/03/2024 Start: 04-03-2024 End: 07-03-2024 Comprehensive metabolic 2000 panel - Serum or Plasma COMPREHENSIVE METABOLIC PANEL Lab Routine Intermittent palpitations Encounter for long-term current use of medication Expected: 04/03/2024 (Approximate), Expires: 07/03/2024 [facility] Comment on above: Expected: 04/03/2024 (Approximate), Expi res: 07/03/2024 Start: 04-03-2024 End: 07-03-2024 Magnesium [Mass/volume] in Serum or Plasma MAGNESIUM Lab Routine Intermittent palpitations Encounter for long-term current use of medication Expected: 04/03/2024 (Approximate), Expires: 07/03/2024 [facility] Comment on above: Expected: 04/03/2024 (Approximate), Expi res: 07/03/2024 Start: 04-03-2024 End: 07-03-2024 Thyrotropin [Units/volume] in Serum or Plasma THYROID STIMULATING HORMONE Lab Routine Acquired hypothyroidism Encounter for long-term current use of medication Expected: 04/03/2024 (Approximate), Expires: 07/03/2024 [facility] Comment on above: Expected: 04/03/2024 (Approximate), Expi res: 07/03/2024 Start: 04-03-2024 End: 07-03-2024 Thyroxine (T4) free [Mass/volume] in Serum or Plasma T4 FREE/FREE THYROXINE Lab Routine Acquired hypothyroidism Encounter for long-term current use of medication Expected: 04/03/2024 (Approximate), Expires: 07/03/2024 [facility] Comment on above: Expected: 04/03/2024 (Approximate), Expi res: 07/03/2024 Start: 04-03-2024 End: 07-03-2024 Triiodothyronine (T3) Free [Mass/volume] in Serum or Plasma T3, FREE Lab Routine Acquired hypothyroidism Encounter for long-term current use of medication Expected: 04/03/2024 (Approximate), Expires: 07/03/2024 [facility] Comment on above: Expected: 04/03/2024 (Approximate), Expi res: 07/03/2024 Start: 04-02-2024 Annual PCP Team Chronic Disease Visit Annual PCP Team Chronic Disease Visit [facility] Start: 04-01-2024 End: 07-01-2024 TOXASSURE FLEX 23, URINE TOXASSURE FLEX 23, URINE Lab Routine Degeneration of intervertebral disc of lumbar region with discogenic back pain and lower extremity pain 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 Chronic pain syndrome Expected: 04/01/2024, Expires: 07/01/2024 [facility] Work Phone: Comment on above: Expected: 04/01/2024, Expires: Start: 04-01-2024 End: 04-01-2024 Patient encounter procedure 04/01/2024 9:30 AM EST Office Visit Pain Management [address] [place] [address] Chris Cleveland MD [address] [facility] [place] [address] Follow Up Pain Management Comment on above: Follow Up Start: 01-09-2024 End: 01-09-2024 Patient encounter procedure 01/09/2024 9:30 AM EST Office Visit Pain Management [address] [place] [address] Chely Verma PA-C [address] [place] [address] Follow up Pain Management Comment on above: Follow up Start: 11-03-2023 Influenza vaccination Influenza Vaccine (#1) [facility] Start: 10-17-2023 End: 10-17-2023 Admission to same day surgery center 10/17/2023 9:30 AM EDT - 10/17/2023 10:00 AM EDT Surgery PAIN ZULMA PROCEDURES [address] [facility] [place] [address] Chris Cleveland MD [address] [place] [address] INJECTION TRIGGER POINT THREE OR MORE MUSCLES (neck/upper back x 1 visit) PAIN ZULMA PROCEDURES Comment on above: INJECTION TRIGGER POINT THREE OR MORE MU SCLES (neck/upper back x 1 visit) Start: 10-17-2023 End: 10-17-2023 Injection single/supervisor benzene refining trigger point 3/> muscles INJECTION TRIGGER POINT THREE OR MORE MUSCLES Myofascial pain syndrome 10/17/2023 9:30 AM EDT PAIN ZULMA Start: 10-17-2023 Subsequent hospital visit by physician 10/17/2023 9:30 AM EDT Hospital Encounter PAIN ZULMA PROCEDURES [address] [place] [address] Chris Cleveland MD [address] [place] [address] Myofascial pain syndrome [M79.18] PAIN ZULMA PROCEDURES Comment on above: Myofascial pain syndrome [M79.18] Start: 10-08-2023 End: 10-08-2023 Patient encounter procedure 10/08/2023 10:30 AM EDT Appointment [facility] [address] [place] [address] pt has order juan [facility] r00.2 [facility] Comment on above: pt has order [employer] hearts r00.2 Start: 10-03-2023 End: 01-02-2024 TOXASSURE FLEX 23, URINE TOXASSURE FLEX 23, URINE Lab Routine Degeneration of lumbar intervertebral disc Lumbar spondylosis Other group home (current) drug therapy Expected: 10/03/2023, Expires: 01/02/2024 [facility] Work Phone: Comment on above: Expected: 10/03/2023, Expires: Start: 10-03-2023 End: 10-03-2023 Patient encounter procedure 10/03/2023 9:00 AM EDT Office Visit Pain Management [address] [place] [address] Chely Verma PA-C [address] [place] [place] [address] follow up Pain Management Comment on above: follow up Start: 10-02-2023 End: 10-02-2023 Patient encounter procedure 10/02/2023 8:00 AM EDT Office Visit [facility] [place] [address] [place] [address] Robin Enamorado MD [address] [place] [address] 6 month follow up [facility] [place] Comment on above: 6 month follow up Start: 09-26-2023 ANNUAL PCP TEAM CHRONIC DISEASE VISIT ANNUAL PCP TEAM CHRONIC DISEASE VISIT [facility] Start: 09-26-2023 COVID-19 VACCINE (3 - Moderna series) COVID-19 VACCINE (3 - Moderna series) [facility] Comment on above: Postponed from 08/18/2020 (Declined at t his time) Start: 09-26-2023 HEPATITIS B (1 of 3 - 3-dose series) HEPATITIS B (1 of 3 - 3-dose series) [facility] Comment on above: Postponed from 1977 (Declined at t his time) Start: 09-26-2023 Hepatitis B Vaccine (1 of 3 - 19+ 3-dose series) Hepatitis B Vaccine (1 of 3 - 19+ 3-dose series) [facility] Comment on above: Postponed from 1996 (Declined at t his time) Start: 09-26-2023 Hepatitis B Vaccine (1 of 3 - 3-dose series) Hepatitis B Vaccine (1 of 3 - 3-dose series) [facility] Comment on above: Postponed from 1977 (Declined at t his time) Start: 08-08-2023 End: 08-08-2023 Patient encounter procedure 08/08/2023 9:15 AM EDT Office Visit Pain Management [address] [place] [address] Chely Verma PA-C [address] [place] [place] [address] FOLLOW UP Pain Management Comment on above: FOLLOW UP Start: 08-01-2023 End: 10-31-2023 Basic metabolic 2000 panel - Serum or Plasma BASIC METABOLIC PNL Lab Routine Encounter for long-term current use of medication Expected: 08/01/2023 (Approximate), Expires: 10/31/2023 [facility] Work Phone: Comment on above: Expected: 08/01/2023 (Approximate), Expi res: 10/31/2023 Start: 03-28-2023 COLORECTAL CANCER SCREENING COLORECTAL CANCER SCREENING [facility] Comment on above: Postponed from 2022 (Declined at t his time) Start: 03-13-2023 ANNUAL PCP TEAM CHRONIC DISEASE VISIT ANNUAL PCP TEAM CHRONIC DISEASE VISIT [facility] Start: 03-04-2023 Behavioral Health Screening Behavioral Health Screening [facility] Start: 03-04-2023 Depression Assessment Depression Assessment [facility] Start: 11-02-2022 Influenza vaccination [facility] Start: 10-11-2022 End: 12-11-2022 TOXASSURE FLEX 23, URINE TOXASSURE FLEX 23, URINE Lab Routine 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 Brown-Sequard syndrome (HCC) Expected: 10/11/2022, Expires: 12/11/2022 [facility] Work Phone: Comment on above: Expected: 10/11/2022, Expires: Start: 08-21-2022 ANNUAL PCP TEAM CHRONIC DISEASE VISIT ANNUAL PCP TEAM CHRONIC DISEASE VISIT [facility] Start: 05-29-2022 LIPID SCREEN LIPID SCREEN [facility] Start: 04-26-2022 End: 06-26-2022 DRUG SCR TOXASURE DRUG SCR TOXASURE Lab Routine Chronic midline low back pain without sciatica 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 Expected: 04/26/2022, Expires: 06/26/2022 [facility] Work Phone: Comment on above: Expected: 04/26/2022, Expires: Start: 2022 COLOGUARD (FIT-DNA) COLOGUARD (FIT-DNA) [facility] Start: 2022 Colonoscopy COLONOSCOPY [facility] Start: 2022 COLORECTAL CANCER SCREENING COLORECTAL CANCER SCREENING [facility] Start: [address] COLONOGRAPHY [facility] Start: 2022 FECAL OCCULT BLOOD FECAL OCCULT BLOOD [facility] Start: 2022 Screening for malignant neoplasm of colon [facility] Start: 2022 SIGMOIDOSCOPY SIGMOIDOSCOPY [facility] Start: 03-13-2022 End: 05-13-2022 Comprehensive metabolic 2000 panel - Serum or Plasma [facility] Work Phone: Comment on above: Expected: 03/13/2022, Expires: 3 Start: 03-13-2022 End: 05-13-2022 Lipid 1996 panel - Serum or Plasma [facility] Work Phone: Comment on above: Expected: 03/13/2022, Expires: 3 Start: 03-13-2022 End: 05-13-2022 Magnesium [Mass/volume] in Serum or Plasma [facility] Work Phone: Comment on above: Expected: 03/13/2022, Expires: 3 Start: 03-13-2022 End: 05-13-2022 TESTOSTERONE, FREE AND TOTAL [facility] Work Phone: Comment on above: Expected: 03/13/2022, Expires: 3 Start: 03-13-2022 End: 05-13-2022 Thyrotropin [Units/volume] in Serum or Plasma [facility] Work Phone: Comment on above: Expected: 03/13/2022, Expires: 3 Start: 03-13-2022 End: 05-13-2022 Thyroxine (T4) free [Mass/volume] in Serum or Plasma [facility] Work Phone: Comment on above: Expected: 03/13/2022, Expires: 3 Start: 03-13-2022 End: 05-13-2022 Triiodothyronine (T3) Free [Mass/volume] in Serum or Plasma [facility] Work Phone: Comment on above: Expected: 03/13/2022, Expires: 3 Start: 01-19-2022 ANNUAL PCP TEAM CHRONIC DISEASE VISIT ANNUAL PCP TEAM CHRONIC DISEASE VISIT [facility] Start: 01-03-2022 Urine microalbumin profile DTAP,TDAP,TD (2 - Td or Tdap) [facility] Start: 11-02-2021 Influenza vaccination INFLUENZA (#1) [facility] Start: 10-12-2021 End: 12-12-2021 DRUG SCR TOXASURE DRUG SCR TOXASURE Lab Routine Chronic midline low back pain without sciatica Other group home (current) drug therapy Expected: 10/12/2021, Expires: 12/12/2021 [facility] Work Phone: Comment on above: Expected: 10/12/2021, Expires: 2 Start: 10-04-2021 Adult depression screening assessment DEPRESSION SCREENING [facility] Start: 08-21-2021 End: 10-21-2021 CBC W Auto Differential panel - Blood CBC + DIFF Lab Routine Gastroesophageal reflux disease without esophagitis Expected: 08/21/2021, Expires: 10/21/2021 [facility] Work Phone: Comment on above: Expected: 08/21/2021, Expires: 2 Start: 08-21-2021 End: 10-21-2021 Comprehensive metabolic 2000 panel - Serum or Plasma COMP METABOLIC PANEL Lab Routine Gastroesophageal reflux disease without esophagitis Acquired hypothyroidism Expected: 08/21/2021, Expires: 10/21/2021 [facility] Work Phone: Comment on above: Expected: 08/21/2021, Expires: 2 Start: 08-21-2021 End: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 Narrative* Problem Noted Date Diagnosed Date Resolved Date Cellulitis and abscess of toe 07/18/2007 06/05/2017 documented as of this encounter (statuses as of 11/22/2022) [facility] History of Past illness Narrative* Problem Noted Date Diagnosed Date Resolved Date Cellulitis and abscess of toe 07/18/2007 06/05/2017 documented as of this encounter (statuses as of 12/08/2022) [facility] History of Past illness Narrative* Problem Noted Date Diagnosed Date Resolved Date Cellulitis and abscess of toe 07/18/2007 06/05/2017 documented as of this encounter (statuses as of 05/03/2023) [facility] History of Past illness Narrative* Problem Noted Date Diagnosed Date Resolved Date Cellulitis and abscess of toe 07/18/2007 06/05/2017 documented as of this encounter (statuses as of 05/16/2023) [facility] Diagnosis Acquired hypothyroidism Unspecified hypothyroidism [facility] this [facility] Diagnosis Chronic incomplete quadriplegia (HCC)- Primary Gastroesophageal reflux disease without esophagitis Esophageal reflux Intermittent palpitations Acquired hypothyroidism Unspecified hypothyroidism Need for hepatitis C screening test Special screening examination for other specified viral diseases ANTONETTE (obstructive sleep apnea) Obstructive sleep apnea (adult) (pediatric) Neuropathic pain Neuralgia, neuritis, and radiculitis, unspecified Cervical vertebral fusion Other unspecified back disorder Post-traumatic spasticity Abnormal involuntary movements Foot drop, left Other acquired deformity of ankle and foot Need for COVID-19 vaccine Screening for lipid disorders [facility] Diagnosis Chronic incomplete quadriplegia (HCC)- 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 Lesion of ulnar nerve Chronic midline low back pain without sciatica 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 [facility] 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 [facility] Chronic incomplete quadriplegia (HCC)- 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 Lesion of ulnar nerve Chronic midline low back pain without sciatica [facility] 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 [facility] Diagnosis Intermittent palpitations- Primary Acquired hypothyroidism Unspecified hypothyroidism Gastroesophageal reflux disease without esophagitis Esophageal reflux 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 Chronic incomplete quadriplegia (HCC) Neuropathic pain Neuralgia, neuritis, and radiculitis, unspecified Encounter for long-term current use of medication Encounter for immunization Need for other specified prophylactic vaccination against single bacterial disease Lipid screening Screening for lipoid disorders Chronic left-sided low back pain with left-sided sciatica [facility] 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 Chronic incomplete quadriplegia (HCC) Lesion of left ulnar nerve Lesion of ulnar nerve Chronic midline low back pain without sciatica [facility] Diagnosis Facial laceration, initial encounter- Primary [facility] Diagnosis Quadriplegia, C1-C4, incomplete (HCC)- Primary Quadriplegia, C1-C4, incomplete Neurogenic bowel Neurogenic bladder Neurogenic bladder, NOS ANTONETTE (obstructive sleep apnea) Obstructive sleep apnea (adult) (pediatric) Neuropathic pain Neuralgia, neuritis, and radiculitis, unspecified Neurologic gait dysfunction Abnormality of gait At risk for diabetes mellitus Other specified conditions influencing health status At risk for osteoporosis Other specified conditions influencing health status Ejaculatory disorder Other specified disorder of male genital organs [facility] Diagnosis Chronic midline low back pain without sciatica- 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 Chronic incomplete quadriplegia (HCC) Lesion of left ulnar nerve Lesion of ulnar nerve Other group home (current) drug therapy [facility] 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 [facility] Diagnosis Chronic midline low back pain without sciatica- 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 Chronic incomplete quadriplegia (HCC) Lesion of left ulnar nerve Lesion of ulnar nerve Opioid dependence, uncomplicated (HCC) 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 [facility] 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 Chronic incomplete quadriplegia (HCC) Lesion of left ulnar nerve Lesion of ulnar nerve Chronic midline low back pain without sciatica Opioid dependence, uncomplicated (HCC) [facility] 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 [facility] Diagnosis Acquired hypothyroidism- Primary Unspecified hypothyroidism Intermittent palpitations Encounter for long-term current use of medication Encounter for immunization Need for other specified prophylactic vaccination against single bacterial disease [facility] Diagnosis Degeneration of lumbar intervertebral disc- Primary Degeneration of lumbar or lumbosacral intervertebral disc Lumbar spondylosis Lumbosacral spondylosis without myelopathy 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 Chronic incomplete quadriplegia (HCC) Lesion of left ulnar nerve Lesion of ulnar nerve Myofascial pain syndrome Mylagia and myositis, unspecified [facility] Diagnosis Degeneration of lumbar intervertebral disc- Primary Degeneration of lumbar or lumbosacral intervertebral disc [facility] Diagnosis Degeneration of lumbar intervertebral disc- Primary Degeneration of lumbar or lumbosacral intervertebral disc Lumbar spondylosis Lumbosacral spondylosis without myelopathy 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 Chronic incomplete quadriplegia (HCC) Lesion of left ulnar nerve Lesion of ulnar nerve Myofascial pain syndrome Mylagia and myositis, unspecified Chronic pain of left knee Pain in joint, lower leg Chronic pain of right knee [facility] Diagnosis Cervical radiculopathy- Primary Brachial neuritis or radiculitis nos Intermittent palpitations Acquired hypothyroidism Unspecified hypothyroidism ANTONETTE on CPAP Obstructive sleep apnea (adult) (pediatric) Encounter for long-term current use of medication Screening for depression Encounter for screening examination for other mental health and behavioral disorders [facility] Diagnosis Degeneration of lumbar intervertebral disc- Primary Degeneration of lumbar or lumbosacral intervertebral disc Lumbar spondylosis Lumbosacral spondylosis without myelopathy Other group home (current) drug therapy 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 Chronic incomplete quadriplegia (HCC) Lesion of left ulnar nerve Lesion of ulnar nerve Myofascial pain syndrome Mylagia and myositis, unspecified Myofascial pain syndrome Mylagia and myositis, unspecified [facility] Diagnosis Chronic pain of right knee Chronic pain of left knee Pain in joint, lower leg [facility] Diagnosis Acute cough URI, acute Acute upper respiratory infections of unspecified site [facility] 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 Myofascial pain syndrome Mylagia and myositis, unspecified documented in this encounter [facility] note* 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 Degeneration of intervertebral disc of lumbar region with discogenic back pain and lower extremity pain Lumbar spondylosis Lumbosacral spondylosis without myelopathy Myofascial pain syndrome Mylagia and myositis, unspecified Chronic incomplete quadriplegia (HCC) Lesion of left ulnar nerve Lesion of ulnar nerve documented in this encounter [facility] note* 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 Degeneration of intervertebral disc of lumbar region with discogenic back pain and lower extremity pain 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 Chronic pain syndrome Myofascial pain syndrome Mylagia and myositis, unspecified Chronic pain of left knee Pain in joint, lower leg Chronic pain of right knee documented in this encounter [facility] note* Diagnosis Acquired hypothyroidism- Primary Unspecified hypothyroidism Palpitations Myofascial pain syndrome Mylagia and myositis, unspecified 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 Premature atrial contractions Supraventricular premature beats Bradycardia Other specified cardiac dysrhythmias [facility] 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 Degeneration of intervertebral disc of lumbar region with discogenic back pain and lower extremity pain Lumbar spondylosis Lumbosacral spondylosis without myelopathy Myofascial pain syndrome Mylagia and myositis, unspecified Chronic incomplete quadriplegia (HCC) Lesion of left ulnar nerve Lesion of ulnar nerve documented [facility] this encounter [facility] 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 [facility] Diagnosis Chronic incomplete quadriplegia (HCC)- Primary [facility] Diagnosis Spinal stenosis of lumbar region, unspecified whether neurogenic claudication present- Primary [facility] Diagnosis Spinal stenosis of lumbar region, unspecified whether neurogenic claudication present documented [facility] this encounter [facility] Diagnosis Spinal stenosis of lumbar region, unspecified whether neurogenic claudication present- Primary Degeneration of intervertebral disc of lumbar region with lower extremity pain Lumbar spondylosis Lumbosacral spondylosis without myelopathy 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 Chronic incomplete quadriplegia (HCC) Myofascial pain syndrome Mylagia and myositis, unspecified Lesion of left ulnar nerve Lesion of ulnar nerve Chronic pain of right knee Lumbar radiculopathy Thoracic or lumbosacral neuritis or radiculitis, unspecified documented [facility] this [facility] Diagnosis Chronic incomplete quadriplegia (HCC)- 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 Annular disc tear Other and unspecified disc disorder of unspecified region Spinal stenosis of cervical region Spinal stenosis in cervical region Dysuria Spinal stenosis of lumbar region, unspecified whether neurogenic claudication present Degeneration of intervertebral disc of lumbar region with lower extremity pain Lumbar radiculopathy Thoracic or lumbosacral neuritis or radiculitis, unspecified documented [facility] this [facility] Diagnosis Spinal stenosis of cervical region Spinal stenosis in cervical region 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 Spinal stenosis of lumbar region, unspecified whether neurogenic claudication present Degeneration of intervertebral disc of lumbar region with lower extremity pain Lumbar radiculopathy Thoracic or lumbosacral neuritis or radiculitis, unspecified [facility] Diagnosis Weakness of right lower extremity- Primary Spinal stenosis of lumbar region, unspecified whether neurogenic claudication present Degeneration of intervertebral disc of lumbar region with lower extremity pain Lumbar radiculopathy Thoracic or lumbosacral neuritis or radiculitis, unspecified [facility] this [facility] Diagnosis Neurogenic bladder- Primary Neurogenic bladder, NOS Erectile dysfunction, unspecified erectile dysfunction type 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 Screening for malignant neoplasm of prostate Prostate cancer screening Special screening for malignant neoplasm of prostate Spinal stenosis of lumbar region, unspecified whether neurogenic claudication present Degeneration of intervertebral disc of lumbar region with lower extremity pain Lumbar radiculopathy Thoracic or lumbosacral neuritis or radiculitis, unspecified [facility] Diagnosis Neurogenic bladder- Primary Neurogenic bladder, NOS Erectile dysfunction, unspecified erectile dysfunction type 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 Screening for malignant neoplasm of prostate Prostate cancer screening Special screening for malignant neoplasm of prostate Screening for genitourinary condition Screening for other and unspecified genitourinary condition documented in this encounter [facility] noteNo assessment information [facility]Ar[facility] Work Phone: Evaluation note* Diagnosis Onset Date Resolution Status Admit Date Brown-Sequard syndrome acute Au 2024 9:57am Cervical vertebral fusion acute October 02, 2024 9:57am Foraminal stenosis of lumbar region acute October 02, 2024 9:57am Retrolisthesis acute October 9:57am [facility] Work Phone: Hospital Discharge instructionsAdditional Instructions [facility] Work [facility]: Reason for referral (narrative)* Diagnostic Procedure Only (Routine) - Pending Review Specialty Diagnoses / Procedures Referred By Contac t Referred To Contact XR IMAGING Diagnoses Chronic pain of right knee Procedures XR KNEE LIMITED 2V AP/LAT RIGHT RADIOLOGIC EXAMINATION KNEE 1/2 VIEWS Chely Verma PA-C [address] [place] [address] [place] [address] Referral ID Status Reason Start Date Expiration Date Visits Requested Visits Authorized [id number] Pending Review Auto-Generat ed Referral 08/08/2023 09/06/2024 1 1 * Diagnostic Procedure Only (Routine) - Pending Review Specialty Diagnoses / Procedures Referred By Contac t Referred To Contact XR IMAGING Diagnoses Chronic pain of left knee Procedures XR KNEE LIMITED 2V AP/LAT LEFT RADIOLOGIC EXAMINATION KNEE 1/2 VIEWS Chely Verma PA-C [address] [place] [address] [place] [address] Referral ID Status Reason Start Date Expiration Date Visits Requested Visits Authorized [id number] Pending Review Auto-Generat ed Referral 08/08/2023 09/06/2024 1 1 [facility] for referral (narrative)* Diagnostic Procedure Only (Routine) - Closed Specialty Diagnoses / Procedures Referred By Contac t Referred To Contact XR IMAGING Diagnoses Chronic pain of left knee Procedures XR KNEE LIMITED 2V AP/LAT LEFT RADIOLOGIC EXAMINATION KNEE 1/2 VIEWS Chely Verma PA-C [address] [place] [address] [place] [address] Referral ID Status Reason Start Date Expiration Date V isits Requested Visits Authorized [id number] Closed Auto-Generate d Referral 08/08/2023 09/06/2024 1 1 * Diagnostic Procedure Only (Routine) - Closed Specialty Diagnoses / Procedures Referred By Contac t Referred To Contact XR IMAGING Diagnoses Chronic pain of right knee Procedures XR KNEE LIMITED 2V AP/LAT RIGHT RADIOLOGIC EXAMINATION KNEE 1/2 VIEWS Chely Verma PA-C [address] [place] [address] [place] [address] Referral ID Status Reason Start Date Expiration Date V isits Requested Visits Authorized [id number] Closed Auto-Generate d Referral 08/08/2023 09/06/2024 1 1 [facility] for referral (narrative)No reason for referral information availableMich[facility] Work Phone: [place] for visit Narrative* Diagnostic Procedure Only (Routine) - Closed Specialty Diagnoses / Procedures Referred By Contac t Referred To Contact XR IMAGING Diagnoses Chronic pain of right knee Procedures XR KNEE LIMITED 2V AP/LAT RIGHT RADIOLOGIC EXAMINATION KNEE 1/2 VIEWS Chely Verma PA-C [address] [place] [address] [place] [address] Referral ID Status Reason Start Date Expiration Date V isits Requested Visits Authorized [id number] Closed Auto-Generate d Referral 08/08/2023 09/06/2024 1 1 [facility] for visit Narrative* Auth/Cert (Routine) Specialty Diagnoses / Procedures Referred By Contac t Referred To Contact Diagnoses Myofascial pain syndrome Myofascial pain syndrome [M79.18] Procedures TRIGGER POINT INJECTION MULTI 3+ MUSCLE GRP INJECTION TRIGGER POINT THREE OR MORE MUSCLES PAIN ZULMA PROCEDURES [address] [place] [address] Phone: tel: fax: Referral ID Status Reason Start Date Expiration Date Visits Re quested Visits Authorized [id number] 1 1 [facility] for visit Narrative* MRI/CT (Routine) - Closed Specialty Diagnoses / Procedures Referred By Contac t Referred To Contact MR IMAGING Diagnoses Spinal stenosis of lumbar region, unspecified whether neurogenic claudication present Procedures MRI LUMBAR SPINE WO IVCON MRI SPINAL CANAL LUMBAR W/O CONTRAST MATERIAL Chely Verma PA-C [address] [place] [address] Phone: tel: fax: MR IMAGING [id number] Referral ID Status Reason Start Date Expiration Date V isits Requested Visits Authorized [id number] Closed Auto-Generate d Referral 07/20/2024 08/19/2025 1 1 [facility] for visit Narrative* MRI/CT (Routine) - Closed Specialty Diagnoses / Procedures Referred By Contac t Referred To Contact MR IMAGING Diagnoses Spinal stenosis of cervical region Procedures MRI CERVICAL SPINE WO IVCON MRI SPINAL CANAL CERVICAL W/O CONTRAST TRISTANL Ainsley Alfonso PA-C [address] [place] [address] Phone: tel: fax: [place] [id number] Referral ID Status Reason Start Date Expiration Date V isits Requested Visits Authorized [id number] Closed Auto-Generate d Referral 09/02/2024 10/02/2025 1 1 [facility] Summary Purpose Family History Relationship Condition Age at Onset Recorded Date/T ju Not Specified Hypertension Unknown father Diabetes mellitus Unknown grandmother Cardiac disease Unknown brother Malignant neoplasm Unknown grandfather Malignant neoplasm Unknown Advance Directives Advance Directive Response Recorded Date/ Time Do you have a Healthcare Power of [employer] First [employer]? No October 06, 2024 11:34am Reason for Referral Specialty Diagnoses / Procedures Referred By Anil t Referred To Contact Cardiology Diagnoses Palpitations Procedures CONSULT TO CARDIOLOGY OFFICE/OUTPATIENT [facility] 60 MINUTES Robin Enamorado MD [address] [place] [address] Referral ID Status Reason Start Date Expiration Date Visits Requested Visits Authorized [id number] Authorized PCP Requested Referral 04/08/2024 04/08/2025 1 1 Chief Complaint and Reason for Visit Chief Complaint Admit Date LUMBAR SPINE October 02, 2024 9:5 7am Room 2 October 02, 2024 10: 20am Reason for Visit Admit Date Brown-Sequard syndrome October 02, 2024 9:57am Cervical vertebral fusion October 02 9:57am Foraminal stenosis of lumbar region Oct 2024 9:57am Retrolisthesis October 02, 2024 9:5 7am Chief Complaint Admit Date LUMBAR SPINE October 02, 2024 9:5 7am Room 2 October 02, 2024 10: 20am headache October 06, 2024 11: 30am Reason for Visit Admit Date Brown-Sequard syndrome October 02, 2024 9:57am Cervical vertebral fusion October 02 9:57am Foraminal stenosis of lumbar region Oct 2024 9:57am Other intervertebral disc de generation, lumbar region with discogenic back October 02, 2024 9:57am Retrolisthesis October 02, 2024 9:5 7am Additional Source Comments (unrecognized sect ion and content) No Status Records FoundNo Status Records FoundNo Status Records FoundNo Status Records FoundNo Status Records FoundNo Status Records FoundNo Status Records Found INFORMATION SOURCE (unrecogn ized section and content) DATE CREATED AUTHOR 10/16/2017 [facility] DATE CREATED AUTHOR AUTHOR'S ORGANIZ ATION 10/29/2023 [facility] DATE CREATED AUTHOR AUTHOR'S ORGANIZ ATION 01/05/2024 [facility] [place] DATE CREATED AUTHOR AUTHOR'S ORGANIZ ATION 06/24/2024 [facility] DATE CREATED AUTHOR AUTHOR'S ORGANIZ ATION 09/24/2024 [facility] DATE CREATED AUTHOR AUTHOR'S ORGANIZ ATION 09/25/2024 [facility] DATE CREATED AUTHOR AUTHOR'S ORGANIZ ATION 10/04/2024 [facility] Source Comments (unrecognize d section and content) In the event this informatio n is protected by the Federal Confidentiality of Alcohol and Drug Abuse Patient Records regulations: The Federal rules restrict any use of the information to criminally investigate or prosecute any alcohol or drug abuse patient.[facility] the event this information is protected by the Federal Confidentiality of Alcohol and Drug Abuse Patient Records regulations: The Federal rules restrict any use of the information to criminally investigate or prosecute any alcohol or drug abuse patient.[facility] HospitalIn the event this information is protected by the Federal Confidentiality of Alcohol and Drug Abuse Patient Records regulations: The Federal rules restrict any use of the information to criminally investigate or prosecute any alcohol or drug abuse patient.[facility] HospitalIn the event this information is protected by the Federal Confidentiality of Alcohol and Drug Abuse Patient Records regulations: The Federal rules restrict any use of the information to criminally investigate or prosecute any alcohol or drug abuse patient.[facility] HospitalIn the event this information is protected by the Federal Confidentiality of Alcohol and Drug Abuse Patient Records regulations: The Federal rules restrict any use of the information to criminally investigate or prosecute any alcohol or drug abuse patient.[facility] HospitalIn the event this information is protected by the Federal Confidentiality of Alcohol and Drug Abuse Patient Records regulations: The Federal rules restrict any use of the information to criminally investigate or prosecute any alcohol or drug abuse patient.[facility] HospitalIn the event this information is protected by the Federal Confidentiality of Alcohol and Drug Abuse Patient Records regulations: The Federal rules restrict any use of the information to criminally investigate or prosecute any alcohol or drug abuse patient.[facility] HospitalIn the event this information is protected by the Federal Confidentiality of Alcohol and Drug Abuse Patient Records regulations: The Federal rules restrict any use of the information to criminally investigate or prosecute any alcohol or drug abuse patient.[facility] HospitalIn the event this information is protected by the Federal Confidentiality of Alcohol and Drug Abuse Patient Records regulations: The Federal rules restrict any use of the information to criminally investigate or prosecute any alcohol or drug abuse patient.[facility] HospitalIn the event this information is protected by the Federal Confidentiality of Alcohol and Drug Abuse Patient Records regulations: The Federal rules restrict any use of the information to criminally investigate or prosecute any alcohol or drug abuse patient.[facility] HospitalIn the event this information is protected by the Federal Confidentiality of Alcohol and Drug Abuse Patient Records regulations: The Federal rules restrict any use of the information to criminally investigate or prosecute any alcohol or drug abuse patient.[facility] HospitalIn the event this information is protected by the Federal Confidentiality of Alcohol and Drug Abuse Patient Records regulations: The Federal rules restrict any use of the information to criminally investigate or prosecute any alcohol or drug abuse patient.[facility] HospitalIn the event this information is protected by the Federal Confidentiality of Alcohol and Drug Abuse Patient Records regulations: The Federal rules restrict any use of the information to criminally investigate or prosecute any alcohol or drug abuse patient.[facility] HospitalIn the event this information is protected by the Federal Confidentiality of Alcohol and Drug Abuse Patient Records regulations: The Federal rules restrict any use of the information to criminally investigate or prosecute any alcohol or drug abuse patient.[facility] HospitalIn the event this information is protected by the Federal Confidentiality of Alcohol and Drug Abuse Patient Records regulations: The Federal rules restrict any use of the information to criminally investigate or prosecute any alcohol or drug abuse patient.[facility] HospitalIn the event this information is protected by the Federal Confidentiality of Alcohol and Drug Abuse Patient Records regulations: The Federal rules restrict any use of the information to criminally investigate or prosecute any alcohol or drug abuse patient.[facility] HospitalIn the event this information is protected by the Federal Confidentiality of Alcohol and Drug Abuse Patient Records regulations: The Federal rules restrict any use of the information to criminally investigate or prosecute any alcohol or drug abuse patient.[facility] HospitalIn the event this information is protected by the Federal Confidentiality of Alcohol and Drug Abuse Patient Records regulations: The Federal rules restrict any use of the information to criminally investigate or prosecute any alcohol or drug abuse patient.[facility] HospitalIn the event this information is protected by the Federal Confidentiality of Alcohol and Drug Abuse Patient Records regulations: The Federal rules restrict any use of the information to criminally investigate or prosecute any alcohol or drug abuse patient.[facility] HospitalIn the event this information is protected by the Federal Confidentiality of Alcohol and Drug Abuse Patient Records regulations: The Federal rules restrict any use of the information to criminally investigate or prosecute any alcohol or drug abuse patient.[facility] HospitalIn the event this information is protected by the Federal Confidentiality of Alcohol and Drug Abuse Patient Records regulations: The Federal rules restrict any use of the information to criminally investigate or prosecute any alcohol or drug abuse patient.[facility] HospitalIn the event this information is protected by the Federal Confidentiality of Alcohol and Drug Abuse Patient Records regulations: The Federal rules restrict any use of the information to criminally investigate or prosecute any alcohol or drug abuse patient.[facility] HospitalIn the event this information is protected by the Federal Confidentiality of Alcohol and Drug Abuse Patient Records regulations: The Federal rules restrict any use of the information to criminally investigate or prosecute any alcohol or drug abuse patient.[facility] HospitalIn the event this information is protected by the Federal Confidentiality of Alcohol and Drug Abuse Patient Records regulations: The Federal rules restrict any use of the information to criminally investigate or prosecute any alcohol or drug abuse patient.[facility] HospitalIn the event this information is protected by the Federal Confidentiality of Alcohol and Drug Abuse Patient Records regulations: The Federal rules restrict any use of the information to criminally investigate or prosecute any alcohol or drug abuse patient.[facility] HospitalIn the event this information is protected by the Federal Confidentiality of Alcohol and Drug Abuse Patient Records regulations: The Federal rules restrict any use of the information to criminally investigate or prosecute any alcohol or drug abuse patient.[facility] HospitalIn the event this information is protected by the Federal Confidentiality of Alcohol and Drug Abuse Patient Records regulations: The Federal rules restrict any use of the information to criminally investigate or prosecute any alcohol or drug abuse patient.[facility] HospitalIn the event this information is protected by the Federal Confidentiality of Alcohol and Drug Abuse Patient Records regulations: The Federal rules restrict any use of the information to criminally investigate or prosecute any alcohol or drug abuse patient.[facility] HospitalIn the event this information is protected by the Federal Confidentiality of Alcohol and Drug Abuse Patient Records regulations: The Federal rules restrict any use of the information to criminally investigate or prosecute any alcohol or drug abuse patient.[facility] HospitalIn the event this information is protected by the Federal Confidentiality of Alcohol and Drug Abuse Patient Records regulations: The Federal rules restrict any use of the information to criminally investigate or prosecute any alcohol or drug abuse patient.[facility] HospitalIn the event this information is protected by the Federal Confidentiality of Alcohol and Drug Abuse Patient Records regulations: The Federal rules restrict any use of the information to criminally investigate or prosecute any alcohol or drug abuse patient.[facility] HospitalIn the event this information is protected by the Federal Confidentiality of Alcohol and Drug Abuse Patient Records regulations: The Federal rules restrict any use of the information to criminally investigate or prosecute any alcohol or drug abuse patient.[facility] HospitalIn the event this information is protected by the Federal Confidentiality of Alcohol and Drug Abuse Patient Records regulations: The Federal rules restrict any use of the information to criminally investigate or prosecute any alcohol or drug abuse patient.[facility] HospitalIn the event this information is protected by the Federal Confidentiality of Alcohol and Drug Abuse Patient Records regulations: The Federal rules restrict any use of the information to criminally investigate or prosecute any alcohol or drug abuse patient.[facility] HospitalIn the event this information is protected by the Federal Confidentiality of Alcohol and Drug Abuse Patient Records regulations: The Federal rules restrict any use of the information to criminally investigate or prosecute any alcohol or drug abuse patient.[facility] HospitalIn the event this information is protected by the Federal Confidentiality of Alcohol and Drug Abuse Patient Records regulations: The Federal rules restrict any use of the information to criminally investigate or prosecute any alcohol or drug abuse patient.[facility] HospitalIn the event this information is protected by the Federal Confidentiality of Alcohol and Drug Abuse Patient Records regulations: The Federal rules restrict any use of the information to criminally investigate or prosecute any alcohol or drug abuse patient.[facility] HospitalIn the event this information is protected by the Federal Confidentiality of Alcohol and Drug Abuse Patient Records regulations: The Federal rules restrict any use of the information to criminally investigate or prosecute any alcohol or drug abuse patient.[facility] HospitalIn the event this information is protected by the Federal Confidentiality of Alcohol and Drug Abuse Patient Records regulations: The Federal rules restrict any use of the information to criminally investigate or prosecute any alcohol or drug abuse patient.[facility] HospitalIn the event this information is protected by the Federal Confidentiality of Alcohol and Drug Abuse Patient Records regulations: The Federal rules restrict any use of the information to criminally investigate or prosecute any alcohol or drug abuse patient.[facility] HospitalIn the event this information is protected by the Federal Confidentiality of Alcohol and Drug Abuse Patient Records regulations: The Federal rules restrict any use of the information to criminally investigate or prosecute any alcohol or drug abuse patient.[facility] HospitalIn the event this information is protected by the Federal Confidentiality of Alcohol and Drug Abuse Patient Records regulations: The Federal rules restrict any use of the information to criminally investigate or prosecute any alcohol or drug abuse patient.[facility] HospitalIn the event this information is protected by the Federal Confidentiality of Alcohol and Drug Abuse Patient Records regulations: The Federal rules restrict any use of the information to criminally investigate or prosecute any alcohol or drug abuse patient.[facility] HospitalIn the event this information is protected by the Federal Confidentiality of Alcohol and Drug Abuse Patient Records regulations: The Federal rules restrict any use of the information to criminally investigate or prosecute any alcohol or drug abuse patient.[facility] HospitalIn the event this information is protected by the Federal Confidentiality of Alcohol and Drug Abuse Patient Records regulations: The Federal rules restrict any use of the information to criminally investigate or prosecute any alcohol or drug abuse patient.[facility] HospitalIn the event this information is protected by the Federal Confidentiality of Alcohol and Drug Abuse Patient Records regulations: The Federal rules restrict any use of the information to criminally investigate or prosecute any alcohol or drug abuse patient.[facility] HospitalIn the event this information is protected by the Federal Confidentiality of Alcohol and Drug Abuse Patient Records regulations: The Federal rules restrict any use of the information to criminally investigate or prosecute any alcohol or drug abuse patient.[facility] HospitalIn the event this information is protected by the Federal Confidentiality of Alcohol and Drug Abuse Patient Records regulations: The Federal rules restrict any use of the information to criminally investigate or prosecute any alcohol or drug abuse patient.[facility] HospitalIn the event this information is protected by the Federal Confidentiality of Alcohol and Drug Abuse Patient Records regulations: The Federal rules restrict any use of the information to criminally investigate or prosecute any alcohol or drug abuse patient.[facility] HospitalIn the event this information is protected by the Federal Confidentiality of Alcohol and Drug Abuse Patient Records regulations: The Federal rules restrict any use of the information to criminally investigate or prosecute any alcohol or drug abuse patient.[facility] HospitalIn the event this information is protected by the Federal Confidentiality of Alcohol and Drug Abuse Patient Records regulations: The Federal rules restrict any use of the information to criminally investigate or prosecute any alcohol or drug abuse patient.[facility] HospitalIn the event this information is protected by the Federal Confidentiality of Alcohol and Drug Abuse Patient Records regulations: The Federal rules restrict any use of the information to criminally investigate or prosecute any alcohol or drug abuse patient.[facility] HospitalIn the event this information is protected by the Federal Confidentiality of Alcohol and Drug Abuse Patient Records regulations: The Federal rules restrict any use of the information to criminally investigate or prosecute any alcohol or drug abuse patient.[facility] HospitalIn the event this information is protected by the Federal Confidentiality of Alcohol and Drug Abuse Patient Records regulations: The Federal rules restrict any use of the information to criminally investigate or prosecute any alcohol or drug abuse patient.[facility] HospitalIn the event this information is protected by the Federal Confidentiality of Alcohol and Drug Abuse Patient Records regulations: The Federal rules restrict any use of the information to criminally investigate or prosecute any alcohol or drug abuse patient.[facility] HospitalIn the event this information is protected by the Federal Confidentiality of Alcohol and Drug Abuse Patient Records regulations: The Federal rules restrict any use of the information to criminally investigate or prosecute any alcohol or drug abuse patient.[facility] HospitalIn the event this information is protected by the Federal Confidentiality of Alcohol and Drug Abuse Patient Records regulations: The Federal rules restrict any use of the information to criminally investigate or prosecute any alcohol or drug abuse patient.[facility] HospitalIn the event this information is protected by the Federal Confidentiality of Alcohol and Drug Abuse Patient Records regulations: The Federal rules restrict any use of the information to criminally investigate or prosecute any alcohol or drug abuse patient.[facility] HospitalIn the event this information is protected by the Federal Confidentiality of Alcohol and Drug Abuse Patient Records regulations: The Federal rules restrict any use of the information to criminally investigate or prosecute any alcohol or drug abuse patient.[facility] HospitalIn the event this information is protected by the Federal Confidentiality of Alcohol and Drug Abuse Patient Records regulations: The Federal rules restrict any use of the information to criminally investigate or prosecute any alcohol or drug abuse patient.[facility] HospitalIn the event this information is protected by the Federal Confidentiality of Alcohol and Drug Abuse Patient Records regulations: The Federal rules restrict any use of the information to criminally investigate or prosecute any alcohol or drug abuse patient.[facility] HospitalIn the event this information is protected by the Federal Confidentiality of Alcohol and Drug Abuse Patient Records regulations: The Federal rules restrict any use of the information to criminally investigate or prosecute any alcohol or drug abuse patient.[facility] HospitalIn the event this information is protected by the Federal Confidentiality of Alcohol and Drug Abuse Patient Records regulations: The Federal rules restrict any use of the information to criminally investigate or prosecute any alcohol or drug abuse patient.[facility] HospitalIn the event this information is protected by the Federal Confidentiality of Alcohol and Drug Abuse Patient Records regulations: The Federal rules restrict any use of the information to criminally investigate or prosecute any alcohol or drug abuse patient.[facility] HospitalIn the event this information is protected by the Federal Confidentiality of Alcohol and Drug Abuse Patient Records regulations: The Federal rules restrict any use of the information to criminally investigate or prosecute any alcohol or drug abuse patient.[facility] HospitalIn the event this information is protected by the Federal Confidentiality of Alcohol and Drug Abuse Patient Records regulations: The Federal rules restrict any use of the information to criminally investigate or prosecute any alcohol or drug abuse patient.[facility] HospitalIn the event this information is protected by the Federal Confidentiality of Alcohol and Drug Abuse Patient Records regulations: The Federal rules restrict any use of the information to criminally investigate or prosecute any alcohol or drug abuse patient.[facility] HospitalIn the event this information is protected by the Federal Confidentiality of Alcohol and Drug Abuse Patient Records regulations: The Federal rules restrict any use of the information to criminally investigate or prosecute any alcohol or drug abuse patient.[facility] HospitalIn the event this information is protected by the Federal Confidentiality of Alcohol and Drug Abuse Patient Records regulations: The Federal rules restrict any use of the information to criminally investigate or prosecute any alcohol or drug abuse patient.[facility] HospitalIn the event this information is protected by the [facility] Confidentiality of Alcohol and Drug Abuse Patient Records regulations: The Federal rules restrict any use of the information to criminally investigate or prosecute any alcohol or drug abuse patient.[facility] HospitalIn the event this information is protected by the Federal Confidentiality of Alcohol and Drug Abuse Patient Records regulations: The Federal rules restrict any use of the information to criminally investigate or prosecute any alcohol or drug abuse patient.[facility] Care Teams (unrecognized sec tion and content) Public Health Doctor Relationship Specialty Start Date End Date Robin Enamorado MD [address] [place], [place] [id number] PCP - General Internal Medicine 04/07/12 Public Health Doctor Relationship Specialty Start Date End Date Robin Enamorado MD [address] [place], [place] [id number] PCP - General Internal Medicine 04/07/12 Public Health Doctor Relationship Specialty Start Date End Date Robin Enamorado MD [address] [place], [place] [id number] PCP - General Internal Medicine 04/07/12 Public Health Doctor Relationship Specialty Start Date End Date Robin Enamorado MD [address] [facility] [place] [address] PCP - General Internal Medicine 04/07/12 Public Health Doctor Relationship Specialty Start Date End Date Robin Enamorado MD [address] [facility] [place] [address] PCP - General Internal Medicine 04/07/12 Public Health Doctor Relationship Specialty Start Date End Date Robin Enamorado MD [address] [facility] [place] [address] PCP - General Internal Medicine 04/07/12 Public Health Doctor Relationship Specialty Start Date End Date Robin Enamorado MD [facility] [place] [address] PCP - General Internal Medicine 04/07/12 Public Health Doctor Relationship Specialty Start Date End Date Robin Enamorado MD [facility] [address] PCP - General Internal Medicine 04/07/12 Public Health Doctor Relationship Specialty Start Date End Date Robin Enamorado MD [facility] [place] [address] PCP - General Internal Medicine 04/07/12 Public Health Doctor Relationship Specialty Start Date End Date Robin Enamorado MD [facility] [place] [address] PCP - General Internal Medicine 04/07/12 Public Health Doctor Relationship Specialty Start Date End Date Robin Enamorado MD [facility] [place] [address] PCP - General Internal Medicine 04/07/12 Public Health Doctor Relationship Specialty Start Date End Date Robin Enamorado MD [facility] [place] [address] PCP - General Internal Medicine 04/07/12 Public Health Doctor Relationship Specialty Start Date End Date Robin Enamorado MD [address] [facility] [place] [place] [address] PCP - General Internal Medicine 04/07/12 Public Health Doctor Relationship Specialty Start Date End Date Robin Enamorado MD [address] [facility] [place] [place] [address] PCP - General Internal Medicine 04/07/12 Public Health Doctor Relationship Specialty Start Date End Date Robin Enamorado MD [address] [place] [address] PCP - General Internal Medicine 04/07/12 Public Health Doctor Relationship Specialty Start Date End Date Robin Enamorado MD [address] [place] [address] PCP - General Internal Medicine 04/07/12 Public Health Doctor Relationship Specialty Start Date End Date Robin Enamorado MD [address] [place] [address] PCP - General Internal Medicine 04/07/12 Public Health Doctor Relationship Specialty Start Date End Date Robin Enamorado MD [address] [place] [address] PCP - General Internal Medicine 04/07/12 Public Health Doctor Relationship Specialty Start Date End Date Robin Enamorado MD [address] [facility] [place] [address] PCP - General Internal Medicine 04/07/12 Public Health Doctor Relationship Specialty Start Date End Date Robin Enamorado MD [address] [facility] [place] [place] [address] PCP - General Internal Medicine 04/07/12 Public Health Doctor Relationship Specialty Start Date End Date Robin Enamorado MD [address] [facility] [place] [place] [address] PCP - General Internal Medicine 04/07/12 Public Health Doctor Relationship Specialty Start Date End Date Robin Enamorado MD [address] [place] [address] PCP - General Internal Medicine 04/07/12 Public Health Doctor Relationship Specialty Start Date End Date Robin Enamorado MD [address] [place] [address] PCP - General Internal Medicine 04/07/12 Public Health Doctor Relationship Specialty Start Date End Date Robin Enamorado MD [address] [place] [address] PCP - General Internal Medicine 04/07/12 Public Health Doctor Relationship Specialty Start Date End Date Robin Enamorado MD [address] [facility] [place] [place] [address] PCP - General Internal Medicine 04/07/12 Public Health Doctor Relationship Specialty Start Date End Date Robin Enamorado MD [address] [facility] [place] [address] PCP - General Internal Medicine 04/07/12 Public Health Doctor Relationship Specialty Start Date End Date Robin Enamorado MD [address] [place] [address] PCP - General Internal Medicine 04/07/12 Public Health Doctor Relationship Specialty Start Date End Date Robin Enamorado MD [address] [place] [address] PCP - General Internal Medicine 04/07/12 Public Health Doctor Relationship Specialty Start Date End Date Robin Enamorado MD [address] [facility] [place] [address] PCP - General Internal Medicine 04/07/12 Public Health Doctor Relationship Specialty Start Date End Date Robin Enamorado MD [address] [facility] [place] [address] PCP - General Internal Medicine 04/07/12 Public Health Doctor Relationship Specialty Start Date End Date Robin Enamorado MD [address] [facility] [place] [address] PCP - General Internal Medicine 04/07/12 Public Health Doctor Relationship Specialty Start Date End Date Robin Enamorado MD [address] [facility] [place] [address] PCP - General Internal Medicine 04/07/12 Public Health Doctor Relationship Specialty Start Date End Date Robin Enamorado MD [address] [place] [address] PCP - General Internal Medicine 04/07/12 Tiffanie Anthony, IT SECURITY CONSULTANT.BRAKE MECHANIC [address] [facility] [address] Personalized Living Manager Nurse Internal Medicine 02/10/24 Anneliese Godwin APRN.METAL FURNACE OPERATOR [address] [place] [address] Personalized Living Manager Nurse Internal Medicine 02/10/24 Public Health Doctor Relationship Specialty Start Date End Date Robin Enamorado MD [address] [place] [address] PCP - General Internal Medicine 04/07/12 Tiffanie Anthony APRN.BRAKE MECHANIC [address] [place] [address] Personalized Living Manager Nurse Internal Medicine 02/10/24 Anneliese Godwin APRN.METAL FURNACE OPERATOR [address] [place] [address] Personalized Living Manager Nurse Internal Medicine 02/10/24 Public Health Doctor Relationship Specialty Start Date End Date Robin Enamorado MD [address] [place] [address] PCP - General Internal Medicine 04/07/12 Tiffanie Anthony IT SECURITY CONSULTANT.BRAKE MECHANIC [address] [place] [address] Personalized Living Manager Nurse Internal Medicine 02/10/24 Anneliese Godwin APRN.METAL FURNACE OPERATOR [address] [place] [address] [facility] Internal Medicine 02/10/24 Public Health Doctor Relationship Specialty Start Date End Date Robin Enamorado MD [address] [place] [address] PCP - General Internal Medicine 04/07/12 Tiffanie Anthony, IT SECURITY CONSULTANT.BRAKE MECHANIC [address] [place] [address] Personalized Living Manager Nurse Internal Medicine 02/10/24 Anneliese Godwin APRN.METAL FURNACE OPERATOR [address] [place] [address] [facility] Internal Medicine 02/10/24 Public Health Doctor Relationship Specialty Start Date End Date Robin Enamorado MD [address] [place] [address] PCP - General Internal Medicine 04/07/12 Tiffanie Anthony, IT SECURITY CONSULTANT.BRAKE MECHANIC [address] [place] [address] Personalized Living Manager Nurse Internal Medicine 02/10/24 Anneliese Godwin, IT SECURITY CONSULTANT.METAL FURNACE OPERATOR [address] [place] [address] [facility] Internal Medicine 02/10/24 Public Health Doctor Relationship Specialty Start Date End Date Robin Enamorado MD [address] [place] [address] PCP - General Internal Medicine 04/07/12 Tiffanie Anthony, IT SECURITY CONSULTANT.BRAKE MECHANIC [address] [place] [address] [facility] Internal Medicine 02/10/24 Anneliese Godwin, IT SECURITY CONSULTANT.METAL FURNACE OPERATOR [address] [place] [address] [facility] Internal Medicine 02/10/24 Public Health Doctor Relationship Specialty Start Date End Date Robin Enamorado MD [address] [place] [address] PCP - General Internal Medicine 04/07/12 Tiffanie Anthony, IT SECURITY CONSULTANT.BRAKE MECHANIC [address] [place] [address] Personalized Living Manager Nurse Internal Medicine 02/10/24 Anneliese Godwin IT SECURITY CONSULTANT.METAL FURNACE OPERATOR [address] [facility] [place] [address] [facility] Internal Medicine 02/10/24 Public Health Doctor Relationship Specialty Start Date End Date Robin Enamoardo MD [address] [facility] [place] [address] PCP - General Internal Medicine 04/07/12 Tiffanie Anthony, IT SECURITY CONSULTANT.BRAKE MECHANIC [address] [facility] [address] [facility] Internal Medicine 02/10/24 Anneliese Godwin IT SECURITY CONSULTANT.METAL FURNACE OPERATOR [address] [facility] [address] [facility] Internal Medicine 02/10/24 Public Health Doctor Relationship Specialty Start Date End Date Robin Enamorado MD [address] [facility] [place] [address] PCP - General Internal Medicine 04/07/12 Tiffanie Anthony, IT SECURITY CONSULTANT.BRAKE MECHANIC [address] [facility] [place] [address] [facility] Internal Medicine 02/10/24 Anneliese Godwin IT SECURITY CONSULTANT.METAL FURNACE OPERATOR [address] [facility] [place] [address] [facility] Internal Medicine 05/26/24 Public Health Doctor Relationship Specialty Start Date End Date Robin Enamorado MD [address] [facility] [place] [address] PCP - General Internal Medicine 04/07/12 Tiffanie Anthony, IT SECURITY CONSULTANT.BRAKE MECHANIC [address] [facility] [place] [address] Personalized Living Manager Nurse Internal Medicine 02/10/24 Anneliese Godwin APRN.METAL FURNACE OPERATOR [address] [facility] [place] [address] Personalized Living Manager Nurse Internal Medicine 05/26/24 Public Health Doctor Relationship Specialty Start Date End Date Robin Enamorado MD [address] [facility] [place] [address] PCP - General Internal Medicine 04/07/12 Tiffanie Anthony, IT SECURITY CONSULTANT.BRAKE MECHANIC [address] [facility] [place] [address] Personalized Living Manager Nurse Internal Medicine 02/10/24 Anneliese Godwin APRN.METAL FURNACE OPERATOR [address] [facility] [place] [address] Personalized Living Manager Nurse Internal Medicine 05/26/24 Public Health Doctor Relationship Specialty Start Date End Date Robin Enamorado MD [address] [facility] [place] [address] PCP - General Internal Medicine 04/07/12 Tiffanie Anthony, IT SECURITY CONSULTANT.BRAKE MECHANIC [address] [facility] [place] [address] Personalized Living Manager Nurse Internal Medicine 02/10/24 Anneliese Godwin APRN.METAL FURNACE OPERATOR [address] [facility] [place] [address] Personalized Living Manager Nurse Internal Medicine 05/26/24 Public Health Doctor Relationship Specialty Start Date End Date Robin Enamorado MD [address] [facility] [place] [address] PCP - General Internal Medicine 04/07/12 Tiffanie Anthony, IT SECURITY CONSULTANT.BRAKE MECHANIC [address] [place] [address] Personalized Living Manager Nurse Internal Medicine 02/10/24 Anneliese Godwin IT SECURITY CONSULTANT.METAL FURNACE OPERATOR [address] [place] [address] Personalized Living Manager Nurse Internal Medicine 05/26/24 Public Health Doctor Relationship Specialty Start Date End Date Robin Enamorado MD [address] [place] [address] PCP - General Internal Medicine 04/07/12 Tiffanie Anthony, IT SECURITY CONSULTANT.BRAKE MECHANIC [address] [place] [address] Personalized Living Manager Nurse Internal Medicine 02/10/24 Anneliese Godwin APRN.METAL FURNACE OPERATOR [address] [place] [address] Personalized Living Manager Nurse Internal Medicine 05/26/24 Public Health Doctor Relationship Specialty Start Date End Date Robin Enamorado MD [address] [place] [address] PCP - General Internal Medicine 04/07/12 Tiffanie Anthony, IT SECURITY CONSULTANT.BRAKE MECHANIC [address] [place] [address] Personalized Living Manager Nurse Internal Medicine 02/10/24 Anneliese Godwin IT SECURITY CONSULTANT.METAL FURNACE OPERATOR [address] [facility] [place] [address] Personalized Living Manager Nurse Internal Medicine 05/26/24 Public Health Doctor Relationship Specialty Start Date End Date Robin Enamorado MD [address] [facility] [place] [address] PCP - General Internal Medicine 04/07/12 Anneliese Godwin, IT SECURITY CONSULTANT.METAL FURNACE OPERATOR [address] [facility] [address] Personalized Living Manager Nurse Internal Medicine 05/26/24 Tiffanie Anthony, IT SECURITY CONSULTANT.BRAKE MECHANIC [address] [facility] [place] [address] [facility] Internal Medicine 07/22/24 Public Health Doctor Relationship Specialty Start Date End Date Robin Enamorado MD [address] [facility] [place] [address] PCP - General Internal Medicine 04/07/12 Anneliese Godwin IT SECURITY CONSULTANT.METAL FURNACE OPERATOR [address] [facility] [place] [address] Personalized Living Manager Nurse Internal Medicine 05/26/24 Tiffanie Anthony, IT SECURITY CONSULTANT.BRAKE MECHANIC [address] [facility] [address] [facility] Internal Medicine 07/22/24 Public Health Doctor Relationship Specialty Start Date End Date Robin Enamorado MD [address] [facility] [place] [address] PCP - General Internal Medicine 04/07/12 Anneliese Godwin IT SECURITY CONSULTANT.METAL FURNACE OPERATOR [address] [facility] [place] [address] Personalized Living Manager Nurse Internal Medicine 05/26/24 Tiffanie Anthony, IT SECURITY CONSULTANT.BRAKE MECHANIC [address] [facility] [place] [address] Personalized Living Manager Nurse Internal Medicine 07/22/24 Public Health Doctor Relationship Specialty Start Date End Date Robin Enamorado MD [address] [facility] [place] [address] PCP - General Internal Medicine 04/07/12 Anneliese Godwin, IT SECURITY CONSULTANT.METAL FURNACE OPERATOR [address] [facility] [place] [address] Personalized Living Manager Nurse Internal Medicine 05/26/24 Tiffanie Anthony, IT SECURITY CONSULTANT.BRAKE MECHANIC [address] [facility] [place] [address] Personalized Living Manager Nurse Internal Medicine 07/22/24 Public Health Doctor Relationship Specialty Start Date End Date Robin Enamorado MD [address] [facility] [place] [address] PCP - General Internal Medicine 04/07/12 Anneliese Godwin, IT SECURITY CONSULTANT.METAL FURNACE OPERATOR [address] [facility] [place] [address] Personalized Living Manager Nurse Internal Medicine 05/26/24 Tiffanie Anthony, IT SECURITY CONSULTANT.BRAKE MECHANIC [address] [facility] [place] [address] Personalized Living Manager Nurse Internal Medicine 07/22/24 Public Health Doctor Relationship Specialty Start Date End Date Robin Enamorado MD [address] [facility] [place] [address] PCP - General Internal Medicine 04/07/12 Anneliese Godwin IT SECURITY CONSULTANT.METAL FURNACE OPERATOR [address] [facility] [place] [address] Personalized Living Manager Nurse Internal Medicine 05/26/24 Tiffanie Anthony, IT SECURITY CONSULTANT.BRAKE MECHANIC [address] [place] [address] Personalized Living Manager Nurse Internal Medicine 07/22/24 Public Health Doctor Relationship Specialty Start Date End Date Robin Enamorado MD [address] [place] [address] PCP - General Internal Medicine 04/07/12 Anneliese Godwin IT SECURITY CONSULTANT.METAL FURNACE OPERATOR [address] [place] [address] Personalized Living Manager Nurse Internal Medicine 05/26/24 Tiffanie Anthony, IT SECURITY CONSULTANT.BRAKE MECHANIC [address] [place] [address] Personalized Living Manager Nurse Internal Medicine 07/22/24 Public Health Doctor Relationship Specialty Start Date End Date Robin Enamorado MD [address] [place] [address] PCP - General Internal Medicine 04/07/12 Anneliese Godwin IT SECURITY CONSULTANT.METAL FURNACE OPERATOR [address] [place] [address] Personalized Living Manager Nurse Internal Medicine 05/26/24 Tiffanie Anthony, IT SECURITY CONSULTANT.BRAKE MECHANIC [address] [place] [address] Personalized Living Manager Nurse Internal Medicine 07/22/24 Public Health Doctor Relationship Specialty Start Date End Date Robin Enamorado MD [address] [place] [address] PCP - General Internal Medicine 04/07/12 Anneliese Godwin APRN.METAL FURNACE OPERATOR [address] [place] [address] Personalized Living Manager Nurse Internal Medicine 05/26/24 Tiffanie Anthony, IT SECURITY CONSULTANT.BRAKE MECHANIC [address] [place] [address] Personalized Living Manager Nurse Internal Medicine 07/22/24 Public Health Doctor Relationship Specialty Start Date End Date Robin Enamorado MD [address] [place] [address] PCP - General Internal Medicine 04/07/12 Anneliese Godwin APRN.METAL FURNACE OPERATOR [address] [place] [address] Personalized Living Manager Nurse Internal Medicine 05/26/24 Tiffanie Anthony, IT SECURITY CONSULTANT.BRAKE MECHANIC [address] [place] [address] Personalized Living Manager Nurse Internal Medicine 07/22/24 Public Health Doctor Relationship Specialty Start Date End Date Robin Enamorado MD [address] [place] [address] PCP - General Internal Medicine 04/07/12 Anneliese Godwin IT SECURITY CONSULTANT.METAL FURNACE OPERATOR [address] [place] [address] Personalized Living Manager Nurse Internal Medicine 05/26/24 Tiffanie Anthony, IT SECURITY CONSULTANT.BRAKE MECHANIC [address] [place] [address] Personalized Living Manager Nurse Internal Medicine 07/22/24 Team Status: Active Member Role/Relationship Status Dates Dr. Robin Enamorado MD Family Provider Active Dr. Robin Enamorado MD Primary Care Provider Active Team Status: Active Member Role/Relationship Status Dates Dr. Robin Enamorado MD Primary Care Provider Active Start: October 02, 2024 Dr. Robin Enamorado MD Referring Provider Active Start: October 02, 2024 Dr. Gordo Royal MD Attending Provider Active Start: October 02, 2024 Team Status: Inactive Member Role/Relationship Status Dates Dr. Robin Enamorado MD Primary Care Provider Active Start: October 02, 2024 End: October 02, 2024 Dr. Andres Olivarez MD Attending Provider Active S tart: October 02, 2024 End: October 02, 2024 Team Status: Inactive Member Role/Relationship Status Dates Dr. Robin Enamorado MD Primary Care Provider Active Start: October 02, 2024 End: October 02, 2024 Dr. Robin Enamorado MD Referring Provider Active Start: October 02, 2024 End: October 02, 2024 Dr. Gordo Royal MD Attending Provider Active Start: October 02, 2024 End: October 02, 2024 Team Status: Active Member Role/Relationship Status Dates Dr. Robin Enamorado MD Primary Care Provider Active Team Status: Inactive Member Role/Relationship Status Dates Dr. Robin Enamorado MD Primary Care Provider Active Start: October 06, 2024 End: October 06, 2024 Dr. Jean Carlos Wilburn DO Emergency Provider Active S tart: October 06, 2024 End: October 06, 2024 Reason for Visit (unrecogniz ed section and content) Reason Comments Back Pain Specialty Diagnoses / Procedures Referred By Contac t Referred To Contact Pain Management / PAIN MANAGEMENT Diagnoses FOLLOW UP Procedures EST PATIENT Robin Enamorado MD [address] [place] [address] Chely Verma PA-C [address] [place] [address] Referral ID Status Reason Start Date Expiration Date Visits Requested Visits Authorized [id number] Ref Not Required Financial Clearance Not Required 08/30/2022 11/28/2022 1 1 Reason Onset Date Comments Refill Request 07/28/2021 Reason Comments F/U 6 Month Reason Onset Date Comments Refill Request 09/14/2021 Reason Onset Date Comments Refill Request 01/29/2022 Reason Onset Date Comments Refill Request 02/16/2022 Reason Comments PAP compliance report Reason Comments Established Patient Reason Comments New Patient Evaluation Reason Comments Appointment Pre PM & R Reason Onset Date Comments Refill Request 06/22/2022 Specialty Diagnoses / Procedures Referred By Contac t Referred To Contact Pain Management / PAIN MANAGEMENT Diagnoses FOLLOW UP Procedures EST PATIENT Chely Verma PA-C [address] [place] [address] Chely Verma PA-C [address] [place] [address] Referral ID Status Reason Start Date Expiration Date V isits Requested Visits Authorized [id number] Pending Review 11/22/2022 11/22/2022 1 1 Reason Onset Date Comments Refill Request 12/07/2022 Reason Comments 6 mo follow up Reason Comments Patient Update Increased pain in ba ck Reason Comments Back Pain Reason Comments F/U 6 months Reason Comments Back Pain Pain (Shoulder Pain) Left Reason Onset Date Comments Refill Request 12/05/2023 Reason Comments Results Holter/event monitor Reason Comments Pain Reason Comments Scheduling a procedure Reason Comments F/U 6 months CPAP usage and needs to be discussed is needing new supplies Reason Comments Functional Capacity Eval Reason Onset Date Comments Refill Request 06/01/2024 Reason Comments Functional Capacity Eval PT Discharge Specialty Diagnoses / Procedures Referred By Contac t Referred To Contact 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, lumbar region Myalgia, other site Quadriplegia, unspecified Lesion of ulnar nerve, left upper limb FCE Procedures PHYSICAL PERFORMANCE TEST/CLARA W/REPRT EA 15 MIN PHYSICAL THERAPY EVALUATION HIGH COMPLEX 45 MINS NEW RS FCE Chely Verma PA-C [address] [place] [address] Phone: tel: fax: [facility] [address] [place] [address] Phone: tel: fax: Referral ID Status Reason Start Date Expiration Date V isits Requested Visits Authorized [id number] Authorized 03/04/2024 03/03/2025 99 99 Reason Comments Results MRI Reason Comments Back Pain Right knee pain Reason Comments Back Pain New pain x 2 months Reason Comments Time change for September 23 procedure Reason Comments Patient Question Reason Comments New Patient Specialty Diagnoses / Procedures Referred By Anil t Referred To Contact Urology Diagnoses Brown-Sequard syndrome (HCC) Procedures CONSULT TO UROLOGY OFFICE/OUTPATIENT NEW HIGH MDM 60 MINUTES Ainsley Alfonso, [facility] [address] [place] [address] Phone: tel: fax: Referral ID Status Reason Start Date Expiration Date V isits Requested Visits Authorized [id number] Closed PCP Requested Referral 09/02/2024 09/02/2025 1 1 PRN Active and Recently Administ ered Medications (unrecognized section and content) Medication Order 10/15/2023 10/16/2023 10/17/2023 bupivacaine (PF) 0.25 % (2.5 mg/mL) injection (SENSORCAINE MPF) (CANCELED) X (OR/PROCEDURE) PRN, Starting on Madonna 10/17/23 at 1008, Until Madonna 10/17/23 at 1015, Intraprocedure 1008 (Given - Provid er: Chris Cleveland MD) PRN Medication Order 07/12/2024 07/13/2024 07/14/2024 bupivacaine (PF) 0.25 % (2.5 mg/mL) injection (SENSORCAINE MPF) (CANCELED) X (OR/PROCEDURE) PRN, Starting on 07/14/24 at 1056, Until 07/14/24 at 1106, Intraprocedure 1056 (Given - Provid er: Chris Cleveland MD) PRN Medication Order 09/21/2024 09/22/2024 09/23/2024 iohexol injection (OMNIPAQUE 300) (CANCELED) X (OR/PROCEDURE) PRN, Starting on Sat09/23/24 at 1129, Until Sat09/23/24 at 1132, Intraprocedure 1129 (Given - Provid er: Frandy Yip MD - Comment: Omnipaque 240mg/ml) methylPREDNISolone acetate injection (DEPO-Medrol) (CANCELED) X (OR/PROCEDURE) PRN, Starting on Sat09/23/24 at 1129, Until Sat09/23/24 at 1132, Intraprocedure 1129 (Given - Provid er: Frandy Yip MD) Goals (unrecognized section and content) Goals may be documented in a n alternate sectionGoals may be documented in an alternate sectionGoals may be documented in an alternate section FOR RECORDS PERTAINING TO PATIENTS WHO ARE OR HAVE BEEN ENROLLED IN A CHEMICAL DEPENDENCY/SUBSTANCEABUSE PROGRAM, SOME INFORMATION MAY BE OMITTED. This clinical summary was aggregated from multiple sources. Caution should be exercised in using it in the provision of clinical care. This summary normalizes information from multiple sources, and as a consequence, information in this document may materially change the coding, format and clinical context of patient data. In addition, data may be omitted in some cases. CLINICAL DECISIONS SHOULD BE BASED ON THE PRIMARY CLINICAL RECORDS. [employer] [facility]. provides no warranty or guarantee of the accuracy or completeness of information in this document.
== END 2024-10-06 13:29 | disposition home or self-care (01) ==
PROVIDERS: Emergency Provider Emergency Medicine; PCP Internal Medicine; Visit Provider Emergency Medicine
DX: R51.9 Headache, unspecified (principal)
CPT/HCPCS: 70450; 80048; 85025; 96361; 96374; 96375; 99283; A4216

== ENCOUNTER 2024-10-07 20:33 | Emergency (ER) | payer MEDICARE, SELFPAY ==
[2024-10-07 20:35] VITALS: BP 106/74; PULSE 96; RESP 18; TEMP 38.3; O2SAT 97
[2024-10-07 20:38] VITALS: BP 106/74; PULSE 96; RESP 18; TEMP 38.3; O2SAT 97
[2024-10-07 21:00] VITALS: BP 120/84; PULSE 90; RESP 16; TEMP 38.1; O2SAT 98
[2024-10-07 21:02] VITALS: BMI 24.2
--- OUTSIDE RECORDS SUMMARY | 2024-10-07 21:16 | XMS RPT_ITS | CCD ---
Author Organization [facility] Care Team Providers Care Design Draftsman Name Role Phone PETAR INNA Lida Unavailable Unavailable TIFFANIE ANTHONY (FORTUNE COOKIE MAKER) Unavailable Unavailable Robin Enamorado MD Primary Care [...] Lexi vailable Corporate, Doctor Attending Unavailable Anthony SPECIAL DISTRIBUTION CLERK.FORTUNE COOKIE MAKER, Tiffanie Unavailable Citlali SPECIAL DISTRIBUTION CLERK.SENIOR TABLEAU DEVELOPER, Anneliese Unavailable Citlali SPECIAL DISTRIBUTION CLERK.SENIOR TABLEAU DEVELOPER, Anneliese Unavailable Citlali SPECIAL DISTRIBUTION CLERK.SENIOR TABLEAU DEVELOPER, Anneliese Unavailable CIRILO GARCIA Attending Unavailable CHELY VERMA Referring Unavailable TALAMPAS, ROBIN D Primary Care Unavailable Anthony SPECIAL DISTRIBUTION CLERK.FORTUNE COOKIE MAKER, Tiffanie Unavailable CHELY VERMA Attending Unavailable TALAMPAS, [...] TALAMPAS, ROBIN D Primary Care Unavailable AINSLEY ALOFNSO Referring Unavailable TALAMPAS, ROBIN D Primary Care [...] Kelsea WHALEN, Dr. Robin Zavala Referring Provider [phone] Lele WHALEN, Dr. Caro Attending Provider Juansi WHALEN, Dr. Campos Attending Provider Andres Olivarez Attending Unavailable Talampas, Robin Sally Primary Care Unavailable Talampas, Robin D Referring Unavailable Talampas, Robin D Primary Care Unavailable Gordo Royal Attending Unavailable Dr. Jean Carlos Wilburn DO Emergency Provider Medications Current Medications Medication Drug Class(es) Dates [...] needed Take by mouth. polyethylene glycol 3350 85809 mg powder for oral solution (20 sources) [...] current use of drug therapy; Translations: [Other chcf (current) drug therapy] Onset: 09-03-2019 Episodic Other aftercare (2 sources) Other chcf (current) drug therapy; Translations: [Other chcf (current) drug therapy] Onset: 09-23-2021 Episodic Other [...] Auto (Unsp spec) [#/Vol] 1.81 10*3/uL 0.83-4.51 [facility] Absolute neutrophil countOrd ered By: Jean Carlos Wilburn on 10-06-2024 Neutrophils (Bld) [#/Vol] 4.7 10*3/uL 2.0-7.7 [facility] Anion gap in Serum or Plasma Ordered By: Jean Carlos Wilburn on 10-06-2024 Anion gap [Moles/Vol] 11 mmol/L 5-15 [facility] Automated lymphocyte count a s percentage of total leukocytesOrdered By: Jean Carlos Wilburn on 10-06-2024 Lymphocytes/100 WBC Auto (Unsp spec) 24.7 % 19-41 [facility] BUN/creatinine ratioOrdered By: Jean Carlos Wilburn on 10-06-2024 Urea nitrogen/Creatinine [Mass ratio] 13.8 mg/mg 10-20 [facility] Basophil percentageOrdered B y: Jean Carlos Ungdago on 10-06-2024 Basophils/100 WBC (Bld) 0.5 % 0-1 [facility] Carbon dioxide, total [Moles /volume] in Central venous bloodOrdered By: Jean Carlos Wilburn on 10-06-2024 CO2 [Moles/Vol] 24.2 mmol/L 21.0-32.0 [facility] Chloride assayOrdered By: Rupinder Wilburn on 10-06-2024 Chloride [Moles/Vol] 103 mmol/L 98-108 [facility] Eosinophil percentageOrdered By: Jean Carlos Wilburn on 10-06-2024 Eosinophils/100 WBC (Bld) 0.3 % 0-5 [facility] Erythrocyte distribution wid th ratioOrdered By: Jean Carlos Wilburn on 10-06-2024 Erythrocyte distribution width (RBC) [Ratio] 12.3 % 11.6-14.6 [facility] Erythrocyte distribution wid th standard deviationOrdered By: Jean Carlos Wilburn on 10-06-2024 Erythrocyte distribution width (RBC) [Ratio] 40.5 fl 35.1-43.9 [facility] Glomerular filtration rate ( GFR) estimation/1.73 sq m using serum, plasma, or whole bOrdered By: Jean Carlos Wilburn on 10-06-2024 GFR/1.73 sq M.predicted among non-blacks MDRD (S/P/Bld) [Vol rate/Area] 92 mL/min/{1.73_m2} >60 [facility] Comment on above: mL/min/1.73m2 CKD-EP I Creatinine Equation (2020) Hematocrit Auto (Bld) [Volum e fraction]Ordered By: Jean Carlos Wilburn on 10-06-2024 Hematocrit (Bld) [Volume fraction] 43.5 % 40-54 [facility] Hemoglobin measurementOrdere d By: Jean Carlos Wilburn on 10-06-2024 Hemoglobin (Bld) [Mass/Vol] 15.1 g/dL 13.0-16.5 [facility] Immature granulocytes/100 WB C Auto (Bld)Ordered By: Jean Carlos Wilburn on 10-06-2024 Immature granulocytes/100 WBC (Bld) 1.400 % High 0.0-0.9 [facility] Comment on above: IG% - Immature Granu locytes (promyelocytes, myelocytes and metamyelocytes) > 1% indicates that a LEFT SHIFT is Present. MCV (mean corpuscular volume ) determinationOrdered By: Jean Carlos Wilburn on 10-06-2024 MCV (RBC) [Entitic vol] 89.9 fL 80-94 [facility] Mean corpuscular hemoglobin (MCH) determinationOrdered By: Jean Carlos Wilburn on 10-06-2024 MCH (RBC) [Entitic mass] 31.2 pg 27.0-32.0 [facility] Mean corpuscular hemoglobin concentration (MCHC) determinationOrdered By: JeanC arlos Wilburn on 10-06-2024 MCHC (RBC) [Mass/Vol] 34.7 g/dL 32-36 [facility] Mean platelet volume determi nationOrdered By: Jean Carlos Wilburn on 10-06-2024 Platelet mean volume (Bld) [Entitic vol] 8.3 fL 6.2-12.0 [facility] Monocyte percentageOrdered B y: Jean Carlos Wilburn on 10-06-2024 Monocytes/100 WBC (Bld) 9.5 % 0-10 [facility] Neutrophil percentageOrdered By: Jean Carlos Wilburn on 10-06-2024 Neutrophils/100 WBC (Bld) 63.6 % 47-70 [facility] Nucleated red blood cell per centageOrdered By: Jean Carlos Wilburn on 10-06-2024 Nucleated RBC/100 WBC (Bld) [Ratio] 0 % 0-5 [facility] Platelet countOrdered By: Rupinder Wilburn on 10-06-2024 Platelets (Bld) [#/Vol] 233 10*3/uL 150-450 [facility] Potassium measurement (mass/ volume)Ordered By: Jean Carlos Wilburn on 10-06-2024 Potassium (Unsp spec) [Mass/Vol] 3.5 mmol/L 3.3-5.1 [facility] RBC Auto (Bld) [#/Vol]Ordere d By: Jean Carlos Rosedago on 10-06-2024 RBC (Bld) [#/Vol] 4.84 10*6/uL 4.6-6.2 [facility] Serum creatinine measurement (mass/volume)Ordered By: Oksanaus Wilburn on 10-06-2024 Creatinine [Mass/Vol] 1.01 mg/dL 0.70-1.20 [facility] Serum glucose measurement (m ass/volume)Ordered By: Oksanaus Wilburn on 10-06-2024 Glucose [Mass/Vol] 94 mg/dL 70-99 [facility] Serum or plasma calcium clara urement (mass/volume)Ordered By: Oksanaus Wilburn on 10-06-2024 Calcium [Mass/Vol] 9.0 mg/dL 7.6-11.0 [facility] Serum or plasma urea nitroge n measurement (mass/volume)Ordered By: Jean Carlos Rosedago on 10-06-2024 Urea nitrogen [Mass/Vol] 14 mg/dL 4-19 [facility] Sodium levelOrdered By: Chip rm Akila on 10-06-2024 Sodium [Moles/Vol] 138 mmol/L 133-145 [facility] White blood cell (WBC) count Ordered By: Oksanaus Wilburn on 10-06-2024 WBC (Bld) [#/Vol] 7.3 10*3/uL 4.4-11.0 [facility] L/S Spine Min 4 Viewson L/S Spine Min 4 Views [facility] [address] [place] [address] L/S Spine Min 4 Views MR#: [id number] Acct: [id number] Name: CHELY SAMAYOA Rep #: [id number] : 1975 M 49 From: Abel Zavala PCP: Dr. Robin Enamorado MD Status: DEP AMB Study: L/S Spine Min 4 Views Date of Exam: 10/02/24 Exam# [id number] Ordering Dr: Keren Owens PROCEDURE: L/S SPINE [...] acute fracture site is evident. Reading Location: [facility] CC: KADEN Palm; Dr. Robin Enamorado MD Molder Operator: Signed Normal [facility] Orthopedic Visit Reporton Orthopedic Visit Report [facility] [address] [place] [address] OFFICE VISIT Date of Service: 10/02/24 MR#: [id number] Acct: [id number] Name: CHELY SAMAYOA Rep #: [id number] : 1975 Provider: Dr. Gordo Royal MD Age/Sex: 49/M Location: [facility] Status: Signed Intake Intake Visit Reasons: LUMBAR [...] the back in the past. He sees [facility] pain management in [place]. The pain did go down the whole [...] thoracic and lumbar MRI done with the [facility]. He was able to walk more up [...] side, r (more content not included)... Normal [facility] OPERATIVE NOon 09-23-2024 OPERATIVE NO HNO ID: [id number] Author: FRANDY YIP MD Service: Anesthesiology Author Type: Anesthesiologist Type: Operative Report Filed: 09/23/2024 11:32 Note Text: OPERATIVE/PROCEDURE REPORT : LOG ID: [id number] SURGERY/PROCEDURE DATE: 09/23/2024 INCISION/PROCEDURE START TIME: 11:24 [...] Lumbar interlaminar epidural steroid injectcion SURGEON(S)/PROCEDURALIST(S) AND BORDER MEASURER(S): Surgeons and Role: * Frandy Yip MD [...] understanding. Frandy Yip MD September 23, 2024 [facility] CNOVon 09-21-2024 CNOV Office Visit (UROLMN ) CHELY SAMAYOA ([id number]) 1975 M Date Time Provider Department 09/21/24 9:00 AM PABLO URIAS During your visit today, we recorded the following information about you: Pablo Urias MD 09/21/2024 10:44 AM Signed [facility] NEW PATIENT HISTORY AND PHYSICAL EXAM PATIENT INFO: Chely Samayoa 49 year old REFERRING M.D.: Ainsley Alfonso [address] [place] [address] ==== HISTORY: Chely Samayoa is a 49 [...] positive for heart murmur; planning to see upstream biomanufacturing technician in couple of months Respiratory: positive for shortness of breath; unrelated to positions or activities Gastrointestinal: positive for neurogenic bowel; sometimes goes up to 4 days without having BM, does digital stimulation PRN Integum (more content not included)... Normal [facility] Laboratory - Hematology and Cell countson 09-21-2024 Hemoglobin Ql (U) Negative Negative [facility] Laboratory - Urinalysison Protein Ql (U) Negative Negative mg/dL [facility] No Panel Informationon 09-21 BILIRUBIN UA (POCT) Negative Negative [facility] CLARITY UA (POCT) Clear [facility] COLOR UA (POCT) Yellow [facility] GLUCOSE UA (POCT) Negative Negative mg/dL [facility] Interpretation and review of laboratory results Abnormal [facility] KETONE UA (POCT) Negative Negative mg/dL [facility] LEUKOCYTES UA (POCT) Negative Negative [facility] NITRITE UA (POCT) Negative Negative [facility] PH UA (POCT) 6.5 4.5 - 8.0 [facility] SPECIFIC GRAVITY UA (POCT) 1.015 1.005 - 1.030 [facility] UROBILINOGEN UA (POCT) 2 Abnormal Berna l E.U./dL [facility] Location:[facility] lopez, [address] [place] [address], [address] [place] [address] POINT OF CARE [facility] Rachid 09-15-2024 CNPN Telephone (Countercepts) MARISSACHELY ([id number]) 1975 M Date Time Provider Department 09/15/24 [...] low back pain without sciatica *03/09/2019 Other rn long term care (current) drug therapy [Z79.899]09/03/2019 Opioid dependence, uncomplicated (HCC) [F11.20] 07/19/2022 Chronic pain syndrome [G89.4] 02/18/2023 Lumbar spondylosis [M47.816] 02/18/2023 Myofascial pain syndrome [M79.18] 02/18/2023 Palpitations [R00.2] 10/28/2023 Encounter Status:Closed by FRANNY DUPREE on 09/16/24 [facility] CNCONon 09-14-2024 CNCON Consults (REHMMN) CHELY SAMAYOA ([id number]) 1975 [place] Date Time Provider Department 09/14/24 AINSLEY ALFONSO During your visit today, we recorded the following information about you: Allergies As of Date: 09/14/2024 (No Known Allergies) Date Reviewed: 09/02/2024 Reviewed by: Batsheva Rosas MA - Fully Assessed Primary Visit Diagnosis:Weakness of right lower extremity [R29.898] Order(s):CONSULT TO NEUROLOGY [9070] Order #: [id number]: 1 FUTURE Prescriptions as of 09/14/2024 - [...] low back pain without sciatica *03/09/2019 Other rn long term care (current) drug therapy [Z79.899]09/03/2019 Opioid dependence, uncomplicated (HCC) [F11.20] 07/19/2022 Chronic pain syndrome [G89.4] 02/18/2023 Lumbar spondylosis [M47.816] 02/18/2023 Myofascial pain syndrome [M79.18] 02/18/2023 Palpitations [R00.2] 10/28/2023 Encounter Status:Closed by AINSLEY ALFONSO on 09/14/24 Normal [facility] MR Cervical spine WO contras ton 09-11-2024 * * *Final Report* * * DATE OF EXAM: Sep 11 2024 8:26AM [facility] 0297 - MRI CERVICAL SPINE [...] neural foraminal stenosis. DIVISION OF RADIOLOGY Provider, [facility] - 09/11/2024 * * *Final Report* * * DATE OF EXAM: Sep 11 2024 8:26AM [facility] 0297 - MRI CERVICAL SPINE [...] thoracic rib is at the T1 level. Molder Operator: CARLA Transcribe Date/Time: Sep 11 2024 8:48A Dictated by : CARSON VERMA MD This examination was interpreted and the report reviewed and electronically signed by: CARSON VERMA MD on Sep 11 2024 9:07AM EST [facility] MR Thoracic spine WO contras ton 09-11-2024 [...] stenosis. DIVISION OF RADIOLOGY Provider, Columba Escamilla [facility] - 09/11/2024 * * *Final Report* * [...] thoracic rib is at the T1 level. Molder Operator: [facility] Transcribe Date/Time: Sep 11 2024 8:48A Dictated by : CARSON VERMA MD This examination was interpreted and the report reviewed and electronically signed by: CARSON VERMA MD on Sep 11 2024 9:07AM [facility] MRI CERVICAL SPINE WO IVCONo n 09-11-2024 MRI CERVICAL SPINE WO IVCON * * *Final Report* * * DATE OF EXAM: Sep 11 2024 8:26AM [facility] 0297 - MRI CERVICAL SPINE [...] thoracic rib is at the T1 level. Molder Operator: CARLA Transcribe Date/Time: Sep 11 2024 8:48A Dictated by : CARSON VERMA MD This examination was interpreted and the report reviewed and electronically signed by: CARSON VERMA MD on Sep 11 2024 9:07AM EST [id number] Normal [facility] MRI THORACIC SPINE WO IVCONo n 09-11-2024 MRI THORACIC SPINE WO IVCON * * *Final Report* * * DATE OF EXAM: Sep 11 2024 8:26AM [facility] 0325 - MRI THORACIC SPINE [...] thoracic rib is at the T1 level. Molder Operator: [facility] Transcribe Date/Time: Sep 11 2024 8:48A Dictated by : CARSON VERMA MD This examination was interpreted and the report reviewed and electronically signed by: CARSON VERMA MD on Sep 11 2024 9:07AM EST [id number] Normal [facility] No Panel Informationon 09-11 IMPRESSION: [...] thoracic rib is at the T1 level. Molder Operator: [facility] Transcribe Date/Time: Sep 11 2024 8:48A Dictated by : CARSON VERMA MD This examination was interpreted and the report reviewed and electronically signed by: CARSON VERMA MD on Sep 11 2024 9:07AM EST DIVISION OF RADIOLOGY Radiology Study observation (narrative) [facility] No Panel InformationOrdered By: Ccf Provider on 09-11-2024 [facility] CNOVon 09-02-2024 CNOV Office Visit ([facility] ) CHELY SAMAYOA ([id number]) 1975 M Date Time Provider Department 09/02/24 11:15 AM AINSLEY ALFONSO [facility] During your visit today, we recorded the [...] and cervical SCI. He was treated at [facility] where he was found to have a C5 burst fracture and cervical SCI with pubic diastasis and right sacral fracture.. He was taken to the OR on 04/07/07 for a C4-6 ACDF and pelvic fracture repair including a left S-I joint pinning and B/L pubic ORIF. IVC filter was placed on 04/09/07. [facility] [...] was placed on 04/09/07. 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 In [...] hx o (more content not included)... Normal [facility] CNPNon 08-25-2024 CNPN Telephone (RMRIWS) CHELY SAMAYOA ([id number]) 1975 M Date Time Provider Department 08/25/24 SELF RMRIWS During your visit today, we recorded the following information about you: Kenneth Berta Oliver 08/25/2024 12:25 PM Signed Patient calling in asking if he can get a disk made of his MRI completed on 07/29/24 and the report. Please call patient when ready for pick up attendant. Berta Cooper August 25, 2024 12:24 PM Allergies As of Date: 08/25/2024 (No Known Allergies) Date Reviewed: 07/30/2024 Reviewed by: Chely Verma PA-C - Fully Assessed Reason for Visit: Patient Question [7732] Prescriptions as of 09/18/2024 - traMADol (ULTRAM) [...] low back pain without sciatica *03/09/2019 Other rn long term care (current) drug therapy [Z79.899]09/03/2019 Opioid dependence, uncomplicated (HCC) [F11.20] 07/19/2022 Chronic pain syndrome [G89.4] 02/18/2023 Lumbar spondylosis [M47.816] 02/18/2023 Myofascial pain syndrome [M79.18] 02/18/2023 Palpitations [R00.2] 10/28/2023 Encounter Status:Closed by BERTA COOPER on 09/18/24 Normal [facility] CNOVon 07-30-2024 CNOV Office Visit (PAMMJK ) CHELY SAMAYOA ([id number]) 1975 M Date Time Provider Department 07/30/24 11:30 AM CHELY VERMAJK During your visit today, we recorded the following information about you: Pulse Blood pressure 77/minute 145/96 Chely Verma PA-C 07/30/2024 12:13 PM Signed This note was created using Admeld. Subjective Chely Samayoa is a 49 year [...] Pulse 77 SpO2 (more content not included)... [facility] BRITNEYN Telephone (YOHANNES) CHELY SAMAYOA ([id number]) 1975 Date Time Provider Department 07/29/24 CHELY [...] low back pain without sciatica *03/09/2019 Other chcf (current) drug therapy [Z79.899]09/03/2019 Opioid dependence, uncomplicated (HCC) [F11.20] 07/19/2022 Chronic pain syndrome [G89.4] 02/18/2023 Lumbar spondylosis [M47.816] 02/18/2023 Myofascial pain syndrome [M79.18] 02/18/2023 Palpitations [R00.2] 10/28/2023 Encounter Status:Closed by ANITA HARDING on 07/29/24 [facility] MR Lumbar spine WO contrasto n 07-29-2024 IMPRESSION: L4-5 and L5-S1 level spondylosis as detailed. COUNTING REFERENCE: Inferior lumbar disc taken as L5-S1. Structural anomalies: None. Molder Operator: PSCB Transcribe Date/Time: Jul 29 2024 10:14A Dictated by : EL URENA MD This examination was interpreted and the report reviewed and electronically signed by: EL URENA MD on Jul 29 2024 10:17AM [facility] DIVISION OF RADIOLOGY * * *Final Report* * * DATE OF EXAM: Jul 29 2024 8:15AM [facility] 0303 - MRI LUMBAR SPINE [...] narrowing. DIVISION OF RADIOLOGY Provider, Mary Francine [facility] - 07/29/2024 * * *Final Report* * [...] disc taken as L5-S1. Structural anomalies: None. Molder Operator: PSCB Transcribe Date/Time: Jul 29 2024 10:14A Dictated by : EL URENA MD This examination was interpreted and the report reviewed and electronically signed by: EL URENA MD on Jul 29 2024 10:17AM EST [facility] Radiology Study observation (narrative) [facility] MR Lumbar spine WO contrastO rdered By: Ccf Provider on 07-29-2024 [facility] MRI LUMBAR SPINE WO IVCONon 07-29-2024 MRI [...] disc taken as L5-S1. Structural anomalies: None. Molder Operator: PSCB Transcribe Date/Time: Jul 29 2024 10:14A Dictated by : EL URENA MD This examination was interpreted and the report reviewed and electronically signed by: EL URENA MD on Jul 29 2024 10:17AM EST [id number] Normal [facility] CNPChristie 07-14-2024 [facility] Telephone (hurleypalmerflattWST) CHELY SAMAYOA ([id number]) 1975 M Date Time Provider Department 07/14/24 [...] low back pain without sciatica *03/09/2019 Other rn long term care (current) drug therapy [Z79.899]09/03/2019 Opioid dependence, uncomplicated (HCC) [F11.20] 07/19/2022 Chronic pain syndrome [G89.4] 02/18/2023 Lumbar spondylosis [M47.816] 02/18/2023 Myofascial pain syndrome [M79.18] 02/18/2023 Palpitations [R00.2] 10/28/2023 Encounter Status:Closed by LEONOR NAIK on 07/14/24 [facility] OPERATIVE NOon 07-14-2024 OPERATIVE NO HNO ID: [id number] Author: CHRIS CLEVELAND MD Service: Pain Management [...] minutes and patient felt better for discharge. [facility] CNOVon 06-25-2024 CNOV Office Visit (LAVERNEJK ) CHELY SAMAYOA ([id number]) 1975 M Date Time Provider Department 06/25/24 [...] (PCP), tizanidine, and baclofen. You can add [phone] mg of tylenol extra per day as [...] to be done: Trigger Point Injection A trencher driver is required: No Oral Sedation is [...] AM Signed This note was created using WhatsAppter. Subjective Chely Samayoa is a 49 year [...] knee Neuropathic hans (more content not included)... [facility] CNTHERAPYon 06-23-2024 CNTHERAPY OT/PT/Speech Visit ( PTLHO) CHELY SAMAYOA ([id number]) 1975 M Date Time Provider Department 06/23/24 12:15 PM CIRILO GARCIA PTL Date Time Provider Department Center 06/23/2024 12:15 PM [id number][facility] Visit: Functional Capacity Eval [3549] [...] (MOTRIN) 800 mg tablet Take by mouth. [facility] 05-11-2024 [facility] Telephone (RSQ) CHELY SAMAYOA ([id number]) 1975 M Date Time Provider Department 05/11/24 CHELY VERMA [facility] During your visit today, we recorded the [...] AM Signed Attempted to call pt [facility] Pt did not answer so [facility] Julianna Diggs Saul Valdivia 05/13/2024 9:21 AM [...] low back pain without sciatica *03/09/2019 Other rn long term care (current) drug therapy [Z79.899]09/03/2019 Opioid dependence, uncomplicated (HCC) [F11.20] 07/19/2022 Chronic pain syndrome [G89.4] 02/18/2023 Lumbar spondylosis [M47.816] 02/18/2023 Myofascial pain syndrome [M79.18] 02/18/2023 Palpitations [R00.2] 10/28/2023 Encounter Status:Closed by AINSLEY WALKER on 05/14/24 [facility] Rachid 04-20-2024 [facility] Telephone (YANNI) CHELY SAMAYOA ([id number]) 1975 M Date Time Provider Department 04/20/24 [...] low back pain without sciatica *03/09/2019 Other chcf (current) drug therapy [Z79.899]09/03/2019 Opioid dependence, uncomplicated (HCC) [F11.20] 07/19/2022 Chronic pain syndrome [G89.4] 02/18/2023 Lumbar spondylosis [M47.816] 02/18/2023 Myofascial pain syndrome [M79.18] 02/18/2023 Palpitations [R00.2] 10/28/2023 Encounter Status:Closed by FRANNY DUPREE on 04/20/24 [facility] CNOVon 04-08-2024 CNOV Office Visit (INTMWS ) CHELY SAMAYOA ([id number]) 1975 M Date Time Provider Department 04/08/24 8:00 AM ROBIN ENAMORADO INTMWS During your visit today, we recorded the following information about you: Pulse Blood pressure 83/minute 100/60 Robin Enamorado MD 04/08/2024 8:54 AM Signed This note was created using Netscaperiter. Subjective Chely Samayoa is a 48 year [...] 27 An (more content not included)... Normal [facility] CBC panel Auto (Bld)on 04-06 Erythrocyte distribution width (RBC) [Ratio] 12.2 % Normal 11.5-15.0 [facility] Comment on above: Order Comment: Speci men Type: BLOOD SPECIMENOrdering Facility: [facility] Address: [address] [place] [address] Performed By: #### 5 8410-2 ####[facility] LABCLIA [id number] [place] [address] [place] Hematocrit (Bld) [Volume fraction] 44.0 % Normal 39.0-51.0 [facility] Comment on above: Order Comment: Speci men Type: BLOOD SPECIMENOrdering Facility: [facility] Address: [address] [place] [address] Performed By: #### 5 8410-2 ####[facility] LABIA [id number] [place] [address] [place] Hemoglobin (Bld) [Mass/Vol] 15.3 g/dL Normal 13.0-17.0 [facility] Comment on above: Order Comment: Speci men Type: BLOOD SPECIMENOrdering Facility: [facility] Address: [address] [place] [address] Performed By: #### 5 8410-2 ####[facility] [id number] [place] [address] [place] MCH (RBC) [Entitic mass] 31.6 pg Normal 26.0-34.0 [facility] Comment on above: Order Comment: Speci men Type: BLOOD SPECIMENOrdering Facility: [facility] Address: [address] [place] [address] Performed By: #### 5 8410-2 ####[facility] [id number] [place] [address] [place] MCHC (RBC) [Mass/Vol] 34.8 g/dL Normal 30.5-36.0 [facility] Comment on above: Order Comment: Speci men Type: BLOOD SPECIMENOrdering Facility: [facility] Address: [address] [place] [address] Performed By: #### 5 8410-2 ####[facility] [id number] [place] [address] [place] MCV (RBC) [Entitic vol] 90.9 fL Normal 80.0-100.0 [facility] Comment on above: Order Comment: Speci men Type: BLOOD SPECIMENOrdering Facility: [facility] Address: [address] [place] [address] Performed By: #### 5 8410-2 ####[facility] [id number] [place] [address] [place] Nucleated RBC (Bld) [#/Vol] 10*3/uL Normal <0.01 [facility] Comment on above: Order Comment: Speci men Type: BLOOD SPECIMENOrdering Facility: [facility] Address: [address] [place] [address] Performed By: #### 5 8410-2 ####[facility] [id number] [place] [address] [place] Platelet mean volume (Bld) [Entitic vol] 8.9 fL Low 9.0-12.7 [facility] Comment on above: Order Comment: Speci men Type: BLOOD SPECIMENOrdering Facility: [facility] Address: [address] [place] [address] Performed By: #### 5 8410-2 ####[facility] [id number] [place] [address] [place] Platelets (Bld) [#/Vol] 234 10*3/uL Normal 150-400 [facility] Comment on above: Order Comment: Speci men Type: BLOOD SPECIMENOrdering Facility: [facility] Address: [address] [place] [address] Performed By: #### 5 8410-2 ####[facility] [id number] [place] [address] [place] RBC (Bld) [#/Vol] 4.84 10*6/uL Normal 4.20-6.00 [facility] Comment on above: Order Comment: Speci men Type: BLOOD SPECIMENOrdering Facility: [facility] Address: [address] [place] [address] Performed By: #### 5 8410-2 ####[facility] [id number] [place] [id number] [place] WBC (Bld) [#/Vol] 6.17 10*3/uL Normal 3.70-11.00 [facility] Comment on above: Order Comment: Speci men Type: BLOOD SPECIMENOrdering Facility: [facility] Address: [address] [place] [address] Performed By: #### 5 8410-2 ####[facility] [id number] [place] [address] [place] Comprehensive metabolic 2000 panelon 04-06-2024 Albumin [Mass/Vol] 4.3 g/dL Normal 3.9-4.9 [facility] Comment on above: Order Comment: Speci men Type: BLOOD SPECIMENOrdering Facility: [facility] Address: [address] [place] [address] Performed By: #### 2 4323-8, 3051-0, 3024-7, 3016-3 ####[facility] [id number] [place] [address] [place] ALP [Catalytic activity/Vol] 60 U/L Normal 38-113 [facility] Comment on above: Order Comment: Speci men Type: BLOOD SPECIMENOrdering Facility: [facility] Address: [address] [place] [address] Performed By: #### 2 4323-8, 3051-0, 3024-7, 3016-3 ####[facility] [id number] [place] [address] [place] ALT [Catalytic activity/Vol] 20 U/L Normal 10-54 [facility] Comment on above: Order Comment: Speci men Type: BLOOD SPECIMENOrdering Facility: [facility] Address: [address] [place] [address] Performed By: #### 2 4323-8, 3051-0, 3024-7, 3016-3 ####[facility] [id number] [address] [address] [place] Anion gap [Moles/Vol] 10 mmol/L Normal 8-15 [facility] Comment on above: Order Comment: Speci men Type: BLOOD SPECIMENOrdering Facility: [facility] Address: [address] [place] [address] Performed By: #### 2 4323-8, 3051-0, 3024-7, 3016-3 ####[facility] [id number] [place] [address] [place] AST [Catalytic activity/Vol] 29 U/L Normal 14-40 [facility] Comment on above: Order Comment: Speci men Type: BLOOD SPECIMENOrdering Facility: [facility] Address: [address] [place] [address] Performed By: #### 2 4323-8, 3051-0, 3024-7, 3016-3 ####[facility] [id number] [place] [id number] [place] Bilirubin [Mass/Vol] 1.1 mg/dL Normal 0.2-1.3 [facility] Comment on above: Order Comment: Speci men Type: BLOOD SPECIMENOrdering Facility: [facility] Address: [address] [place] [address] Performed By: #### 2 4323-8, 3051-0, 3024-7, 3016-3 ####[facility] [id number] [place] [id number] [place] Calcium [Mass/Vol] 9.3 mg/dL Normal 8.5-10.2 [facility] Comment on above: Order Comment: Speci men Type: BLOOD SPECIMENOrdering Facility: [facility] Address: [address] [place] [address] Performed By: #### 2 4323-8, 3051-0, 3024-7, 3016-3 ####[facility] [id number] [place] [address] [place] Chloride [Moles/Vol] 105 mmol/L Normal 98-107 [facility] Comment on above: Order Comment: Speci men Type: BLOOD SPECIMENOrdering Facility: [facility] Address: [address] [place] [address] Performed By: #### 2 4323-8, 3051-0, 3024-7, 3016-3 ####[facility] [id number] [place] [address] [place] CO2 [Moles/Vol] 27 mmol/L Normal 22-30 [facility] Comment on above: Order Comment: Speci men Type: BLOOD SPECIMENOrdering Facility: [facility] Address: [address] [place] [address] Performed By: #### 2 4323-8, 3051-0, 3024-7, 3016-3 ####[facility] [id number] [place] [address] [place] Creatinine [Mass/Vol] 0.97 mg/dL Normal 0.73-1.22 [facility] Comment on above: Order Comment: Speci men Type: BLOOD SPECIMENOrdering Facility: [facility] Address: [address] [place] [address] Performed By: #### 2 4323-8, 3051-0, 3024-7, 3016-3 ####[facility] [id number] [place] [address] [place] Creatinine and Glomerular filtration rate.predicted panel (S/P/Bld) 98 mL/min/1.73m??? Normal >=60 [facility] Comment on above: Order Comment: Speci men Type: BLOOD SPECIMENOrdering Facility: [facility] Address: [facility] [place] [address] Result Comment: Velia mated Glomerular Filtration Rate [...] By: #### 2 4323-8, 3051-0, 3024-7, 6-3 ####[facility] [id number] [place] [address] [place] Glucose [Mass/Vol] 109 mg/dL High 74-99 [facility] Comment on above: Order Comment: Calderon sherman Type: BLOOD SPECIMENOrdering Facility: [facility] Address: [address] [place] [address] Result Comment: The Canadian Diabetes Association (ADA) provides guidance for cutoff [...] Standards of Medical Care in Diabetes 2016, Canadian Diabetes Association. Diabetes Care. 2016.39(Suppl 1). Performed By: #### 2 4323-8, 3051-0, 3024-7, 6-3 ####[facility] [id number] [place] [id number] [place] Potassium [Moles/Vol] 4.4 mmol/L Normal 3.7-5.1 [facility] Comment on above: Order Comment: Calderon sherman Type: BLOOD SPECIMENOrdering Facility: [facility] Address: [address] [place] [id number] Performed By: #### 2 4323-8, 3051-0, 3024-7, 3016-3 ####[facility] [id number] [place] [id number] [place] Protein [Mass/Vol] 6.7 g/dL Normal 6.3-8.0 [facility] Comment on above: Order Comment: Speci men Type: BLOOD SPECIMENOrdering Facility: [facility] Address: [address] [place] [address] Performed By: #### 2 4323-8, 3051-0, 3024-7, 3016-3 ####[facility] [id number] [place] [address] [place] Sodium [Moles/Vol] 142 mmol/L Normal 136-144 [facility] Comment on above: Order Comment: Speci men Type: BLOOD SPECIMENOrdering Facility: [facility] Address: [address] [place] [address] Performed By: #### 2 4323-8, 3051-0, 3024-7, 3016-3 ####[facility] [id number] [place] [address] [place] Urea nitrogen [Mass/Vol] 19 mg/dL Normal 9-24 [facility] Comment on above: Order Comment: Speci men Type: BLOOD SPECIMENOrdering Facility: [facility] Address: [address] [place] [address] Performed By: #### 2 4323-8, 3051-0, 3024-7, 3016-3 ####[facility] [id number] [place] [id number] [place] Magnesium SerPl-mCncon 04-06 Magnesium [Mass/Vol] 2.2 mg/dL Normal 1.7-2.3 [facility] Comment on above: Order Comment: Speci men Type: BLOOD SPECIMENOrdering Facility: [facility] Address: [address] [place] [address] Performed By: #### 1 9123-9 ####[facility] [id number] [place] [address] [place] T3Free SerPl-mCncon 04-06-19 25 Free T3 [Mass/Vol] 2.8 pg/mL Normal 2.3-4.1 [facility] Comment on above: Order Comment: Speci men Type: BLOOD SPECIMENOrdering Facility: [facility] Address: [address] [place] [address] Performed By: #### 2 4323-8, 3051-0, 3024-7, 3016-3 ####[facility] [id number] [place] [address] [place] T4 Free SerPl-mCncon 025 Free T4 [Mass/Vol] 1.4 ng/dL Normal 0.9-1.7 [facility] Comment on above: Order Comment: Speci men Type: BLOOD SPECIMENOrdering Facility: [facility] Address: [address] [place] [address] Performed By: #### 2 4323-8, 3051-0, 3024-7, 3016-3 ####[facility] [id number] [place] [address] [place] TSH SerPl-aCncon 04-06-2024 TSH Qn 1.080 m[IU]/L Normal 0.270-4.20 0 [facility] Comment on above: Order Comment: Speci men Type: BLOOD SPECIMENOrdering Facility: [facility] Address: [address] [place] [address] Performed By: #### 2 4323-8, 3051-0, 3024-7, 3016-3 ####[facility] [id number] [place] [address] [place] CNOVon 04-01-2024 CNOV Office Visit (PAMMJK ) CHELY SAMAYOA ([id number]) 1975 Date Time Provider Department 04/01/24 9:30 [...] result) Impression: IMPRESSION: No acute osseous abnormality. Molder Operator: CARLA Transcribe Date/Time: Oct 05 2023 11:51A... Most recent urine drug screen r (more content not included)... [facility] CNPChristie 04-01-2024 CNPN Telephone (JOHANNAIN) CHELY SAMAYOA ([id number]) 1975 M Date Time Provider Department 04/01/24 [...] low back pain without sciatica *03/09/2019 Other rn long term care (current) drug therapy [Z79.899]09/03/2019 Opioid dependence, uncomplicated (HCC) [F11.20] 07/19/2022 Chronic pain syndrome [G89.4] 02/18/2023 Lumbar spondylosis [M47.816] 02/18/2023 Myofascial pain syndrome [M79.18] 02/18/2023 Palpitations [R00.2] 10/28/2023 Encounter Status:Closed by FRANNY DUPREE on 04/01/24 [facility] Rachid 03-03-2024 CNPN Telephone (INTMWS) CHELY SAMAYOA ([id number]) 1975 M Date Time Provider Department 03/03/24 [...] ECG findings and a final report from upstream biomanufacturing technician reading). Thought I would get a [...] thinks he might want to see a upstream biomanufacturing technician. Pt doesn't want to decide right now. States he has an appt with pcp in Apr and plans to discuss it then. Robin Enamorado MD 03/12/2024 2:26 PM Signed Noted If he wants to see one of our cardiologists who come to [place], since they come Mondays and alternate every other week, can take months to get in with them. So if prefers to see [facility] upstream biomanufacturing technician in [facility], recommend file consult order now knowing might [...] low back pain without sciatica *03/09/2019 Other [facility] (current) drug therapy [Z79.899]09/03/2019 Opioid dependence, uncomplicated (HCC) [F11.20] 0 (more content not included)... Normal [facility] CNOVon 01-09-2024 CNOV Office Visit (PAMMJK ) CHELY SAMAYOA ([id number]) 1975 M Date Time Provider Department 01/09/24 9:30 AM BAYRON CHELY CARRANZA During your visit today, we recorded the following information about you: Pulse Respiration Blood pressure Weight 70/minute 16/minute 119/81 83.9 kg Bayron Chely Escobedo PA-C 01/09/2024 10:13 AM Signed This note was created using WhatsAppter. 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 10/17/2023 01/09/2024 INTAKE PAIN ASSESSMENT Are you [...] - ICD9: 722.52 (more content not included)... [facility] OPERATIVE NOon 10-17-2023 OPERATIVE NO HNO ID: [id number] Author: CHRIS [place] MD Service: Pain Management [...] 0.25% bupivacaine; distributed equally at each site. [facility] No Panel Informationon 10-04 IMPRESSION: No acute osseous abnormality. Molder Operator: PSCB Transcribe Date/Time: Oct 05 2023 11:51A Dictated by : DREA CAMACHO DO This examination was interpreted and the report reviewed and electronically signed by: DREA CAMACHO DO on Oct 05 2023 11:53AM [facility] DIVISION OF RADIOLOGY No Panel InformationOrdered By: Ccf Provider on 10-05-2023 [facility] XR Knee - left AP and Latera [...] of remote Dutch-Schlatter. DIVISION OF RADIOLOGY Provider, [facility] - 10/05/2023 * * *Final Report* [...] RIGHT anterior tibial tubercle, sequela of remote Festus-Schlatter. IMPRESSION IMPRESSION: No acute osseous abnormality. Molder Operator: CARLA Transcribe Date/Time: Oct 05 2023 11:51A Dictated by : DREA CAMACHO DO This examination was interpreted and the report reviewed and electronically signed by: DREA CAMACHO DO on Oct 05 2023 11:53AM [facility] XR Knee - right AP and [...] RIGHT anterior tibial tubercle, sequela of remote Dtuch-Schlatter. DIVISION OF RADIOLOGY Provider, [facility] - 10/05/2023 * * *Final Report* [...] Dutch-Schlatter. IMPRESSION IMPRESSION: No acute osseous abnormality. Molder Operator: PSCB Transcribe Date/Time: Oct 05 2023 11:51A Dictated by : DREA CAMACHO DO This examination was interpreted and the report reviewed and electronically signed by: DREA CAMACHO DO on Oct 05 2023 11:53AM EST [facility] CNOVon 10-03-2023 CNOV Office Visit (PAMMJK ) CHELY SAMAYOA ([id number]) 1975 M Date Time Provider Department 10/03/23 9:00 AM CHELY VERMA During your visit today, we recorded the following information about you: Pulse Respiration Blood pressure Weight 82/minute 18/minute 116/74 83.9 kg Height 1.88 m Chely Verma PA-C 10/03/2023 9:18 AM Signed This note was created using Admeld. Subjective Chely Samayoa is a 48 year [...] random drug s (more content not included)... [facility] CNOVon 10-02-2023 CNOV Office Visit (INTMWS ) CHELY SAMAYOA ([id number]) 1975 M Date Time Provider Department 10/02/23 8:00 AM ROBIN ENAMORADO INTMWS During your visit today, we recorded the following information about you: Pulse Respiration Blood pressure 94/minute 16/minute 110/72 Robin Enamorado MD 10/02/2023 12:11 PM Signed This note was created using Netscaperiter. Subjective Chely Samayoa is a 48 year [...] PMANDR provider tomorrow 2. Intermittent palpitations R00.2 [facility] EVENT MONITOR COMPLETE BLOOD COUNT COMPREHENSIVE METABOLIC PANEL MAGNESIUM Sometimes associated with SOB.Sounds like ectopy with pause. No syncope or (more content not included)... Normal [facility] No Panel Informationon 10-01 Radiology Study observation (narrative) [facility] XR KNEE 2V AP/LAT LTon 10-01 XR [...] remote Dutch-Schlatter. IMPRESSION: No acute osseous abnormality. Molder Operator: CARLA Transcribe Date/Time: Oct 05 2023 11:51A Dictated by : DREA CAMACHO DO This examination was interpreted and the report reviewed and electronically signed by: DREA CAMACHO DO on Oct 05 2023 11:53AM EST [id number] Normal [facility] XR KNEE 2V AP/LAT RTon [...] remote Dutch-Schlatter. IMPRESSION: No acute osseous abnormality. Molder Operator: CARLA Transcribe Date/Time: Oct 05 2023 11:51A Dictated by : DREA CAMACHO DO This examination was interpreted and the report reviewed and electronically signed by: DREA CAMACHO DO on Oct 05 2023 11:53AM EST [id number] Normal [facility] Basic metabolic 2000 panelon 09-30-2023 Anion gap [Moles/Vol] 11 mmol/L Normal 8-15 [facility] Comment on above: Order Comment: Speci men Type: BLOOD SPECIMENOrdering Facility: [facility] Address: [address] [place] [address] Performed By: #### 2 4321-2 ####[facility] [id number] [facility] [place] [address] [place] Calcium [Mass/Vol] 9.4 mg/dL Normal 8.5-10.2 [facility] Comment on above: Order Comment: Speci men Type: BLOOD SPECIMENOrdering Facility: [facility] Address: [address] [place] [address] Performed By: #### 2 4321-2 ####[facility] [id number] [place] [address] [place] Chloride [Moles/Vol] 107 mmol/L Normal 98-107 [facility] Comment on above: Order Comment: Speci men Type: BLOOD SPECIMENOrdering Facility: [facility] Address: [address] [place] [address] Performed By: #### 2 4321-2 ####[facility] [id number] [place] [address] [place] CO2 [Moles/Vol] 25 mmol/L Normal 22-30 [facility] Comment on above: Order Comment: Speci men Type: BLOOD SPECIMENOrdering Facility: [facility] Address: [address] [place] [address] Performed By: #### 2 4321-2 ####[facility] [id number] [place] [address] [place] Creatinine [Mass/Vol] 0.90 mg/dL Normal 0.73-1.22 [facility] Comment on above: Order Comment: Speci men Type: BLOOD SPECIMENOrdering Facility: [facility] Address: [address] [place] [address] Performed By: #### 2 4321-2 ####[facility] [id number] [place] [address] [place] Creatinine and Glomerular filtration rate.predicted panel (S/P/Bld) 107 mL/min/1.73m??? Normal >=60 [facility] Comment on above: Order Comment: Calderon sherman Type: BLOOD SPECIMENOrdering Facility: [facility] Address: [address] [place] [address] Result Comment: Velia mated Glomerular Filtration Rate [...] actual GFR. Performed By: #### 2 4321-2 ####[facility] [id number] [place] [address] [place] Glucose [Mass/Vol] 94 mg/dL Normal 74-99 [facility] Comment on above: Order Comment: Calderon sherman Type: BLOOD SPECIMENOrdering Facility: [facility] Address: [address] [place] [address] Result Comment: The Canadian Diabetes Association (ADA) provides guidance for cutoff [...] Standards of Medical Care in Diabetes 2016, Canadian Diabetes Association. Diabetes Care. 2016.39(Suppl 1). Performed By: #### 2 4321-2 ####[facility] [id number] [place] [address] [place] Potassium [Moles/Vol] 4.1 mmol/L Normal 3.7-5.1 [facility] Comment on above: Order Comment: Speci men Type: BLOOD SPECIMENOrdering Facility: [facility] Address: [address] [place] [address] Performed By: #### 2 4321-2 ####[facility] [id number] [place] [address] [place] Sodium [Moles/Vol] 143 mmol/L Normal 136-144 [facility] Comment on above: Order Comment: Speci men Type: BLOOD SPECIMENOrdering Facility: [facility] Address: [address] [place] [address] Performed By: #### 2 4321-2 ####[facility] [id number] [place] [address] [place] Urea nitrogen [Mass/Vol] 12 mg/dL Normal 9-24 [facility] Comment on above: Order Comment: Speci men Type: BLOOD SPECIMENOrdering Facility: [facility] Address: [address] [place] [address] Performed By: #### 2 4321-2 ####[facility] [id number] [place] [id number] [place] XR Chest PA and Lateralon IMPRESSION: No acute radiographic abnormality. Molder Operator: PSCAlcides Transcribe Date/Time: Feb 28 2023 11:17A Dictated by : LILY BANSAL MD This examination was interpreted and the report reviewed and electronically signed by: LILY BANSAL MD on Feb 28 2023 11:19AM [facility] DIVISION OF RADIOLOGY * * *Final [...] imaged IVC filter. DIVISION OF RADIOLOGY Provider, [facility] - 02/28/2023 * * *Final Report* [...] filter. IMPRESSION IMPRESSION: No acute radiographic abnormality. Molder Operator: CARLA Transcribe Date/Time: Feb 28 2023 11:17A Dictated by : LILY BANSAL MD This examination was interpreted and the report reviewed and electronically signed by: LILY BANSAL MD on Feb 28 2023 11:19AM EST [facility] Radiology Study observation (narrative) [facility] XR Chest PA and LateralOrder ed By: Ccf Provider on 02-28-2023 [facility] CBC panel Auto (Bld)on 03-13 Erythrocyte distribution width (RBC) [Ratio] 12.3 % 11.5 - 15.0 % [facility] Hematocrit (Bld) [Volume fraction] 46.3 % 39.0 - 51.0 % [facility] Hemoglobin (Bld) [Mass/Vol] 16.2 g/dL 13.0 - 17.0 g/dL [facility] MCH (RBC) [Entitic mass] 31.1 pg 26.0 - 34.0 pg [facility] MCHC (RBC) [Mass/Vol] 35.0 g/dL 30.5 - 36.0 g/dL [facility] MCV (RBC) [Entitic vol] 88.9 fL 80.0 - 100.0 fL [facility] Nucleated RBC (Bld) [#/Vol] <0.01 k/uL [facility] Platelet mean volume (Bld) [Entitic vol] 9.0 fL 9.0 - 12.7 fL [facility] Platelets (Bld) [#/Vol] 229 10*3/uL 150 - 400 k/uL [facility] RBC (Bld) [#/Vol] 5.21 10*6/uL 4.20 - 6.00 m/uL [facility] WBC (Bld) [#/Vol] 4.66 10*3/uL 3.70 - 11.00 k/uL [facility] Vital Signs Date Time Vital Sign Value Performing Clinician Facility 10-06-2024 13:28-0400 Body temperature 97.2 [degF] Dr. Robin Enamorado MD Work Phone: 1(210)[phone] [place] [address] 10-06-2024 13:28-0400 Diastolic blood pressure 80 mm[Hg] Dr. Robin Enamorado MD Work Phone: 4(990)[phone] [place] [address] 10-06-2024 13:28-0400 Heart rate 69 /min Dr. Robin Enamorado MD Work Phone: 5(414)[phone] [place] [address] 10-06-2024 13:28-0400 Respiratory rate 18 /min Dr. Robin Enamorado MD Work Phone: 9(668)[phone] [place] [address] 10-06-2024 13:28-0400 SaO2% (BldA) [Mass fraction] 99 % Dr. Robin Enamorado MD Work Phone: 4(260)[phone] [place] [address] 10-06-2024 13:28-0400 Systolic blood pressure 124 mm[Hg] Dr. Robin Enamorado MD Work Phone: 4(123)[phone] [place] [address] 10-06-2024 12:21-0400 Body mass index (BMI) [Ratio] 23.8 kg/m2 Dr. Robin Enamorado MD Work Phone: [facility] 10-06-2024 12:21-0400 Body weight [address] Robni Enamorado MD Work Phone: [facility] 10-06-2024 11:31-0400 Body height 187.[address] Robin Enamorado MD Work Phone: [facility] 09-23-2024 11:32-0400 Diastolic blood pressure 71 mm[Hg] Frandy Yip MD Work Phone: [facility] 09-23-2024 11:32-0400 Heart rate 69 /min Frandy Yip MD Work Phone: [facility] 09-23-2024 11:32-0400 Respiratory rate 18 /min Frandy Yip MD Work Phone: [facility] 09-23-2024 11:32-0400 Systolic blood pressure 120 mm[Hg] Frandy Yip MD Work Phone: [facility] 09-23-2024 11:28-0400 SaO2% (BldA) [Mass fraction] 98 % Frandy Yip MD Work Phone: [facility] 09-02-2024 11:00-0400 Body mass index (BMI) [Ratio] 23.75 kg/m2 Ainsley Wurstle PA-C Work Phone: [facility] 09-02-2024 11:00-0400 Body temperature 97.59 [degF] Ainsley Wurstle PA-C Work Phone: [facility] 09-02-2024 11:00-0400 Body weight 83.92 kg Ainsley Wurstle PA-C Work Phone: [facility] 09-02-2024 11:00-0400 Diastolic blood pressure 71 mm[Hg] Ainsley Wurstle PA-C Work Phone: [facility] 09-02-2024 11:00-0400 Heart rate 76 /min Ainsley Wurstle PA-C Work Phone: [facility] 09-02-2024 11:00-0400 SaO2% (BldA) [Mass fraction] 97 % Ainsley Alfonso PA-C Work Phone: [facility] 09-02-2024 11:00-0400 Systolic blood pressure 112 mm[Hg] Ainsley Alfonso PA-C Work Phone: [facility] 07-30-2024 11:25-0400 Diastolic blood pressure 96 mm[Hg] Chely Verma PA-C Work Phone: [facility] 07-30-2024 11:25-0400 Heart rate 77 /min Chely Verma PA-C Work Phone: [facility] 07-30-2024 11:25-0400 SaO2% (BldA) [Mass fraction] 98 % Chely Verma PA-C Work Phone: [facility] 07-30-2024 11:25-0400 Systolic blood pressure 145 mm[Hg] Chely Verma PA-C Work Phone: [facility] 07-14-2024 11:06-0400 Diastolic blood pressure 82 mm[Hg] Chris Cleveland MD Work Phone: [facility] 07-14-2024 11:06-0400 Heart rate 69 /min Chris Cleveland MD Work Phone: [facility] 07-14-2024 11:06-0400 Respiratory rate 18 /min Chris Cleveladn MD Work Phone: [facility] 07-14-2024 11:06-0400 Systolic blood pressure 116 mm[Hg] Chris Cleveland MD Work Phone: [facility] 07-14-2024 10:23-0400 Body temperature 97.2 [degF] Chris Cleveland MD Work Phone: [facility] 07-14-2024 10:23-0400 SaO2% (BldA) [Mass fraction] 96 % Chris Cleveland MD Work Phone: [facility] 04-08-2024 07:59-0500 Diastolic blood pressure 60 mm[Hg] Robin Enamorado MD Work Phone: [facility] 04-08-2024 07:59-0500 Heart rate 83 /min Robin Enamorado MD Work Phone: [facility] 04-08-2024 07:59-0500 SaO2% (BldA) [Mass fraction] 99 % Robin Enamorado MD Work Phone: [facility] 04-08-2024 07:59-0500 Systolic blood pressure 100 mm[Hg] Robin Enamorado MD Work Phone: [facility] 04-01-2024 09:24-0500 Body height 188 cm Chris Cleveland MD Work Phone: [facility] 04-01-2024 09:24-0500 Body mass index (BMI) [Ratio] 23.75 kg/m2 Chris Cleveland MD Work Phone: [facility] 04-01-2024 09:24-0500 Body weight 83.92 kg Chris Cleveland MD Work Phone: [facility] 04-01-2024 09:24-0500 Diastolic blood pressure 71 mm[Hg] Chris Cleveland MD Work Phone: [facility] 04-01-2024 09:24-0500 Heart rate 73 /min Chris Cleveland MD Work Phone: [facility] 04-01-2024 09:24-0500 Respiratory rate 16 /min Chris Cleveland MD Work Phone: [facility] 04-01-2024 09:24-0500 SaO2% (BldA) [Mass fraction] 98 % Chris Cleveland MD Work Phone: [facility] 04-01-2024 09:24-0500 Systolic blood pressure 110 mm[Hg] Chris Cleveland MD Work Phone: [facility] 01-09-2024 09:29-0500 Body mass index (BMI) [Ratio] 23.75 kg/m2 Chely ALFONSO-C Work Phone: [facility] 01-09-2024 09:29-0500 Body weight 83.92 kg Chely Verma PA-C Work Phone: [facility] 01-09-2024 09:29-0500 Diastolic blood pressure 81 mm[Hg] Chely ALFONSO-C Work Phone: [facility] 01-09-2024 09:29-0500 Heart rate 70 /min Chely ALFONSO-C Work Phone: [facility] 01-09-2024 09:29-0500 Respiratory rate 16 /min Chely ALFONSO-C Work Phone: [facility] 01-09-2024 09:29-0500 SaO2% (BldA) [Mass fraction] 97 % Chely ALFONSO-C Work Phone: [facility] 01-09-2024 09:29-0500 Systolic blood pressure 119 mm[Hg] Chely ALFONSO-C Work Phone: [facility] 10-17-2023 10:16-0400 Diastolic blood pressure 83 mm[Hg] Chris Cleveland MD Work Phone: [facility] 10-17-2023 10:16-0400 Heart rate 65 /min Chris Cleveland MD Work Phone: [facility] 10-17-2023 10:16-0400 Respiratory rate 18 /min Chris Cleveland MD Work Phone: [facility] 10-17-2023 10:16-0400 Systolic blood pressure 133 mm[Hg] Chris Cleveland MD Work Phone: [facility] 10-17-2023 09:51-0400 Body temperature 97.39 [degF] Chris Cleveland MD Work Phone: [facility] 10-03-2023 08:49-0400 Body height 188 cm Chely ALFONSO-C Work Phone: [facility] 10-03-2023 08:49-0400 Body mass index (BMI) [Ratio] 23.75 kg/m2 Chely ALFONSO-C Work Phone: [facility] 10-03-2023 08:49-0400 Body weight 83.92 kg Chely Verma PA-C Work Phone: [facility] 10-03-2023 08:49-0400 Diastolic blood pressure 74 mm[Hg] Chely ALFONSO-C Work Phone: [facility] 10-03-2023 08:49-0400 Heart rate 82 /min Chely ALFONSO-C Work Phone: [facility] 10-03-2023 08:49-0400 Respiratory rate 18 /min Chely ALFONSO-C Work Phone: [facility] 10-03-2023 08:49-0400 SaO2% (BldA) [Mass fraction] 97 % Chely ALFONSO-C Work Phone: [facility] 10-03-2023 08:49-0400 Systolic blood pressure 116 mm[Hg] Chely ALFONSO-C Work Phone: [facility] 10-02-2023 08:03-0400 Diastolic blood pressure 72 mm[Hg] Robin Enamorado MD Work Phone: [facility] 10-02-2023 08:03-0400 Heart rate 94 /min Robin Enamorado MD Work Phone: [facility] 10-02-2023 08:03-0400 Respiratory rate 16 /min Robin Enamorado MD Work Phone: [facility] 10-02-2023 08:03-0400 SaO2% (BldA) [Mass fraction] 95 % Robin Enamorado MD Work Phone: [facility] 10-02-2023 08:03-0400 Systolic blood pressure 110 mm[Hg] Robin Enamorado MD Work Phone: [facility] 08-08-2023 09:03-0400 Body height 188 cm Chely Verma PA-C Work Phone: [facility] 08-08-2023 09:03-0400 Body mass index (BMI) [Ratio] 23.75 kg/m2 Chely Verma PA-C Work Phone: [facility] 08-08-2023 09:03-0400 Body temperature 97.9 [degF] Chely Verma PA-C Work Phone: [facility] 08-08-2023 09:03-0400 Body weight 83.92 kg Chely Verma PA-C Work Phone: [facility] 08-08-2023 09:03-0400 Diastolic blood pressure 86 mm[Hg] Chely ALFONSO-C Work Phone: [facility] 08-08-2023 09:03-0400 Heart rate 85 /min Chely ALFONSO-C Work Phone: [facility] 08-08-2023 09:03-0400 Respiratory rate 20 /min Chely Verma PA-C Work Phone: [facility] 08-08-2023 09:03-0400 SaO2% (BldA) [Mass fraction] 98 % Chely ALFONSO-C Work Phone: [facility] 08-08-2023 09:03-0400 Systolic blood pressure 107 mm[Hg] Chely Verma PA-C Work Phone: [facility] 06-27-2023 09:06-0400 Body height 188 cm Chely Verma PA-C Work Phone: [facility] 06-27-2023 09:06-0400 Body mass index (BMI) [Ratio] 23.75 kg/m2 Chely Verma PA-C Work Phone: [facility] 06-27-2023 09:06-0400 Body temperature 97.7 [degF] Chely Verma PA-C Work Phone: [facility] 06-27-2023 09:06-0400 Body weight 83.92 kg Chely Verma PA-C Work Phone: [facility] 06-27-2023 09:06-0400 Diastolic blood pressure 69 mm[Hg] Chely Verma PA-C Work Phone: [facility] 06-27-2023 09:06-0400 Heart rate 80 /min Chely Verma PA-C Work Phone: [facility] 06-27-2023 09:06-0400 Respiratory rate 20 /min Chely Verma PA-C Work Phone: [facility] 06-27-2023 09:06-0400 SaO2% (BldA) [Mass fraction] 98 % Chely Verma PA-C Work Phone: [facility] 06-27-2023 09:06-0400 Systolic blood pressure 107 mm[Hg] Chely Verma PA-C Work Phone: [facility] 05-16-2023 09:10-0400 Body temperature 97.39 [degF] Chely Verma PA-C Work Phone: [facility] 05-16-2023 09:10-0400 Diastolic blood pressure 76 mm[Hg] Chely Verma PA-C Work Phone: [facility] 05-16-2023 09:10-0400 Heart rate 89 /min Chely Verma PA-C Work Phone: [facility] 05-16-2023 09:10-0400 Respiratory rate 18 /min Chely Verma PA-C Work Phone: [facility] 05-16-2023 09:10-0400 SaO2% (BldA) [Mass fraction] 98 % Chely Verma PA-C Work Phone: [facility] 05-16-2023 09:10-0400 Systolic blood pressure 124 mm[Hg] Chely Verma PA-C Work Phone: [facility] 04-02-2023 08:04-0500 Diastolic blood pressure 72 mm[Hg] Robin Enamorado MD Work Phone: [facility] 04-02-2023 08:04-0500 Heart rate 90 /min Robin Enamorado MD Work Phone: [facility] 04-02-2023 08:04-0500 Respiratory rate 16 /min Robin Enamorado MD Work Phone: [facility] 04-02-2023 08:04-0500 Systolic blood pressure 122 mm[Hg] Robin Enamorado MD Work Phone: [facility] 11-22-2022 08:57-0400 Body temperature 97.9 [degF] Chely Verma PA-C Work Phone: [facility] 11-22-2022 08:57-0400 Diastolic blood pressure 77 mm[Hg] Chely Verma PA-C Work Phone: [facility] 11-22-2022 08:57-0400 Heart rate 85 /min Chely Verma PA-C Work Phone: [facility] 11-22-2022 08:57-0400 Respiratory rate 18 /min Chely Verma PA-C Work Phone: [facility] 11-22-2022 08:57-0400 SaO2% (BldA) [Mass fraction] 99 % Chely Verma PA-C Work Phone: [facility] 11-22-2022 08:57-0400 Systolic blood pressure 129 mm[Hg] Chely Verma PA-C Work Phone: [facility] 10-11-2022 09:00-0400 Body temperature 97 [degF] Chely Verma PA-C Work Phone: [facility] 10-11-2022 09:00-0400 Diastolic blood pressure 67 mm[Hg] Chely Verma PA-C Work Phone: [facility] 10-11-2022 09:00-0400 Heart rate 78 /min Chely Verma PA-C Work Phone: [facility] 10-11-2022 09:00-0400 Respiratory rate 18 /min Chely Verma PA-C Work Phone: [facility] 10-11-2022 09:00-0400 SaO2% (BldA) [Mass fraction] 96 % Chely Verma PA-C Work Phone: [facility] 10-11-2022 09:00-0400 Systolic blood pressure 113 mm[Hg] Chely Verma PA-C Work Phone: [facility] 04-26-2022 08:58-0500 Body height 157.5 cm Chely Verma PA-C Work Phone: [facility] 04-26-2022 08:58-0500 Body temperature 98.49 [degF] Chely Verma PA-C Work Phone: [facility] 04-26-2022 08:58-0500 Body weight 81.65 kg Chely Verma PA-C Work Phone: [facility] 04-26-2022 08:58-0500 Diastolic blood pressure 67 mm[Hg] Chely Verma PA-C Work Phone: [facility] 04-26-2022 08:58-0500 Heart rate 81 /min Chely Verma PA-C Work Phone: [facility] 04-26-2022 08:58-0500 Respiratory rate 20 /min Chely Verma PA-C Work Phone: [facility] 04-26-2022 08:58-0500 SaO2% (BldA) [Mass fraction] 96 % Chely Verma PA-C Work Phone: [facility] 04-26-2022 08:58-0500 Systolic blood pressure 105 mm[Hg] Chely Verma PA-C Work Phone: [facility] 04-24-2022 14:58-0500 Body height 188 cm Jose Lewis MD Work Phone: [facility] 04-24-2022 14:58-0500 Body weight 81.65 kg Jose Lewis MD Work Phone: [facility] 04-24-2022 14:58-0500 Diastolic blood pressure 80 mm[Hg] Jose Lewis MD Work Phone: [facility] 04-24-2022 14:58-0500 Heart rate 94 /min Jose Lewis MD Work Phone: [facility] 04-24-2022 14:58-0500 Respiratory rate 18 /min Jose Lewis MD Work Phone: [facility] 04-24-2022 14:58-0500 SaO2% (BldA) [Mass fraction] 95 % Jose Lewis MD Work Phone: [facility] 04-24-2022 14:58-0500 Systolic blood pressure 121 mm[Hg] Jose Lewis MD Work Phone: [facility] 03-15-2022 09:16-0500 Body height 185.4 cm Chely Verma PA-C Work Phone: [facility] 03-15-2022 09:16-0500 Body temperature 97.7 [degF] Chely Verma PA-C Work Phone: [facility] 03-15-2022 09:16-0500 Body weight 82.56 kg Chely Verma PA-C Work Phone: [facility] 03-15-2022 09:16-0500 Diastolic blood pressure 73 mm[Hg] Chely Verma PA-C Work Phone: [facility] 03-15-2022 09:16-0500 Heart rate 87 /min Chely Verma PA-C Work Phone: [facility] 03-15-2022 09:16-0500 Respiratory rate 20 /min Chely Verma PA-C Work Phone: [facility] 03-15-2022 09:16-0500 SaO2% (BldA) [Mass fraction] 98 % Chely Verma PA-C Work Phone: [facility] 03-15-2022 09:16-0500 Systolic blood pressure 106 mm[Hg] Chely Verma PA-C Work Phone: [facility] 03-13-2022 12:02-0500 Body temperature 97.7 [degF] Robin Enamorado MD Work Phone: [facility] 03-13-2022 12:02-0500 Diastolic blood pressure 62 mm[Hg] Robin Enamorado MD Work Phone: [facility] 03-13-2022 12:02-0500 Heart rate 80 /min Robin Enamorado MD Work Phone: [facility] 03-13-2022 12:02-0500 Respiratory rate 18 /min Robin Enamorado MD Work Phone: [facility] 03-13-2022 12:02-0500 SaO2% (BldA) [Mass fraction] 96 % Robin Enamorado MD Work Phone: [facility] 03-13-2022 12:02-0500 Systolic blood pressure 118 mm[Hg] Robin Enamorado MD Work Phone: [facility] 01-29-2022 08:55-0500 Body height 188 cm Ulises Pena MD Work Phone: [facility] 01-29-2022 08:55-0500 Body temperature 97.59 [degF] Ulises Pena MD Work Phone: [facility] 01-29-2022 08:55-0500 Body weight 81.65 kg Ulises Pena MD Work Phone: [facility] 01-29-2022 08:55-0500 Diastolic blood pressure 70 mm[Hg] Ulises Pena MD Work Phone: [facility] 01-29-2022 08:55-0500 Heart rate 86 /min Ulises Pena MD Work Phone: [facility] 01-29-2022 08:55-0500 Respiratory rate 18 /min Ulises Pena MD Work Phone: [facility] 01-29-2022 08:55-0500 SaO2% (BldA) [Mass fraction] 96 % Ulises Pena MD Work Phone: [facility] 01-29-2022 08:55-0500 Systolic blood pressure 109 mm[Hg] Ulises Pena MD Work Phone: [facility] 10-12-2021 09:14-0400 Body height 188 cm Chely Verma PA-C Work Phone: [facility] 10-12-2021 09:14-0400 Body temperature 98.4 [degF] Chely Verma PA-C Work Phone: [facility] 10-12-2021 09:14-0400 Body weight 81.65 kg Chely Verma PA-C Work Phone: [facility] 10-12-2021 09:14-0400 Diastolic blood pressure 77 mm[Hg] Chely Verma PA-C Work Phone: [facility] 10-12-2021 09:14-0400 Heart rate 76 /min Chely Verma PA-C Work Phone: [facility] 10-12-2021 09:14-0400 Respiratory rate 20 /min Chely Verma PA-C Work Phone: [facility] 10-12-2021 09:14-0400 SaO2% (BldA) [Mass fraction] 98 % Chely Verma PA-C Work Phone: [facility] 10-12-2021 09:14-0400 Systolic blood pressure 122 mm[Hg] Chely Verma PA-C Work Phone: [facility] 08-21-2021 08:32-0400 Diastolic blood pressure 60 mm[Hg] Tiffanie Anthony APRN.[employer] Work Phone: [facility] 08-21-2021 08:32-0400 Heart rate 80 /min Tiffanie Anthony SPECIAL DISTRIBUTION CLERK.[employer] Work Phone: [facility] 08-21-2021 08:32-0400 Respiratory rate 16 /min Tiffanie Anthony SPECIAL DISTRIBUTION CLERK.[employer] Work Phone: [facility] 08-21-2021 08:32-0400 Systolic blood pressure 104 mm[Hg] Tiffanie Anthony SPECIAL DISTRIBUTION CLERK.[employer] Work Phone: [facility] Encounters Encounter Date Encounter Type Care Provider Facility Start: 10-06-2024 End: 10-06-2024 Emergency department patient visit Dr. Robin Enamorado MD Work Phone: -Emergency Department Work Phone: Start: 10-02-2024 End: 10-02-[address] Andres Olivarez MD -[facility] Start: 10-02-2024 End: 10-02-[address] Robin Enamorado MD Work Phone: -[facility] Start: 09-23-2024 ambulatory FRANDY Rojas y:[id number] Start: 09-23-2024 End: 09-23-2024 Subsequent hospital visit by physician Frandy Yip MD Work Phone: [facility] Comment on above: Spinal stenosis of [...] Ainsley Alfonso PA-C Work Phone: [facility] Comment on above: Weakness of right lo wer extremity (Primary Dx) Start: 09-11-2024 End: 09-14-2024 Follow-up encounter Ainsley Alfonso PA-C Work Phone: [facility] Start: 09-11-2024 ambulatory AINSLEY ALFONSO Facili ty:[facility] Start: 09-11-2024 End: 09-11-2024 Subsequent hospital visit by physician [employer] [facility] Wstr (I-Stat/1.5t) Work Phone: Radiology Comment on above: Spinal stenosis of c ervical region [M48.02] Start: 09-02-2024 End: 09-02-2024 Office outpatient visit 40 minutes Ainsley Alfonso PA-C Work Phone: Rehab Medicine Comment on above: Chronic incomplete q uadriplegia (HCC) (Primary Dx); Brown-Sequard syndrome (HCC); Annular disc tear; Spinal stenosis of cervical region; Dysuria Start: 09-02-2024 End: 09-02-2024 ambulatory AINSLEY ALFONSO Facility:[facility] Start: 08-25-2024 End: 09-18-2024 Telephone encounter [...] Start: 07-30-2024 End: 07-30-2024 ambulatory CHELY VERMA Facility:[id number] Start: 07-29-2024 End: 07-29-2024 Telephone encounter Chely Verma PA-C Work Phone: Pain Management Comment on above: Results (MRI ) Start: 07-29-2024 ambulatory CHELY VERMA Facility: [facility] Start: 07-29-2024 End: 07-29-2024 Subsequent hospital visit by physician [employer] [facility] Wstr (I-Stat/1.5t) Work Phone: Radiology Comment on above: Spinal stenosis of l umbar region, unspecified whether neurogenic claudication present [M48.061] Start: 07-17-2024 End: 07-20-2024 ambulatory Chris Cleveland MD Work Phone: Pain Management Comment on above: Back/ Leg pain Start: 07-14-2024 End: 07-14-2024 Telephone encounter [facility] Dac[facility] Start: 07-14-2024 ambulatory CHRIS Montoya ty:[id number] Start: 07-14-2024 End: 07-14-2024 Subsequent hospital visit [...] Start: 06-25-2024 End: 06-25-2024 ambulatory CHELY VERMA Facility:[id number] Start: 06-23-2024 End: 06-23-2024 ambulatory CIRILO GARCIA Facility:[facility] Start: 06-23-2024 End: 06-23-2024 Patient encounter procedure Cirilo Acostaonald PT Work Phone: [facility] Comment on above: Chronic incomplete [...] Robin Enamorado MD Work Phone: Internal Medicine [place] Comment on above: Paperwork Start: 04-21-2024 End: [...] Start: 04-08-2024 End: 04-08-2024 ambulatory ROBIN ENAMORADO Facility:[facility] Start: 04-08-2024 End: 04-08-2024 Office outpatient visit 25 minutes Robin Enamorado MD Work Phone: Internal Medicine [place] Comment on above: Acquired hypothyroid ism (Primary Dx); Palpitations; Myofascial pain syndrome; Brown-Sequard syndrome (HCC); Premature atrial contractions; Bradycardia Start: 04-06-2024 End: 04-06-2024 ambulatory ROBIN ENAMORADO Facility:[facility] Start: 04-01-2024 End: 04-01-2024 Telephone encounter Chris Cleveland MD Work Phone: MR PAIN MANAGEMENT Comment on above: Scheduling a procedu re Start: 04-01-2024 End: 04-01-2024 Office outpatient visit 25 minutes Chris Cleveland MD Work Phone: Pain Management Comment on above: Brown-Sequard syndro me (HCC) (Primary Dx); Degeneration of intervertebral disc of lumbar region with discogenic back pain and lower extremity pain; Other rn long term care (current) drug therapy; Chronic pain syndrome; Myofascial pain syndrome; Chronic pain of left knee; Chronic pain of right knee Start: 04-01-2024 End: 04-01-2024 ambulatory CHRIS CLEVELAND Facility:[id number] Start: 03-03-2024 End: 03-17-2024 Telephone encounter Robin Enamorado MD Work Phone: Internal Medicine [place] Comment on above: Results (Holter/even t monitor [...] Start: 01-09-2024 End: 01-10-2024 ambulatory CHELY VERMA Facility:[id number] Start: 01-03-2024 ambulatory Doctor [facility] Start: 01-02-2024 ambulatory Doctor [facility] [place] Start: 12-30-2023 ambulatory Doctor [facility] Start: 12-27-2023 ambulatory Gallito Chavez [facility] Chavez [facility] Start: 12-19-2023 ambulatory Doctor Corporate [facility] [place] Start: 12-05-2023 End: 12-05-2023 Refill Chely Verma PA-C Work Phone: Pain Management Comment on above: Refill Request Refill meds. Start: 10-28-2023 ambulatory ROBIN ENAMORADO Facilit y:[facility] Start: 10-28-2023 End: 10-28-2023 Subsequent hospital [...] intervertebral disc (Primary Dx); Lumbar spondylosis; Other chcf (current) drug therapy; Brown-Sequard syndrome (HCC); Chronic incomplete quadriplegia (HCC); Lesion of left ulnar nerve; Myofascial pain syndrome Start: 10-03-2023 End: 10-03-2023 ambulatory CHELY VERMA Facility:[id number] Start: 10-02-2023 End: 10-02-2023 Subsequent hospital visit by physician Loreto [facility] Priyanka Work Phone: Radiology Comment on above: Chronic pain of righ t knee [M25.561, G89.29] Start: 10-02-2023 End: 10-02-2023 ambulatory ROBIN ENAMORADO Facility:[facility] Start: 10-02-2023 End: 10-02-2023 Office outpatient visit 25 minutes Robin Enamorado MD Work Phone: Internal Medicine [place] Comment on above: Cervical radiculopat hy (Primary Dx); Intermittent palpitations; Acquired hypothyroidism; ANTONETTE on CPAP; Encounter for long-term current use of medication; Screening for depression; Encounter for screening examination for other mental health and behavioral disorders Start: 09-30-2023 End: 09-30-2023 ambulatory ROBIN ENAMORADO Facility:[facility] Start: 08-08-2023 End: 08-08-2023 Patient encounter [...] End: 02-28-2023 Subsequent hospital visit by physician [facility] Priyanka Work Phone: Radiology Comment on [...] ulnar nerve; Opioid dependence, uncomplicated (HCC); Other rn long term care (current) drug therapy Start: 06-22-2022 Refill Robin rm MD Work Phone: Internal Medicine [place] Comment on above: Refill Request Start: 04-26-2022 End: 04-26-2022 Patient encounter procedure Chely Verma PA-C Work Phone: Pain Management Comment on above: Chronic midline low back pain without sciatica (Primary Dx); Brown-Sequard syndrome (HCC); Chronic incomplete quadriplegia (HCC); Lesion of left ulnar nerve; Other chcf (current) drug therapy Start: 04-24-2022 End: 04-24-2022 [...] encounter procedure Vandana Taylor PA-C Work Phone: [facility] Comment on above: Facial laceration, i nitial encounter (Primary Dx) Start: 03-29-2022 E-mail encounter fro m caregiver [facility] Provider [facility] Start: 03-29-2022 Patient encounter procedure [facility] [...] Robin langston MD Work Phone: Internal Medicine [place] Comment on above: PAP compliance repor t [...] midline low back pain without sciatica; Other chcf (current) drug therapy Start: 09-14-2021 Refill Ulises Acosta MD Work Phone: Pain Management Comment on above: Refill Request Start: 08-21-2021 End: 08-21-2021 Patient encounter procedure Tiffanie Anthony APRN.[employer]OOKIE MAKER Work Phone: Internal Medicine [place] Comment on [...] Robin rm MD Work Phone: Internal Medicine [place] Comment on above: Refill Request Start: 07-06-2021 End: 07-06-2021 Subsequent hospital visit by physician Chely Verma PA-C Work Phone: IF ARMANDO ACKERMAN Comment on above: FOLLOW UP Start: 06-07-2021 ambulatory Tiffanie RAJANFORTUNE COOKIE MAKER Work Phone: Internal Medicine [place] Comment on above: Scripts Start: 05-25-2021 End: 05-25-2021 Subsequent hospital visit by physician Chely Verma PA-C Work Phone: IF [facility]ANDO ACKERMAN Comment on above: FOLLOW UP Start: 10-01-2017 End: 10-01-2017 Patient encounter [facility] Start: 03-12-2017 End: 03-22-2017 Patient encounter TIFFANIE (FORTUNE COOKIE MAKER) [facility] Procedures Date Procedure Procedure Detail Performing [...] Work Phone: Start: 07-14-2024 End: 07-14-2024 Injection single/hanging flags decorator trigger point 3/> muscles Chris Cleveland MD Work Phone: Start: 01-02-2024 Medical Records Charge Doctor Corporate Start: 10-17-2023 End: 10-17-2023 Injection single/hanging flags decorator trigger point 3/> muscles Chris Cleveland MD [...] exam ches t 2 views Raine Harley SPECIAL DISTRIBUTION CLERK.SENIOR TABLEAU DEVELOPER Work Phone: Start: 03-13-2022 INFLUENZA VACCINE QUADRIVALENT 6 MO - 64 YRS IM Robin Enamorado MD Work Phone: Start: 03-13-2022 Lipid 1996 panel - S james or Plasma Chely Verma PA-C Work Phone: Start: 10-04-2020 Adult depression scr eening assessment Chely Verma PA-C Work Phone: Plan of Treatment Date Care Activity Detail Author Start: 03-29-2032 Urine microalbumin profile [facility] Start: 04-06-2027 Diabetes Screening Diabetes Screening [facility] Start: 03-13-2027 Lipid 1996 panel - Serum or Plasma Lipid Screening [facility] Start: 03-13-2027 Lipid panel Lipid Screening [facility] Start: 03-13-2027 LIPID SCREEN LIPID SCREEN [facility] Start: 09-29-2026 Diabetes Screening Diabetes Screening [facility] Start: 04-01-2026 Diabetes Screening Diabetes Screening [facility] Start: 09-22-2025 End: 09-22-2025 Patient encounter procedure 09/22/2025 9:15 AM EDT Office Visit Urology [address] [address] Pablo Urias MD [address] [place] [address] One year follow up Urology Comment on above: One year follow up Start: 09-21-2025 End: 10-21-2025 US Kidney - bilateral and Urinary bladder US KIDNEY/BLADDER Radiology Routine Neurogenic bladder Expected: 09/21/2025 (Approximate), Expires: 10/21/2025 [facility] Comment on above: Expected: 09/21/2025 (Approximate), Expi res: 10/21/2025 Start: 04-14-2025 End: 04-14-2025 Patient encounter procedure 04/14/2025 8:40 AM EST Office Visit Internal Medicine [place] [address] [place] [address] Robin Enamorado MD [address] [place] [address] 6 month follow up Internal Medicine [place] Comment on above: 6 month follow up Start: 04-08-2025 Annual PCP Team Chronic Disease Visit Annual PCP Team Chronic Disease Visit [facility] Start: 03-13-2025 DIABETES SCREEN DIABETES SCREEN [facility] Start: 03-13-2025 Diabetes Screening Diabetes Screening [facility] Start: 12-14-2024 End: 12-14-2024 Patient encounter procedure 12/14/2024 9:00 AM EDT Office Visit Cardiology [address] [place] [address] Krunal Mcneill MD [address] [facility], [address] [place] [address] Palpitations [R00.2] Cardiology Comment on above: Palpitations [R00.2] Start: 11-02-2024 Influenza vaccination [facility] Start: 10-30-2024 End: 10-30-2024 Patient encounter procedure 10/30/2024 10:30 AM EDT Office Visit Rehab Medicine [address] [place] [id number] Jose Lewis MD [address] [place], [place] [id number] F/U Rehab Medicine Comment on above: F/U Start: 10-29-2024 End: 10-29-2024 Patient encounter procedure Pain Management Comment on above: Follow Up Start: 10-14-2024 End: 10-14-2024 Patient encounter procedure 10/14/2024 10:45 AM EDT Office Visit [facility] [place] [address] [place] [phone] Fanny Boykin MD [address] [address] per email from [facility] Comment on above: per email from [facility] Start: 10-13-2024 End: 10-13-2024 Patient encounter procedure 10/13/2024 8:00 AM EDT Office Visit Internal Medicine [place] [address] [place] [address] Robin Enamorado MD [address] [place] [address] 6 month follow up Internal Medicine [place] Comment on above: 6 month follow up Start: 10-09-2024 End: 10-09-2024 Patient encounter procedure 10/09/2024 9:00 AM EDT Office Visit Rehab Medicine [address] [place] [phone] Jose Lewis MD [address] [place] [address] F/U Rehab Medicine Comment on above: F/U Start: 10-06-2024 [facility] Start: 10-02-2024 X-ray of lumbosacral spine L/S Spine Min 4 Views [facility] Start: 10-02-2024 XR Spine Lumbar and Sacrum GE 4 Views [facility] Start: 10-01-2024 Annual PCP Team Chronic Disease Visit Annual PCP Team Chronic Disease Visit [facility] Start: 10-01-2024 Anxiety Screening Anxiety Screening [facility] Start: 10-01-2024 Depression Screening Depression Screening [facility] Start: 09-24-2024 End: 09-24-2024 Patient encounter procedure 09/24/2024 9:00 AM EDT Office Visit Pain Management [address] [place] [address] Chely Verma PA-C [address] [place] [address] Follow Up Pain Management Comment on above: Follow Up Start: 09-23-2024 End: 09-23-2024 Admission to same day surgery center [facility] Comment on above: SACRAL(CAUDAL) EPIDURAL BLOCK [...] Routine Neurogenic bladder Expected: 09/21/2024, Expires: 12/21/2024 [facility] Work Phone: Comment on above: Expected: 09/21/2024, Expires: Start: 09-21-2024 End: 09-21-2024 Patient encounter procedure 09/21/2024 9:00 AM EDT Office Visit Urology [address] [address] Pablo Urias MD [address] [place] [address] 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], Neurgenic bladder urine retention and urinary urgency Urology Comment on above: 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], N eurgenic bladder urine retention and urinary urgency Start: 09-11-2024 End: 09-11-2024 Patient encounter procedure 09/11/2024 7:30 AM EDT Appointment Radiology [address] [place] [address] MRI CERVICAL SPINE WO IVCON Radiology Comment on above: MRI CERVICAL SPINE WO IVCON Start: 09-02-2024 End: 12-02-2024 CBC W Auto Differential panel - Blood COMPLETE BLOOD COUNT AND DIFFERENTIAL Lab Routine Expected: 09/02/2024, Expires: 12/02/2024 [facility] Comment on above: Expected: 09/02/2024, Expires: Start: 09-02-2024 End: 12-02-2024 Comprehensive metabolic 2000 panel - Serum or Plasma COMPREHENSIVE METABOLIC PANEL Lab Routine Expected: 09/02/2024, Expires: 12/02/2024 [facility] Comment on above: Expected: 09/02/2024, Expires: Start: 09-02-2024 End: 12-02-2024 Urinalysis complete panel - Urine URINALYSIS (WITH MICROSCOPIC) WITH CULTURE IF INDICATED Lab Routine Dysuria Expected: 09/02/2024, Expires: 12/02/2024 [facility] Comment on above: Expected: 09/02/2024, Expires: Start: 07-29-2024 End: 07-29-2024 Patient encounter procedure 07/29/2024 7:30 AM EDT Appointment Radiology [address] [place] [address] Spinal stenosis of lumbar region, unspecified whether neurogenic claudication pr... Radiology Comment on above: Spinal stenosis of lumbar region, unspec ified whether neurogenic claudication pr... Start: 07-14-2024 End: 07-14-2024 Admission to same day surgery center 07/14/2024 10:30 AM EDT - 07/14/2024 10:45 AM EDT Surgery PAIN ZULMA PROCEDURES [address] [facility] [place] [address] Chris Cleveland MD [address] [place] [address] INJECTION TRIGGER POINT THREE OR MORE MUSCLES (mid/lower back) PAIN ZULMA PROCEDURES Comment on above: INJECTION TRIGGER POINT THREE OR MORE MU SCLES (mid/lower back) Start: 07-14-2024 End: 07-14-2024 Injection single/hanging flags decorator trigger point 3/> muscles MR PAIN ZULMA Start: 07-14-2024 Subsequent hospital visit by physician 07/14/2024 10:30 AM EDT Hospital Encounter PAIN ZULMA PROCEDURES [address] [place] [address] Chris Cleveland MD [address] [place] [address] Myofascial pain syndrome [M79.18] PAIN ZULMA PROCEDURES Comment on above: Myofascial pain syndrome [M79.18] Start: 06-25-2024 End: 06-25-2024 Patient encounter procedure 06/25/2024 9:00 AM EDT Office Visit Pain Management [address] [place] [address] Chely Verma PA-C [address] [place] [address] Follow Up Pain Management Comment on above: Follow Up Start: 06-22-2024 End: 06-22-2024 Patient encounter procedure 06/22/2024 2:45 PM EDT OT/PT/Speech Visit [facility] [address] [place] [address] Aileen Payton, PT, DPT [address] [place] [address] [facility] Comment on above: FCE Start: 04-08-2024 End: 04-08-2024 Patient encounter procedure 04/08/2024 8:00 AM EST Office Visit Internal Medicine [place] [address] [place], [place] [address] Robin Enamorado MD [address] [place] [address] 6 mo follow up Internal Medicine [place] Comment on above: 6 mo follow up Start: 04-03-2024 End: 07-03-2024 CBC panel - Blood by Automated count COMPLETE BLOOD COUNT Lab Routine Intermittent palpitations Encounter for long-term current use of medication Expected: 04/03/2024 (Approximate), Expires: 07/03/2024 [facility] Comment on above: Expected: 04/03/2024 (Approximate), Expi res: 07/03/2024 Start: 04-03-2024 End: 07-03-2024 Comprehensive metabolic 2000 panel - Serum or Plasma COMPREHENSIVE METABOLIC PANEL Lab Routine Intermittent palpitations Encounter for long-term current use of medication Expected: 04/03/2024 (Approximate), Expires: 07/03/2024 [facility] Comment on above: Expected: 04/03/2024 (Approximate), Expi res: 07/03/2024 Start: 04-03-2024 End: 07-03-2024 Magnesium [Mass/volume] in Serum or Plasma MAGNESIUM Lab Routine Intermittent palpitations Encounter for long-term current use of medication Expected: 04/03/2024 (Approximate), Expires: 07/03/2024 [facility] Comment on above: Expected: 04/03/2024 (Approximate), Expi res: 07/03/2024 Start: 04-03-2024 End: 07-03-2024 Thyrotropin [Units/volume] in Serum or Plasma THYROID STIMULATING HORMONE Lab Routine Acquired hypothyroidism Encounter for long-term current use of medication Expected: 04/03/2024 (Approximate), Expires: 07/03/2024 [facility] Comment on above: Expected: 04/03/2024 (Approximate), Expi res: 07/03/2024 Start: 04-03-2024 End: 07-03-2024 Thyroxine (T4) free [Mass/volume] in Serum or Plasma T4 FREE/FREE THYROXINE Lab Routine Acquired hypothyroidism Encounter for long-term current use of medication Expected: 04/03/2024 (Approximate), Expires: 07/03/2024 [facility] Comment on above: Expected: 04/03/2024 (Approximate), Expi res: 07/03/2024 Start: 04-03-2024 End: 07-03-2024 Triiodothyronine (T3) Free [Mass/volume] in Serum or Plasma T3, FREE Lab Routine Acquired hypothyroidism Encounter for long-term current use of medication Expected: 04/03/2024 (Approximate), Expires: 07/03/2024 [facility] Comment on above: Expected: 04/03/2024 (Approximate), Expi res: 07/03/2024 Start: 04-02-2024 Annual PCP Team Chronic Disease Visit Annual PCP Team Chronic Disease Visit [facility] Start: 04-01-2024 End: 07-01-2024 TOXASSURE FLEX 23, URINE TOXASSURE FLEX 23, URINE Lab Routine Degeneration of intervertebral disc of lumbar region with discogenic back pain and lower extremity pain Other rn long term care (current) drug therapy Chronic pain syndrome Expected: 04/01/2024, Expires: 07/01/2024 [facility] Work Phone: Comment on above: Expected: 04/01/2024, Expires: Start: 04-01-2024 End: 04-01-2024 Patient encounter procedure 04/01/2024 9:30 AM EST Office Visit Pain Management [address] [place] [address] Chris Cleveland MD [address] [place] [address] Follow Up Pain Management Comment on above: Follow Up Start: 01-09-2024 End: 01-09-2024 Patient encounter procedure 01/09/2024 9:30 AM EST Office Visit Pain Management [address] [place] [address] Chely Verma PA-C [address] [place] [address] Follow up Pain Management Comment on above: Follow up Start: 11-03-2023 Influenza vaccination Influenza Vaccine (#1) [facility] Start: 10-17-2023 End: 10-17-2023 Admission to same day surgery center 10/17/2023 9:30 AM EDT - 10/17/2023 10:00 AM EDT Surgery PAIN ZULMA PROCEDURES [address] [place] [address] Chris Cleveland MD [address] [place] [address] INJECTION TRIGGER POINT THREE OR MORE MUSCLES (neck/upper back x 1 visit) PAIN ZULMA PROCEDURES Comment on above: INJECTION TRIGGER POINT THREE OR MORE MU SCLES (neck/upper back x 1 visit) Start: 10-17-2023 End: 10-17-2023 Injection single/hanging flags decorator trigger point 3/> muscles INJECTION TRIGGER POINT THREE OR MORE MUSCLES Myofascial pain syndrome 10/17/2023 9:30 AM EDT PAIN ZULMA Start: 10-17-2023 Subsequent hospital visit by physician 10/17/2023 9:30 AM EDT Hospital Encounter PAIN ZULMA PROCEDURES [address] [place] [address] Chris Cleveland MD [address] [place] [address] Myofascial pain syndrome [M79.18] PAIN ZULMA PROCEDURES Comment on above: Myofascial pain syndrome [M79.18] Start: 10-08-2023 End: 10-08-2023 Patient encounter procedure 10/08/2023 10:30 AM EDT Appointment [facility] [address] [place] [address] pt has order [facility] r00.2 [facility] Comment on above: pt has order [facility] r00.2 Start: 10-03-2023 End: 01-02-2024 TOXASSURE FLEX 23, URINE TOXASSURE FLEX 23, URINE Lab Routine Degeneration of lumbar intervertebral disc Lumbar spondylosis Other chcf (current) drug therapy Expected: 10/03/2023, Expires: 01/02/2024 [facility] Work Phone: Comment on above: Expected: 10/03/2023, Expires: Start: 10-03-2023 End: 10-03-2023 Patient encounter procedure 10/03/2023 9:00 AM EDT Office Visit Pain Management [address] [place] [address] Chely Verma PA-C [address] [place] [address] follow up Pain Management Comment on above: follow up Start: 10-02-2023 End: 10-02-2023 Patient encounter procedure 10/02/2023 8:00 AM EDT Office Visit Internal Medicine [place] [address] [place] [address] Robin Enamorado MD [address] [place] [address] 6 month follow up Internal Medicine [place] Comment on above: 6 month follow up Start: 09-26-2023 ANNUAL PCP TEAM CHRONIC DISEASE VISIT ANNUAL PCP TEAM CHRONIC DISEASE VISIT [facility] Start: 09-26-2023 COVID-19 VACCINE (3 - Moderna series) COVID-19 VACCINE (3 - Moderna series) [facility] Comment on above: Postponed from 08/18/2020 (Declined at t his time) Start: 09-26-2023 HEPATITIS B (1 of 3 - 3-dose series) HEPATITIS B (1 of 3 - 3-dose series) [facility] Comment on above: Postponed from 1977 (Declined at t his time) Start: 09-26-2023 Hepatitis B Vaccine (1 of 3 - 19+ 3-dose series) Hepatitis B Vaccine (1 of 3 - 19+ 3-dose series) [facility] Comment on above: Postponed from 1996 (Declined at t his time) Start: 09-26-2023 Hepatitis B Vaccine (1 of 3 - 3-dose series) Hepatitis B Vaccine (1 of 3 - 3-dose series) [facility] Comment on above: Postponed from 1977 (Declined at t his time) Start: 08-08-2023 End: 08-08-2023 Patient encounter procedure 08/08/2023 9:15 AM EDT Office Visit Pain Management [address] [facility] [place] [address] Chely Verma PA-C [address] [place] [address] FOLLOW UP Pain Management Comment on above: FOLLOW UP Start: 08-01-2023 End: 10-31-2023 Basic metabolic 2000 panel - Serum or Plasma BASIC METABOLIC PNL Lab Routine Encounter for long-term current use of medication Expected: 08/01/2023 (Approximate), Expires: 10/31/2023 [facility] Work Phone: Comment on above: Expected: 08/01/2023 (Approximate), Expi res: 10/31/2023 Start: 03-28-2023 COLORECTAL CANCER SCREENING COLORECTAL CANCER SCREENING [facility] Comment on above: Postponed from 2022 (Declined at t his time) Start: 03-13-2023 ANNUAL PCP TEAM CHRONIC DISEASE VISIT ANNUAL PCP TEAM CHRONIC DISEASE VISIT [facility] Start: 03-04-2023 Behavioral Health Screening Behavioral Health Screening [facility] Start: 03-04-2023 Depression Assessment Depression Assessment [facility] Start: 11-02-2022 Influenza vaccination [facility] Start: 10-11-2022 End: 12-11-2022 TOXASSURE FLEX 23, URINE TOXASSURE FLEX 23, URINE Lab Routine Other rn long term care (current) drug therapy Brown-Sequard syndrome (HCC) Expected: 10/11/2022, Expires: 12/11/2022 [facility] Work Phone: Comment on above: Expected: 10/11/2022, Expires: Start: 08-21-2022 ANNUAL PCP TEAM CHRONIC DISEASE VISIT ANNUAL PCP TEAM CHRONIC DISEASE VISIT [facility] Start: 05-29-2022 LIPID SCREEN LIPID SCREEN [facility] Start: 04-26-2022 End: 06-26-2022 DRUG SCR TOXASURE DRUG SCR TOXASURE Lab Routine Chronic midline low back pain without sciatica Other rn long term care (current) drug therapy Expected: 04/26/2022, Expires: 06/26/2022 [facility] Work Phone: Comment on above: Expected: 04/26/2022, Expires: Start: 2022 COLOGUARD (FIT-DNA) COLOGUARD (FIT-DNA) [facility] Start: 2022 Colonoscopy COLONOSCOPY [facility] Start: 2022 COLORECTAL CANCER SCREENING COLORECTAL CANCER SCREENING [facility] Start: [address] COLONOGRAPHY [facility] Start: 2022 FECAL OCCULT BLOOD FECAL OCCULT BLOOD [facility] Start: 2022 Screening for malignant neoplasm of colon [facility] Start: 2022 SIGMOIDOSCOPY SIGMOIDOSCOPY [facility] Start: 03-13-2022 End: 05-13-2022 Comprehensive metabolic 2000 panel - Serum or Plasma [facility] Work Phone: Comment on above: Expected: 03/13/2022, Expires: 3 Start: 03-13-2022 End: 05-13-2022 Lipid 1996 panel - Serum or Plasma [facility] Work Phone: Comment on above: Expected: 03/13/2022, Expires: 3 Start: 03-13-2022 End: 05-13-2022 Magnesium [Mass/volume] in Serum or Plasma [facility] Work Phone: Comment on above: Expected: 03/13/2022, Expires: 3 Start: 03-13-2022 End: 05-13-2022 TESTOSTERONE, FREE AND TOTAL [facility] Work Phone: Comment on above: Expected: 03/13/2022, Expires: 3 Start: 03-13-2022 End: 05-13-2022 Thyrotropin [Units/volume] in Serum or Plasma [facility] Work Phone: Comment on above: Expected: 03/13/2022, Expires: 3 Start: 03-13-2022 End: 05-13-2022 Thyroxine (T4) free [Mass/volume] in Serum or Plasma [facility] Work Phone: Comment on above: Expected: 03/13/2022, Expires: 3 Start: 03-13-2022 End: 05-13-2022 Triiodothyronine (T3) Free [Mass/volume] in Serum or Plasma [facility] Work Phone: Comment on above: Expected: 03/13/2022, Expires: 3 Start: 01-19-2022 ANNUAL PCP TEAM CHRONIC DISEASE VISIT ANNUAL PCP TEAM CHRONIC DISEASE VISIT [facility] Start: 01-03-2022 Urine microalbumin profile DTAP,TDAP,TD (2 - Td or Tdap) [facility] Start: 11-02-2021 Influenza vaccination INFLUENZA (#1) [facility] Start: 10-12-2021 End: 12-12-2021 DRUG SCR TOXASURE DRUG SCR TOXASURE Lab Routine Chronic midline low back pain without sciatica Other chcf (current) drug therapy Expected: 10/12/2021, Expires: 12/12/2021 [facility] Work Phone: Comment on above: Expected: 10/12/2021, Expires: 2 Start: 10-04-2021 Adult depression screening assessment DEPRESSION SCREENING [facility] Start: 08-21-2021 End: 10-21-2021 CBC W Auto Differential panel - Blood CBC + DIFF Lab Routine Gastroesophageal reflux disease without esophagitis Expected: 08/21/2021, Expires: 10/21/2021 [facility] Work Phone: Comment on above: Expected: 08/21/2021, Expires: 2 Start: 08-21-2021 End: 10-21-2021 Comprehensive metabolic 2000 panel - Serum or Plasma COMP METABOLIC PANEL Lab Routine Gastroesophageal reflux disease without esophagitis Acquired hypothyroidism Expected: 08/21/2021, Expires: 10/21/2021 [facility] Work Phone: Comment on above: Expected: 08/21/2021, Expires: 2 Start: 08-21-2021 End: 10-21-2021 Hepatitis C virus Ab [Presence] in Serum HEP C AB IA W/CONF SCRN Lab Routine Need for hepatitis C screening test Expected: 08/21/2021, Expires: 10/21/2021 [facility] Work Phone: Comment on above: Expected: 08/21/2021, Expires: 2 Start: 08-21-2021 End: 10-21-2021 Lipid 1996 panel - Serum or Plasma LIPID PANEL BASIC Lab Routine Screening for lipid disorders Expected: 08/21/2021, Expires: 10/21/2021 [facility] Work Phone: Comment on above: Expected: 08/21/2021, Expires: 2 Start: 08-21-2021 End: 10-21-2021 LIPID PANEL, NONFASTING LIPID PANEL, NONFASTING Lab Routine Screening for lipid disorders Expected: 08/21/2021, Expires: 10/21/2021 [facility] Work Phone: Comment on above: Expected: 08/21/2021, Expires: 2 Start: 08-21-2021 End: 10-21-2021 Thyrotropin [Units/volume] in Serum or Plasma TSH BLD Lab Routine Acquired hypothyroidism Expected: 08/21/2021, Expires: 10/21/2021 [facility] Work Phone: Comment on above: Expected: 08/21/2021, Expires: 2 Start: 03-04-2021 DEPRESSION ASSESSMENT DEPRESSION ASSESSMENT [facility] Start: 02-16-2021 ANNUAL PCP TEAM CHRONIC DISEASE VISIT ANNUAL PCP TEAM CHRONIC DISEASE VISIT [facility] Start: 11-23-2020 COVID-19 VACCINE (3 - Booster for Moderna series) COVID-19 VACCINE (3 - Booster for Moderna series) [facility] Start: 08-18-2020 COVID-19 VACCINE (3 - Booster for Moderna series) COVID-19 VACCINE (3 - Booster for Moderna series) [facility] Start: 10-02-2009 Medicare Annual Wellness Visit Medicare Annual Wellness Visit [facility] Start: 1996 Hepatitis B Vaccine (1 of 3 - 19+ 3-dose series) Hepatitis B Vaccine (1 of 3 - 19+ 3-dose series) [facility] Start: 1995 HEPATITIS C SCREENING HEPATITIS C SCREENING [facility] Start: 1995 HIV SCREENING HIV SCREENING [facility] Start: 1977 HEPATITIS B (1 of 3 - 3-dose series) HEPATITIS B (1 of 3 - 3-dose series) [facility] Injection single/hanging flags decorator trigger point 3/> muscles INJECTION TRIGGER POINT THREE OR MORE MUSCLES Myofascial pain syndrome MR PAIN ZULMA JUAN FRANCISCO Moya Okrug[employer] EVENT MONITOR JUAN FRANCISCO [employer] EVENT MONITOR Cardiology Routine Intermittent palpitations Ordered: 04/02/2023 [facility] Work Phone: Comment on above: Ordered: 04/02/2023 [facility] Moya Okruga EVENT MONITOR [facility] Moya Okruga EVENT [employer] Cardiology Routine Intermittent palpitations Ordered: 10/02/2023 [facility] Work Phone: Comment on above: Ordered: 10/02/2023 End: 10-02-2025 MR Cervical spine WO contrast MRI CERVICAL SPINE WO IVCON Radiology Routine Spinal stenosis of cervical region 1 Occurrences starting 09/02/2024 until 10/02/2025 [facility] Work Phone: Comment on above: 1 Occurrences starting 09/02/2024 until 10/02/2025 End: 08-20-2025 MR Lumbar spine WO contrast MRI LUMBAR SPINE WO IVCON Radiology Routine Spinal stenosis of lumbar region, unspecified whether neurogenic claudication present 1 Occurrences starting 07/20/2024 until 08/20/2025 [facility] Work Phone: Comment on above: 1 Occurrences starting 07/20/2024 until 08/20/2025 End: 10-02-2025 MR Thoracic spine WO contrast MRI THORACIC SPINE WO IVCON Radiology Routine Brown-Sequard syndrome (HCC) 1 Occurrences starting 09/02/2024 until 10/02/2025 [facility] Comment on above: 1 Occurrences starting 09/02/2024 [...] TELEMETRY) Holter Routine Intermittent palpitations Ordered: 03/13/2022 [facility] Work Phone: Comment on above: Ordered: 03/13/2022 Patient Education ED Headache Unspecified [facility] Work Phone: PFIZER-BIONTECH COVI D-19 VACCINE, AGE 12+ YR ([place] TOP) PFI[employer]ER-BIONTECH COVID-19 VACCINE, AGE 12+ YR ([place] TOP) Immunization/Injection Routine Need for COVID-19 vaccine 1 Occurrences starting 08/21/2021 [facility] Work Phone: Comment on above: 1 Occurrences starting 08/21/2021 Physical performance test/clara w/reprt ea 15 min PHYSICAL PERFORMANCE TEST Procedures Routine 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 Lumbar spondylosis Myofascial pain syndrome Chronic incomplete quadriplegia (HCC) Lesion of left ulnar nerve Ordered: 04/21/2024 [facility] Work Phone: Comment on above: Ordered: 04/21/2024 End: 09-06-2024 XR Knee - left AP and Lateral XR KNEE LIMITED 2V AP/LAT LEFT Radiology Routine Chronic pain of left knee 1 Occurrences starting 08/08/2023 until 09/06/2024 [facility] Work Phone: Comment on above: 1 Occurrences starting 08/08/2023 until 09/06/2024 End: 09-06-2024 XR Knee - right AP and Lateral XR KNEE LIMITED 2V AP/LAT RIGHT Radiology Routine Chronic pain of right knee 1 Occurrences starting 08/08/2023 until 09/06/2024 [facility] Comment on above: 1 Occurrences starting 08/08/2023 until 09/06/2024 [facility] Immunizations Immunization Date Immunization Notes Care Provider Beena monk 04-02-2023 influenza, injectabl e, quadrivalent, contains preservative Robin Enamorado MD Work Phone: [facility] 04-02-2023 influenza virus vacc ine, unspecified formulation Robin Enamorado MD Work Phone: [facility] 03-29-2022 tetanus toxoid, redu niall diphtheria toxoid, and acellular pertussis vaccine, adsorbed Ccf Provider [facility] 03-13-2022 influenza, injectabl e, quadrivalent, contains preservative Robin Enamorado MD Work Phone: [facility] 03-13-2022 influenza virus vacc ine, unspecified formulation Chely Verma PA-C Work Phone: [facility] 01-19-2021 influenza, injectabl e, quadrivalent, contains preservative Chely Verma PA-C Work Phone: [facility] Work Phone: 06-23-2020 COVID-19 vaccine, fu ll dose (MODERNA) Chely Verma PA-C Work Phone: [facility] Work Phone: 05-26-2020 COVID-19 vaccine, fu ll dose (MODERNA) Chely Verma PA-C Work Phone: [facility] Work Phone: 02-17-2020 influenza, injectabl e, quadrivalent, contains preservative Chely Verma PA-C Work Phone: [facility] 01-21-2019 influenza virus vacc ine, unspecified formulation Robin Enamorado MD Work Phone: [facility] 01-21-2019 influenza, injectabl e, quadrivalent, contains preservative Chely Verma PA-C Work Phone: [facility] 12-10-2017 influenza, injectabl e, quadrivalent, contains preservative Chely Verma PA-C Work Phone: [facility] 02-21-2017 influenza, injectabl e, quadrivalent, contains preservative Chely Verma PA-C Work Phone: [facility] Work Phone: 01-16-2016 influenza, injectabl e, quadrivalent, contains preservative Chely Verma PA-C Work Phone: [facility] Work Phone: 01-04-2012 influenza virus vacc ine, unspecified formulation Chely Verma PA-C Work Phone: [facility] 01-04-2012 tetanus toxoid, redu niall diphtheria toxoid, and acellular pertussis vaccine, adsorbed Chely Verma PA-C Work Phone: [facility] 01-11-2009 novel Influenza-H1N1 -09, live virus for nasal administration Robin Enamorado MD Work Phone: [facility] Payers Date Payer Category Payer Self-pay 2022 Unknown [id number] 2009 Medicare MEDICARE MEDICAR E A AND B [id number] 2009-Present [phone] [address] [address] [place] [address] Medicare [id number] 2009 Medicare [id number] 2009 Medicare [id number] Unknown [id number] Unknown [id number] Social History Date Type Detail Facility Start: 10-19-2010 End: 10-06-2024 Tobacco smoking status NHIS Never smoked tobacco [facility] Work Phone: Start: 10-19-2010 End: 01-29-2022 Tobacco use and exposure Former smokeless tobacco user [facility] Work Phone: History of tobacco use Chews Tobacco [facility] Work Phone: Start: 03-01-2021 End: 09-02-2024 Alcohol intake Current non-drinker of alcohol (finding) [facility] Start: 08-09-2019 End: 01-18-2021 History SDOH Alcohol Frequency 2 [facility] Start: 08-09-2019 History SDOH Alcohol Std Drinks 1 [facility] Start: 08-09-2019 History SDOH Social Connections Phone 5 [facility] Start: 08-09-2019 History SDOH Social Connections Mormon 3 [facility] Start: 08-09-2019 History SDOH Social Connections Living 8 [facility] Start: 08-09-2019 History SDOH Financial 4 [facility] Start: 08-09-2019 Education 15 [facility] Start: 1975 Sex Assigned At Male C [facility] Start: 08-07-2021 End: 01-29-2022 Exposure to SARS-CoV-2 (event) Not sure [facility] Start: 08-09-2019 End: 06-22-2024 History of Social function [facility] Start: 08-09-2019 End: 06-22-2024 Social connection and isolation panel [facility] Do you belong to any clubs or organizations such as orthodox groups, unions, fraternal or athletic groups, or school groups? Yes [facility] Are you now , , , , never or living with a partner? Living with partner [facility] How often to you hav e a drink containing alcohol? Monthly or less [facility] How many standard dr inks containing alcohol do you have on a typical day? 1 or 2 [facility] How often do you hav e 6 or more drinks on 1 occasion? Never [facility] How hard is it for y ou to pay for the very basics like food, housing, medical care, and heating Not very hard [facility] Adult Depression Screening Assessment 0 [facility] Work Phone: Do you feel stress - tense, restless, nervous, or anxious, or unable to sleep at night because your mind is troubled all the time - these days [OSQ] Only a little [facility] (I/We) worried wheth er (my/our) food would run out before (I/we) got money to buy more. Never true [facility] In the past 12 month s, was there a time when you were not able to pay the mortgage or rent on time? No [facility] Start: 09-27-2019 Gender identity Identifies as male gender (finding) [facility] Functional Status Date Assessment Result Facility 09-21-2014 Are you deaf, or do you have serious difficulty hearing No 09/21/2014 8:22 AM Annalise Marina RN No [facility] 09-21-2014 Are you blind, or do you have serious difficulty seeing, even when wearing glasses No 09/21/2014 8:22 AM Annalise Marina RN No [facility] 09-21-2014 Do you have serious difficulty walking or climbing stairs No 09/21/2014 8:22 AM Annalise Marina RN No [facility] 09-21-2014 Do you have difficul ty dressing or bathing No 09/21/2014 8:22 AM Annalise Marina RN No [facility] 09-21-2014 Because of a physica l, mental, or emotional condition, do you have difficulty doing errands alone such as visiting a physician's office or shopping No 09/21/2014 8:22 AM Annalise Marina RN No [facility] Mental Status Date Assessment Result Facility 10-06-2024 Cognitive function Level Of Cons ciousness Awake;Alert;Appropriate;Fol lows Commands [facility] Work Phone: 09-21-2014 Because of a physica l, mental, or emotional condition, do you have serious difficulty concentrating, remembering, or making decisions No 09/21/2014 8:22 AM Annalise Marina RN No [facility] Clinical Notes 07-18-2007 to 10-06-2024 Note Date & Type Note Facility 10-06-2024 Radiology Diagnostic study note [facility] Imaging Services [address], [place] [address] Brain/Head without Contrast MR#: [id number] Acct: [id number] Name: CHELY SAMAYOA Rep #: [id number] : 1975 M 49 From: Benjamin Schilling MD PCP: Dr. Robin Enamorado MD Status: RE G ER Study:Brain/Head without Contrast Date of Exa m: 10/06/24 Exam# [id number] Ordering Dr: Rupinder Wilburn DO PROCEDURE: BRAIN/HEAD [...] IMPRESSION: NORMAL NONCONTRAST HEAD CT. Reading Location: [facility] CC: Dr. Robin Enamorado MD; Dr. Jean Carlos Wilburn DO ~ Molder Operator: Signed [facility] 10-02-2024 Evaluation note Diagnosis Onset Date Resolution Brown-Sequard syndrome acute Au 2024 9:57am Cervical vertebral fusion acute October 02, 2024 9:57am Foraminal stenosis of lumbar region acute October 02, 2024 9:57am Other intervertebral disc degeneration, lumbar region with discogenic back acute October 02, 2024 9:57am Retrolisthesis acute October 9:57am [facility] Work Phone: 1(265) 404-163207-23-2025 Surgery Surgical operation note* Operative Report - Frandy Yip MD - 09/23/2024 11:15 AM EDT OPERATIVE/PROCEDURE REPORT : LOG ID: [id number] SURGERY/PROCEDURE DATE: 09/23/2024 INCISION/PROCEDURE START TIME: 11:24 [...] Lumbar interlaminar epidural steroid injectcion SURGEON(S)/PROCEDURALIST(S) AND BORDER MEASURER(S): Surgeons and Role: * Frandy Yip MD [...] understanding. Frandy Yip MD September 23, 2024 [facility] Work Phone: 1(316) 327-186307-23-2025 Surgical operation note* Operative Report - Frandy Yip MD - 09/23/2024 11:15 AM EDT OPERATIVE/PROCEDURE REPORT : LOG ID: [id number] SURGERY/PROCEDURE DATE: 09/23/2024 INCISION/PROCEDURE START TIME: 11:24 [...] Lumbar interlaminar epidural steroid injectcion SURGEON(S)/PROCEDURALIST(S) AND BORDER MEASURER(S): Surgeons and Role: * Frandy Yip MD [...] MD September 23, 2024 documented in this encounterFirelands [facility]-2025 NoteHNO ID: [id number] Author: AMIE DE LA ROSA MA Service: ? Author Type: Flexible Nanny Type: Progress Notes Filed: 09/21/2024 10:44 Note Text: Post Void Residual done on patient with 15 cc residual volume remaining. notified. Amie De La Rosa [facility]07-21-2025 History of Present illness Narrative* Amie De La Rosa MA - 09/21/2024 9:11 AM EDT Post Void Residual done on patient with 15 cc residual volume remaining. notified. Amie De La Rosa MA * Pablo Urias MD - 09/21/2024 9:03 AM EDT [facility] NEW PATIENT HISTORY AND PHYSICAL EXAM PATIENT INFO: Chely Samayoa 49 year old REFERRING MKathy: [address] [place] [address] HISTORY: Chely Samayoa is a 49 year [...] positive for heart murmur; planning to see upstream biomanufacturing technician in couple of months Respiratory: positive [...] Pablo Urias MD Staff documented in this encounterFirelands [facility]-2025 NoteHNO ID: [id number] Author: PABLO URIAS MD Service: ? Author Type: Physician Type: Progress Notes Filed: 09/21/2024 10:44 Note Text: [facility] NEW PATIENT HISTORY AND PHYSICAL EXAM PATIENT INFO: Chely Samayoa 49 year old REFERRING M.D.: Ainsley Alfonso [address] [place] [address] HISTORY: Chely Samayoa is a 49 year [...] positive for heart murmur; planning to see upstream biomanufacturing technician in couple of months Respiratory: positive for shortness of breath; unrelated to positions or activities Gastrointestinal: positive for neurogenic bowel; sometimes goes up to 4 days without having BM, does digital stimulation PRN Integumentary: negative Neurological: positive for cervical SCI in 2007 Psychiatric: negative Endocrine: positive for hypothyroidism Hematologic/Lymphatic: negative : Force of Stream: (more content not included)...[facility] 09-21-2024 NotePatient Outreach (UROLMN) CHELY SAMAYOA ([id number]) 1975 M Date Time Provider Department 09/21/24 PABLO URIAS During your visit today, we recorded the following information about you: Allergies As of Date: 09/21/2024 (No Known Allergies) Date Reviewed: 09/21/2024 Reviewed by: Amie De La Rosa MA - Fully Assessed Visit Diagnosis:Screening for genitourinary condition [Z13.89] Order(s):UA DIP, URINE (POC) [2832344] Order #: [id number] FUTURE Prescriptions as of 09/24/2024 - traMADol [...] low back pain without sciatica *03/09/2019 Other chcf (current) drug therapy [Z79.899]09/03/2019 Opioid dependence, uncomplicated (HCC) [F11.20] 07/19/2022 Chronic pain syndrome [G89.4] 02/18/2023 Lumbar spondylosis [M47.816] 02/18/2023 Myofascial pain syndrome [M79.18] 02/18/2023 Palpitations [R00.2] 10/28/2023 Encounter Status:Closed by FABIO VILLALTA on 09/24/24[facility] 09-16-2024 Telephone encounter Note* Telephone Encounter - Franny Dupree - 09/16/2024 8:55 AM EDT Chely returned my call and stated he can come in at 10:45 for the 11:00 procedure. Franny Dupree September 16, 2024 8:55 AM [facility]07-16-2025 Miscellaneous Notes* Telephone Encounter - Franny Dupree [...] 15, 2024 4:09 PM documented in this encounterFirelands [facility]-2025 Telephone encounter Note * Telephone Encounter - Franny Dupree - 09/15/2024 4:07 PM EDT I left a message to inform Chely that the time for his procedure for September 23 is changed to 11:00 not 3:00. Please call to confirm. Franny Dupree September 15, 2024 4:09 PM T [facility]07-14-2025 Telephone encounter Note* Telephone Encounter - Ainsley [...] with this, gave patient scheduling phone number [phone] Patient will contact office should symptoms worsen. He was also encouraged to keep his appointment with Dr. Urias on 09/21 to discuss concerns of urinary retention. Ainsley Alfonso PA-C [facility] Work Phone: 1(990) 711-672207-14-2025 Miscellaneous Notes* Telephone Encounter - Ainsley Alfonso [...] with this, gave patient scheduling phone number [phone] Patient will contact office should symptoms worsen. He was also encouraged to keep his appointment with Dr. Urias on 09/21 to discuss concerns of urinary retention. Ainsley Alfonso PA-C documented in this encounterFirelands [facility]07-[facility]25 History of Present illness Narrative* Natali Doll [...] PATIENT PRESENTS WITH AN IMPLANTABLE OR ATTACHED SERVICE STATION OPERATOR: No RADIOLOGY DEPARTMENT: MR; Exam(s) Completed: Spine: Cervical spine and Thoracic spine. AromatherapyAdministered: No PERIPHERAL IV DATA: Not applicable SIGNED BY: RT Vicky(R) September 11, 2024 7:53 AM documented in this encounterFirelands [facility] Medical [facility]07-11-2025 NoteHNO ID: [id number] Author: NATALI DOLL RT(R) Service: ? Author [...] PATIENT PRESENTS WITH AN IMPLANTABLE OR ATTACHED SERVICE STATION OPERATOR: No RADIOLOGY DEPARTMENT: MR; Exam(s) Completed: Spine: Cervical spine and Thoracic spine. Aromatherapy Administered: No PERIPHERAL IV DATA: Not applicable SIGNED BY: RT Vicky(R) September 11, 2024 7:53 [facility]07-02-2025 Instructions* Patient Instructions* Ainsley Alfonso PA-C - 09/02/2024 11:45 AM EDT Spine Appointments [phone] I will reach out to our coordinator to help get you in more timely manner Schedule with urology- [facility]: [phone] Marian Del Rio [...] today. Ainsley Alfonso PA-C documented in this encounterFirelands [facility]07-02-2025 History of Present illness Narrative* Ainsley Alfonso [...] and cervical SCI. He was treated at [facility] where he was found to have a C5 burst fracture and cervical SCI with pubic diastasis and right sacral fracture.. He was taken to the OR on 04/07/07 for a C4-6 ACDF and pelvic fracture repair including a left S-I joint pinning and B/L pubic ORIF. IVC filter was placed on 04/09[facility]07. [facility] [...] was [facility]. 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 Toilet/Chair/Bed Transfer: transfers, at times loses strength [...] Diagnostic Studies: IMPRESSION: No acute osseous abnormality. Molder Operator: CARLA Transcribe Date/Time: Oct 05 2023 11:51A [...] RIGHT anterior tibial tubercle, sequela of remote Festus-Schlatter. IMPRESSION: L4-5 and L5-S1 level spondylosis as detailed. COUNTING REFERENCE: Inferior lumbar disc taken as L5-S1. Structural anomalies: None. Molder Operator: PSCB Transcribe Date/Time: Jul 29 2024 10:14A Dictated by : EL URENA MD This examination was interpreted and the report reviewed and electronically signed by: EL URENA MD on Jul 29 2024 10:17AM EST Results-Findings * * *Final Report* * * DATE OF EXAM: Jul 29 2024 8:15AM [facility] [id number] - MRI LUMBAR SPINE [...] which included preparing to see the patient, [id number] patient care, completing clinical documentation, obtaining and/or reviewing separately obtained history, performing a medically appropriate examination, counseling and educating the pat ient/family/caregiver, ordering medications, tests, or procedures, communicating with other HCPs (not separately reported), independently interpreting results (not separately reported), and communicating results to the patient/family/caregiver. Ainsley Alfonso PA-C documented in this encounterFirelands [facility]07-02-2025 NoteHNO ID: [id number] Author: AINSLEY ALFONSO PA-C Service: ? Author Type: Physician Medical Technologist Type: Progress Notes Filed: 09/03/2024 11:26 Note [...] and cervical SCI. He was treated at [facility] where he was found to have a C5 burst fracture and cervical SCI with pubic diastasis and right sacral fracture.. He was taken to the OR on 04/07/07 for a C4-6 ACDF and pelvic fracture repair including a left S-I joint pinning and B/L pubic ORIF. IVC filter was placed on 04/09/07. [facility] [...] was placed on 04/09/07. 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 In [...] muscle cramping stiffness and (more content not included)...[facility]06-24-2025 Telephone encounter Note* Telephone Encounter - Berta Cooper - 08/25/2024 12:24 PM EDT Patient calling in asking if he can get a disk made of his MRI completed on 07/29/24 and the report. Please call patient when ready for pick up attendant. Berta Cooper August 25, 2024 12:24 PM [facility]06-24-2025 Miscellaneous Notes* Telephone Encounter - Berta Cooper - 08/25/2024 12:24 PM EDT Patient calling in asking if he can get a disk made of his MRI completed on 07/29/24 and the report. Please call patient when ready for pick up attendant. Berta Cooper August 25, 2024 12:24 PM documented in this encounterFirelands Regional Medical [facility]05-29-2025 Note* Addendum Note - Chely Verma PA-C - 07/30/2024 2:34 PM EDTAddended by: CHELY VERMA on: 07/30/2024 02:34 PM Modules accepted: Orders [facility]05-29-2025 Miscellaneous Notes* Addendum Note - Chely Verma PA-C - 07/30/2024 2:34 PM EDTAddended by: CHELY VERMA on: 07/30/2024 02:34 PM Modules accepted: Orders documented in this encounterFirelands Regional Medical [facility]05-29-2025 Instructions* Patient Instructions* Chely Verma PA-C - [...] on his better days. You can add 6207-0794 mg of tylenol extra per day as [...] Procedure to be done: Lumbar Epidural A trencher driver is required: Yes Oral Sedation is [...] following your procedure. You may resume normal [id number] hours following your procedure or as otherwise instructed. Special Instructions - NONE documented in this encounterFirelands Regional Medical Center [facility]05-29-2025 NoteHNO ID: [id number] Author: CHELY VERMA PA-C Service: ? Author Type: Physician Medical Technologist Type: Progress Notes Filed: 07/30/2024 12:13 Note Text: This note was created using Netscaperiter. Subjective Chely Samayoa is a 49 year [...] Ear: Hearing normal. Le (more content not included)...[facility]05-29-2025 History of Present illness Narrative* Chely Verma PA-C - 07/30/2024 11:34 AM EDT This note was created using Netscaperiter. Subjective Chely Samayoa is a 49 year [...] on his better days. You can add 6146-9192 mg of tylenol extra per day as [...] evaluation. Chely Verma PA-C documented in this encounterFirelands Regional Medical [facility]05-28-2025 Telephone encounter Note * Telephone Encounter - Anita Harding LPN - 07/29/2024 3:45 PM EDT Message left on Id'd VM to schedule sooner FU and open dates given, and offer of VO. CS number given to call and schedule. [facility]05-28-2025 Miscellaneous Notes* Telephone Encounter - Anita Harding [...] LUMBAR SPINE WO IVCON. documented in this encounterFirelands Regional Medical Center [facility]05-28-2025 Telephone encounter Note * Telephone Encounter - [...] that'sfine too. MRI LUMBAR SPINE WO IVCON. [facility]05-28-2025 History of Present illness Narrative* Karlie Das [...] PATIENT PRESENTS WITH AN IMPLANTABLE OR ATTACHED SERVICE STATION OPERATOR: No RADIOLOGY DEPARTMENT: MR; Exam(s) Completed: Spine: Lumbar spine. Lavender Administered: No PERIPHERAL IV DATA: Not applicable SIGNED BY: RT Fortino(R) July 29, 2024 8:28 AM documented in this encounterFirelands Regional Medical [facility]05-28-2025 NoteHNO ID: [id number] Author: KARLEI DAS RT(R) Service: ? Author Type: Technologist [...] PATIENT PRESENTS WITH AN IMPLANTABLE OR ATTACHED SERVICE STATION OPERATOR: No RADIOLOGY DEPARTMENT: MR; Exam(s) Completed: Spine: Lumbar spine. Lavender Administered: No PERIPHERAL IV DATA: Not applicable SIGNED BY: Karlie Das, (R) July 29, 2024 8:28 [facility]05-19-2025 Telephone encounter Note* Telephone Encounter - Chely Verma PA-C - 07/20/2024 12:06 PM EDT I put the order for the MRI in the system. If he wants to get it done at a non [facility] Facility we willneed to send the order, otherwise, he can call and get that scheduled [facility]05-19-2025 Miscellaneous Notes* Telephone Encounter - Chely Verma [...] 11:03 AM * Telephone Encounter - Norma oHoper RN - 07/20/2024 9:50 AM EDT Attempted [...] 17, 2024 4:26 PM documented in this encounterFirelands Regional Medical Center [facility]05-19-2025 Telephone encounter Note * Telephone Encounter - Norma Hooper RN - 07/20/2024 11:02 AM EDT Pt called back and informed of the message below, pt has not had any surgeries to his lumbar spine.Please advise. Norma Hooper RN July 20, 2024 11:03 AM [facility]05-19-2025 Telephone encounter Note* Telephone Encounter - Norma Hooper RN - 07/20/2024 9:50 AM EDT Attempted to call the pt with the information below, message left to call the office back to discuss. The message was also sent in pt's My chart. Norma Hooper RN July 20, 2024 9:51 AM [facility]05-19-2025 Telephone encounter Note* Telephone Encounter - Chely [...] have the medications available to address this. [facility]05-16-2025 Telephone encounter Note* Telephone Encounter - Natali Wen RN - 07/17/2024 4:26 PM EDT This is a duplicate entry by patient, will close this one. Natali Wen RN July 17, 2024 4:26 PM [facility]05-16-2025 Miscellaneous Notes* Telephone Encounter - Natali Wen RN - 07/17/2024 4:26 PM EDT This is a duplicate entry by patient, will close this one. Natali Wen RN July 17, 2024 4:26 PM documented in this encounterFirelands Regional Medical [facility]05-16-2025 Telephone encounter Note * Telephone Encounter - Natali Wen RN - 07/17/2024 4:24 PM EDT Next ov 09/24, please advise Natali Wen RN July 17, 2024 4:26 PM [facility]05-13-2025 Surgery Surgical operation note* Operative Report - [...] in the office today: Trigger Point Injection(s): (87751) -Informed consent was obtained and all patient [...] minutes and patient felt better for discharge. [facility]05-13-2025 Surgical operation note* Operative Report - Chris [...] felt better for discharge. documented in this encounterFirelands Regional Medical Center [facility]05-13-2025 Telephone encounter Note * Telephone Encounter - Leonor Naik LPN - 07/14/2024 8:14 AM EDT Faxed note to [place] from Dr Dacosta on 12/04/17 Leonor Naik LPN [facility]05-13-2025 Miscellaneous Notes* Telephone Encounter - Leonor Naik LPN - 07/14/2024 8:14 AM EDT Faxed note to [place] from Dr Dacosta on 12/04/17 Leonor Naik LPN documented in this encounterFirelands Regional Medical [facility]05-07-2025 Telephone encounter Note * Telephone Encounter - Chely Verma PA-C - 07/08/2024 2:38 PM EDT The following approved medication requests have been transmitted electronically. Requested Prescriptions Signed Prescriptions Disp Refills methylPREDNISolone (MEDROL DOSE-PACK) 4 mg Dose-Pack 21 tablet 0 Sig: Take as instructed per package. Chely Verma PA-C [facility]05-07-2025 Miscellaneous Notes* Telephone Encounter - Chely Verma [...] 08, 2024 10:41 AM documented in this encounterFirelands Regional Medical [facility]05-07-2025 Telephone encounter Note * Telephone Encounter - Natali Wen RN - 07/08/2024 10:41 AM EDT Please advise Natali Wen RN July 08, 2024 10:41 AM [facility]04-24-2025 NoteHNO ID: [id number] Author: CHELY VERMA PA-C Service: ? Author Type: Physician Medical Technologist Type: Progress Notes Filed: 06/25/2024 09:41 Note Text: This note was created using WhatsAppter. Subjective Chely Samayoa is a 49 year [...] left L5-S1 dermatomes. Ne (more content not included)...[facility]04-22-2025 NoteHNO ID: [id number] Author: CIRILO GARCIA PT Service: ? 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 Norma Hooper RN [facility]03-31-2025 Miscellaneous Notes* Telephone Encounter - Norma Hooper [...] Panel: No results found for: UQCANN, UQBNZL, ZCK9DSK, UQAMPH, UQMAMP, UQBUPRE, UQNORBUP, UQMTHD, UQEDDP, UQTRAM, [...] advise. Norma Hooper RN documented in this encounterFirelands Regional [facility]03-19-2025 Telephone encounter Note * Telephone Encounter - Anneliese Godwin APRN.BRITNEY - 05/20/2024 4:11 PM EDT See other encounter. [facility] Work Phone: [phone] Miscellaneous Notes* Telephone Encounter - Anneliese Godwin APRN.CNP - 05/20/2024 4:11 PM EDT See other encounter. documented in this encounterFirelands Regional Medical [facility]03-12-2025 Telephone encounter Note * Telephone Encounter - Saul Valdivia - 05/13/2024 9:19 AM EDT Contacted patient and scheduled an FCE on June 26 at 2:45 with Aileen Payton. Informed patient of the requirements to bring a written job description as well as where the test will be taken andthat photo ID is required to get into the building. [facility]03-12-2025 Miscellaneous Notes* Telephone Encounter - Saul Valdivia [...] to schedule Ainsley Walker documented in this encounterFirelands Regional Medical [facility]03-11-2025 Telephone encounter Note * Telephone Encounter - Julianna Diggs - 05/12/2024 10:11 AM EDT Attempted to call pt to nereida FCE Pt did not answer so EMILY Diggs [facility]03-11-2025 Telephone encounter Note* Telephone Encounter - Julianna [...] location and photo id requirement. Ron, R [facility]03-10-2025 Telephone encounter Note* Telephone Encounter - Ainsley Walker - 05/11/2024 7:52 AM EDT Received order for an FCE. Order scanned into medical record. Please contact patient to schedule Ainsley Walker [facility]02-18-2025 NoteHNO ID: [id number] Author: CHELY VERMA PA-C Service: ? Author Type: Physician Medical Technologist Type: Progress Notes Filed: 04/21/2024 15:23 Note Text: The patient has paperwork for disability that are requesting to know his abilities. We will order an FCE for the patient to help him obtain this information.[facility]02-18-2025 History of Present illness Narrative * Chely Verma PA-C - 04/21/2024 3:21 PM EST The patient has paperwork for disability that are requesting to know his abilities. We will order an FCE for the patient to help him obtain this information. documented in this encounterFirelands Regional Medical [facility]02-17-2025 Telephone encounter Note * Telephone Encounter - Franny Dupree - 04/20/2024 2:13 PM EST I left a message to schedule a procedure. Franny Dupree April 20, 2024 2:14 PM [facility]02-17-2025 Miscellaneous Notes* Telephone Encounter - Franny Dupree - 04/20/2024 2:13 PM EST I left a message to schedule a procedure. Franny Dupree April 20, 2024 2:14 PM documented in this encounterFirelands Regional Medical [facility]02-05-2025 Instructions* Patient Instructions* Robin Enamoardo MD - 04/08/2024 8:51 AM EST - Continue taking Gabapentin 300 mg three times a day as prescribed. - Continue taking Levothyroxine (Synthroid) daily, with two pills on Sundays. - Continue taking Tizanidine as prescribed. - Maintain regular use of your CPAP machine; a prescription for supplies has been sent to [facility]. - Stay hydrated and ensure adequate electrolyte intake by consuming fruits and vegetables. - Get sufficient sleep to help reduce heart palpitations. - Schedule an appointment with a upstream biomanufacturing technician to further evaluate heart palpitations and discuss potential treatments or additional tests. documented in this encounterFirelands Regional Medical [facility]02-05-2025 NoteHNO ID: [id number] Author: ROBIN ENAMORADO MD Service: ? Author Type: Physician Type: Progress Notes Filed: 04/08/2024 08:54 Note Text: This note was created using Netscaperiter. Subjective Chely Samayoa is a 48 year [...] % 46.3 45.4 44.0 (more content not included)...[facility]02-05-2025 History of Present illness Narrative* [...] reassurance. - Recommended cardiologists: Dr. Rosales in [place] or Dr. Stevens at [facility]. - Advised on lifestyle modifications: adequate hydration, balanced electrolyte intake, stress management, and sufficient sleep to minimize palpitations. # Myofascial pain syndrome (M79.18) - Managed with tizanidine 270 tablets with refills and gabapentin 3 times daily. - Refilled prescriptions for tizanidine and gabapentin. 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 Franny Dupree April 01, 2024 3:28 PM [facility]01-29-2025 Miscellaneous Notes* Telephone Encounter - Franny Dupree - 04/01/2024 3:28 PM EST I left a message to schedule a procedure. Franny Dupree April 01, 2024 3:28 PM documented in this encounterFirelands Regional Medical Center [facility]01-29-2025 NoteHNO ID: [id number] Author: CHRIS CLEVELAND MD Service: ? Author [...] result) Impression: IMPRESSION: No acute osseous abnormality. Molder Operator: CARLA Transcribe Date/Time: Oct 05 2023 11:51A... Most recent urine drug screen reviewed. Repeat today PDMP report appropriate. Patient does not fill prescription every 30 days Other Diagnostic Studies: IMPRESSION: (G83.81) Brown-Sequard syndrome (HCC) (primary encounter diagnosis) (M51.362) Degeneration of intervertebral disc of lumbar region with discogenic back pain and lower extremity pain (Z79.899) Other [facility] (current) drug therapy (G89.4) Chronic pain s (more content not included)...[facility] 04-01-2024 History of Present illness Narrative* Chris Celveland MD - 04/01/2024 9:59 AM EST PATIENT: [...] result) Impression: IMPRESSION: No acute osseous abnormality. Molder Operator: CARLA Transcribe Date/Time: Oct 05 2023 11:51A... Most recent urine drug screen reviewed. Repeat today PDMP report appropriate. Patient does not fill prescription every 30 days Other Diagnostic Studies: IMPRESSION: (G83.81) Brown-Sequard syndrome (HCC) (primary encounter diagnosis) (M51.362) Degeneration of intervertebral disc of lumbar region with discogenic back pain and lower extremity pain (Z79.899) Other [facility] (current) drug therapy (G89.4) Chronic pain syndrome [...] diversion suspected. We discussed the risks/benefits of rn long term care opioid use and we have a signed [...] UDS: 10/03/2023 Contract: 06/27/2023 documented in this encounterFirelands Regional Medical [facility]01-29-2025 NoteHNO ID: [id number] Author: INES ZELAYA MA Service: ? Author Type: Flexible Nanny Type: Progress Notes Filed: 04/01/2024 10:06 Note Text: Room 2 Follow up Last UDS: 10/03/2023 Contract: 06/27/2023[facility]01-09-2025 Telephone encounter Note* Telephone Encounter - Laura Zheng RN - 03/12/2024 5:09 PM EST Pt called and is notified of providers message and instructions. Pt voices understanding. He said he might call in tomorrow to have provider put order in. Laura Zheng RN [facility]01-09-2025 Miscellaneous Notes* Telephone Encounter - Laura Zheng [...] one of our cardiologists who come to [place], since they come Mondays and alternate every other week, can take months to get in with them. So if prefers to see F upstream biomanufacturing technician in [facility], recommend file consult order now knowing might [...] thinks he might want to see a upstream biomanufacturing technician. Pt doesn't want to decide right now. States he has an appt with pcp in Apr and plans to discuss it then. * Telephone Encounter - Robin Enamorado MD - 03/12/2024 1:23 AM EST There is no final report (not like [facility] where there is a synopsis of the results and correlation of symptoms with ECG findings and a final report from upstream biomanufacturing technician reading). Thought I would get a [...] next appointment is 04/08/24 documented in this encounterFirelands Regional Medical [facility]01-09-2025 Telephone encounter Note * Telephone Encounter - Robin Enamorado MD - 03/12/2024 2:24 PM EST Noted If he wants to see one of our cardiologists who come to [place], since they come Mondays and alternate every other week, can take months to get in with them. So if prefers to see [facility] upstream biomanufacturing technician in [facility], recommend file consult order now knowing might be 2 to 4 months before can see them. Okay if still prefer to wait ti discuss in April, but should call if symptoms are getting worse so can be seen sooner or triaged for need to be checked at ER. [facility]01-09-2025 Telephone encounter Note* Telephone Encounter - Kushal Jaeger RN - 03/12/2024 8:06 AM EST Phoned pt and reviewed provider's message below. Pt states he kind of understands. Reports he had been having more symptoms in the past week than he did when wearing the monitor, and he thinks he might want to see a upstream biomanufacturing technician. Pt doesn't want to decide right now. States he has an appt with pcp in Apr and plans to discuss it then. [facility]01-09-2025 Telephone encounter Note* Telephone Encounter - Robin Enamorado MD - 03/12/2024 1:23 AM EST There is no final report (not like [facility] where there is a synopsis of the results and correlation of symptoms with ECG findings and a final report from upstream biomanufacturing technician reading). Thought I would get a [...] to determine if further testing needs done. [facility]01-08-2025 Telephone encounter Note* Telephone Encounter - Nicol Wagner LPN - 03/11/2024 5:42 PM EST Printed encounter and routed to Provider. Nicol Wagner LPN [facility]12-31-2024 Telephone encounter Note* Telephone Encounter - Francine Jorgensen LPN - 03/03/2024 11:00 AM EST Patient had an event monitor completed on 11/26/23 that was ordered by PCP. See scanned documents for results. Please review and advise. Patient's next appointment is 04/08/24 [facility]11-07-2024 Instructions* Patient Instructions* Chely Verma PA-C - 01/09/2024 9:43 AM EST The OARRS report has been reviewed and is consistent with the patients medical history and medication intake. The patient underwent a random drug screen at today's office visit. Continue with the tramadol, gabapentin, tizanidine, and baclofen. You can add 8213-2804 mg of tylenol extra per day as [...] Dr. Chris Cleveland MD documented in this encounterFirelands Regional Medical Center [facility]11-07-2024 NoteHNO ID: [id number] Author: CHELY VERMA PA-C Service: ? Author Type: Physician Medical Technologist Type: Progress Notes Filed: 01/09/2024 10:13 Note Text: This note was created using Netscaperiter. 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 10/17/2023 01/09/2024 INTAKE PAIN ASSESSMENT Are you [...] gabapentin, tizanidine, and baclofen. You can add 9554-9409 mg of tylenol extra per day as [...] evaluation. Chely Verma PA-C documented in this encounterFirelands Regional Medical [facility]10-03-2024 Telephone encounter Note * Telephone Encounter - [...] prescription at the pharmacy Chely Verma PA-C [facility]10-03-2024 Miscellaneous Notes* Telephone Encounter - Chely Verma [...] Panel: No results found for: UQCANN, UQBNZL, [id number], UQAMPH, UQMAMP, UQBUPRE, UQNORBUP, UQMTHD, UQEDDP, UQTRAM, UQDTRM, UQFNTL, UQNFTL, UQCODE, UQMORP, UQDCDN, UQHCOD, UQOXYC, UQHMOR, UQOXYM, UQCREA, UQPH, UQSPGR, UQOXID, UQSPQ @FLOW([id number])@ Lab Results Component Value Date SUMM FINAL [...] advise. Treva Samano RN documented in this encounterFirelands Regional Medical [facility]10-03-2024 Telephone encounter Note * Telephone Encounter - [...] Panel: No results found for: UQCANN, UQBNZL, [id number], UQAMPH, UQMAMP, UQBUPRE, UQNORBUP, UQMTHD, UQEDDP, UQTRAM, UQDTRM, UQFNTL, UQNFTL, UQCODE, UQMORP, UQDCDN, UQHCOD, UQOXYC, UQHMOR, UQOXYM, UQCREA, UQPH, UQSPGR, UQOXID, UQSPQ @FLOW([id number])@ Lab Results Component Value Date SUMM FINAL [...] Please review and advise. Treva Samano RN [facility]08-26-2024 Instructions* Patient Education - John Morrow RN - 10/28/2023 12:00 PM EDT Patient educated on 30 day event monitor, and verbalizes understanding. [facility]08-26-2024 Miscellaneous Notes* Patient Education - John Morrow RN - 10/28/2023 12:00 PM EDT Patient educated on 30 day event monitor, and verbalizes understanding. documented in this encounterFirelands [facility]08-26-2024 NoteHNO ID: [id number] Author: JOHN MORROW RN Service: ? Author Type: Registered Nurse Type: Patient Education Filed: 10/28/2023 12:02 Note Text: Patient educated on 30 day event monitor, and verbalizes understanding.[facility]08-15-2024 Surgery Surgical operation note* Operative Report [...] in the office today: Trigger Point Injection(s): (02057) -Informed consent was obtained and all patient [...] 0.25% bupivacaine; distributed equally at each site. [facility] Work Phone: [phone]) 355-600508-15-2024 Surgical operation note* Operative Report - Chris [...] equally at each site. documented in this encounterFirelands Regional Medical [facility]08-01-2024 Instructions* Patient Instructions* Chely Verma PA-C - 10/03/2023 8:59 AM EDT The OARRS report has been reviewed and is consistent with the patients medical history and medication intake. The patient underwent a random drug screen at today's office visit. Continue with the tramadol, gabapentin, tizanidine, and baclofen. You can add 6616-7824 mg of tylenol extra per day as [...] Dr. Chris Cleveland MD documented in this encounterFirelands [facility] Medical [facility]08-01-2024 NoteHNO ID: [id number] Author: CHELY VERMA PA-C Service: ? Author Type: Physician Medical Technologist Type: Progress Notes Filed: 10/03/2023 09:18 Note Text: This note was created using Admeld. Subjective Chely Samayoa is a 48 year [...] gabapentin, tizanidine, and baclofen. You can add 5084-1786 mg of tylenol extra per day as needed. Let us know if you would like to pursue trigger point injections and we will get these scheduled. Continue usin (more content not included)...[facility]08-01-2024 History of Present illness Narrative* Chely Verma PA-C - 10/03/2023 8:54 AM EDT This note was created using WhatsAppter. Subjective Chely Samayoa is a 48 year [...] gabapentin, tizanidine, and baclofen. You can add 9779-9059 mg of tylenol extra per day as [...] - TOXASSURE FLEX 23, URINE 3. Other rn long term care (current) drug therapy - ICD9: V58.69, ICD10: [...] TABLET Chely Verma PA-C documented in this encounterFirelands [facility] Medical [facility]07-31-2024 History of Present illness Narrative* Inge Burton [...] PATIENT PRESENTS WITH AN IMPLANTABLE OR ATTACHED SERVICE STATION OPERATOR: No RADIOLOGY DEPARTMENT: General X-ray: Exam(s) Completed: Lower Extremity X- Ray(s): Knee, AP / LAT Bilateral PERIPHERAL IV DATA: Not applicable SIGNED BY: RT Cristian(R) October 02, 2023 9:39 AM documented in this encounterFirelands [facility] Medical [facility]07-31-2024 NoteHNO ID: [id number] Author: INGE BURTON RT(Fanny) Service: Radiology Author [...] PATIENT PRESENTS WITH AN IMPLANTABLE OR ATTACHED SERVICE STATION OPERATOR: No RADIOLOGY DEPARTMENT: General X-ray: Exam(s) Completed: Lower Extremity X-Ray(s): Knee, AP / LAT Bilateral PERIPHERAL IV DATA: Not applicable SIGNED BY: RT Cristian(R) October 02, 2023 9:39 [facility]07-31-2024 NoteHNO ID: [id number] Author: ROBIN ENAMORADO MD Service: ? Author Type: Physician Type: Progress Notes Filed: 10/02/2023 12:11 Note Text: This note was created using WhatsAppter. Subjective Chely Samayoa is a 48 year [...] PMANDR provider tomorrow 2. Intermittent palpitations R00.2 51Talk EVENT MONITOR COMPLETE BLOOD COUNT COMPREHENSIVE METABOLIC PANEL MAGNESIUM Sometimes associated with SOB.Sounds like ectopy with pause. No syncope or near syncope.Re-ordered Juan Francisco of [employer] event monitor. Further eval and tx prn 3. Acquired hypothyroidism E03.9 THYROID STIMULATING HORMONE T4 FREE/FREE THYROXINE T3, FREE Clinically euthyroid. Labs for follow up. Stay on same dose 4. ANTONETTE on CPAP G47.33 (more content not included)...[facility] 10-02-2023 History of Present illness Narrative* Robin Enamorado MD - 10/02/2023 8:11 AM EDT This note was created using Netscaperiter. Subjective Chely Samayoa is a 48 year [...] PM&R provider tomorrow 2. Intermittent palpitations R00.2 51Talk EVENT MONITOR COMPLETE BLOOD COUNT COMPREHENSIVE METABOLIC PANEL MAGNESIUM Sometimes associated with SOB.Sounds like ectopy with pause. No syncope or near syncope.Re-ordered Present event monitor. Further eval and tx prn [...] indicated. Robin Enamorado MD documented in this encounterFirelands [facility] Medical [facility]06-06-2024 History of Present illness Narrative* Chely Verma PA-C - 08/08/2023 9:15 AM EDT This note was created using WhatsAppter. Subjective Chely Samayoa is a 48 year [...] xrays were approximately 3+ years ago at [facility]. 06/27/2023 08/08/2023 INTAKE PAIN ASSESSMENT Are [...] M79.18 Chely Verma PA-C documented in this encounterFirelands [facility] Medical [facility]06-06-2024 Instructions* Patient Instructions* Chely Verma PA-C - 08/08/2023 9:11 AM EDT The OARRS report has been reviewed and is consistent with the patients medical history and medication intake. Continue with the tramadol, gabapentin, tizanidine, and baclofen. You can add 2702-7204 mg of tylenol extra per day as [...] seen at this time. documented in this encounterFirelands Regional Medical [facility]05-06-2024 Telephone encounter Note * Telephone Encounter - Khadra Garza RN - 07/08/2023 9:21 AM EDT Pt called and asking for medrol dose pack. He noted that his pain is increased in his back on the right and left side. The pain started on Saturday. Please advise. Khadra Garza RN July 08, 2023 9:22 AM [facility]05-06-2024 Miscellaneous Notes* Telephone Encounter - Khadra Garza RN - 07/08/2023 9:21 AM EDT Pt called and asking for medrol dose pack. He noted that his pain is increased in his back on the right and left side. The pain started on Saturday. Please advise. Khadra Garza RN July 08, 2023 9:22 AM documented in this encounterFirelands [facility] Medical [facility]04-25-2024 History of Present illness Narrative* Chely Verma PA-C - 06/27/2023 9:15 AM EDT This note was created using Netscaperiter. Subjective Chely Samayoa is a 48 year [...] bilaterally, right > left. He has seen [facility] in the past for this and [...] M79.18 Chely Verma PA-C documented in this encounterFirelands [facility] Medical [facility]04-25-2024 Instructions* Patient Instructions* Chely Verma PA-C - [...] seen at this time. documented in this encounterFirelands Regional Medical [facility]03-14-2024 Instructions* Patient Instructions* Chely Verma PA-C - [...] seen at this time. documented in this encounterFirelands Regional Medical [facility]03-14-2024 History of Present illness Narrative* Chely Verma PA-C - 05/16/2023 9:04 AM EDT This note was created using Netscaperiter. Subjective Chely Samayoa is a 48 year [...] M79.18 Chely Verma PA-C documented in this encounterFirelands [facility] Medical [facility]01-30-2024 Instructions* Patient Instructions* Robin Enamorado MD - 04/02/2023 8:27 AM EST [place] gel--tube and spray. Saline for congestion documented in this encounterFirelands Regional Medical [facility]01-30-2024 History of Present illness Narrative* Robin Enamorado MD - 04/02/2023 8:08 AM EST This note was created using Admeld. Subjective Chely Samayoa is a 47 year [...] stay clinically euthyroid 2. Intermittent palpitations R00.2 51Talk EVENT MONITOR Feels like skipping beats and [...] the date of the service which included [id number] patient care, completing clinical documentation, obtaining and/or reviewing separately obtained history, performing a medically appropriate examination, counseling and educating the patient/family/caregiver, ordering medications, tests, or procedures, independently interpreting results (not separately reported), and communicating results to the patient/family/caregiver. Robin Enamorado MD documented in this encounterFirelands [facility] Medical [facility]12-28-2023 History of Present illness Narrative* Karyn Sinha [...] 28, 2023 10:49 AM documented in this encounterFirelands [facility] Medical [facility]10-06-2023 Miscellaneous Notes* Telephone Encounter - Chely Verma [...] De La O RN documented in this encounterFirelands Regional Medical Center [facility]09-21-2023 Instructions* Patient Instructions* Chely Verma PA-C - [...] seen at this time. documented in this encounterFirelands Regional Medical [facility]09-21-2023 History of Present illness Narrative* Chely Verma PA-C - 11/22/2022 8:52 AM EDT This note was created using WhatsAppter. Subjective Chely Samayoa is a 47 year [...] F11.20 Chely Verma PA-C documented in this encounterFirelands [facility] Medical [facility]08-10-2023 Instructions* Patient Instructions* Chely Verma PA-C - [...] seen at this time. documented in this encounterFirelands [facility] Medical [facility]08-10-2023 History of Present illness Narrative* Chely Verma PA-C - 10/11/2022 8:56 AM EDT This note was created using Admeld. Subjective Chely Samayoa is a 47 year [...] - ICD9: 304.00, ICD10: F11.20 6. Other chcf (current) drug therapy - ICD9: V58.69, ICD10: Z79.899 - TOXASSURE FLEX 23, URINE Chely Verma PA-C documented in this encounterFirelands [facility] Medical [facility]04-24-2023 Miscellaneous Notes* Telephone Encounter - Chely Verma [...] advise. Francine Jorgensen LPN documented in this encounterFirelands [facility] Medical [facility]02-23-2023 Instructions* Patient Instructions* Chely Verma PA-C - [...] and quality of life documented in this encounterFirelands Regional Medical [facility]02-23-2023 History of Present illness Narrative* Chely Verma PA-C - 04/26/2022 9:00 AM EST Images from the original note were not included. This note was created using Netscaperiter. Subjective Chely Samayoa is a 47 year [...] he went to the ER after a color grinder wheel exploded and cut his face [...] - ICD9: 354.2, ICD10: G56.22 5. Other chcf (current) drug therapy - ICD9: V58.69, ICD10: Z79.899 - DRUG SCR TOXASURE Chely Verma PA-C documented in this encounterFirelands [facility] Medical [facility]02-21-2023 Instructions* Patient Instructions* Jose Lewis MD - [...] to assess BM progress documented in this encounterFirelands Regional Medical [facility]02-21-2023 Nurse Note* Ariela Carbajal RN - 04/24/2022 [...] doctor?no Ariela Carbajal RN documented in this encounterFirelands Regional Medical [facility]02-21-2023 History of Present illness Narrative* Jose Lewis MD - 04/24/2022 2:30 PM EST Images from the original note were not included. PM&R/SCI Medicine Attending Outpatient Note Name: Chely Samayoa [id number] Date of Service: 04/24/22 Last Visit: 04/29/20 [...] and cervical SCI. He was treated at [facility] where he was found to have a [...] crossfire T-6 manual wheelchair with varilite cushion. 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 Objective Physical Exam: Blood pressure 121/80, pulse [...] Injury Medicine Attending Physical Medicine & Rehabilitation [phone] documented in this encounterFirelands Regional Medical [facility]02-07-2023 History of Present illness Narrative* Vandana Taylor PA-C - 04/10/2022 3:11 PM EST Department of Plastic Surgery New Patient Note REASON FOR CONSULT: ED follow up facial laceration. HPI: Mr. Samayoa is a 46 year old male who presents with ED follow up after facial laceration repair. On 03/29/22 he had a left eye injury when he was using an angle color grinder when the disc exploded and hit [...] ANTONETTE (obstructive sleep apnea) DME [place] [facility] hliario dermatitis has had bad bouts in the [...] call with any questions. documented in this encounterFirelands [facility] Medical [facility]01-31-2023 Miscellaneous Notes* Telephone Encounter - Robin Enamorado [...] doing this. Week, month? documented in this encounterFirelands Regional Medical [facility]01-26-2023 Miscellaneous Notes* Telephone Encounter - Regla Ac - 03/29/2022 12:15 PM EST Mr. Samayoa called the office and he would like to be rescheduled to [facility] [place] for a sooner appointment on 04/24/2022 at 2:30 PM. Message sent to the PMR Schedulers. documented in this encounterFirelands Regional Medical [facility]01-12-2023 Instructions* Patient Instructions* Chely Verma PA-C - [...] seen at this time. documented in this encounterFirelands Regional Medical [facility]01-12-2023 History of Present illness Narrative* Chely Verma PA-C - 03/15/2022 9:15 AM EST This note was created using Netscaperiter. Subjective Chely Samayoa is a 46 year [...] G89.29 Chely Verma PA-C documented in this encounterFirelands Regional Medical [facility]01-10-2023 Miscellaneous Notes* Telephone Encounter - Nicol Wagner LPN - 03/13/2022 1:30 PM EST Faxed request for 90 day PAP compliance report to [place]. Nicol Wagner LPN documented in this encounterFirelands Regional Medical [facility]01-10-2023 History of Present illness Narrative* Robin Enamorado MD - 03/13/2022 12:08 PM EST This note was created using Netscaperiter. Subjective Chely Samayoa is a 46 year [...] possible,. Robin Enamorado MD documented [facility] this [facility]12-16-2022 Miscellaneous Notes* Telephone Encounter - Chely [...] De La O RN documented [facility] this [facility]11-28-2022 Miscellaneous Notes* Telephone Encounter - Chely [...] De La O, RN documented in this encounterFirelands Regional Medical [facility]11-28-2022 Instructions* Patient Instructions* Ulises Pena MD - [...] in 6 weeks time. documented in this encounterFirelands Regional Medical [facility]11-28-2022 History of Present illness Narrative* Ulises Pena MD - 01/29/2022 8:50 AM EST This note was created using Admeld. Subjective Chely Samayoa is a 46 year [...] errors. Ulises Pena MD documented in this encounterFirelands [facility]08-11-2022 Instructions* Patient Instructions* Chely Verma PA-C - [...] seen at this time. documented in this encounterFirelands [facility]08-11-2022 History of Present illness Narrative* Chely Verma PA-C - 10/12/2021 9:15 AM EDT This note was created using Netscaperiter. Subjective Chely Samayoa is a 46 year [...] - Intervention/Comfort measure - - Pain Assessment (RN/NATURAL GAS PLANT SUPERVISOR) - - HPI Review of Systems Constitutional: [...] G89.29 - DRUG SCR TOXASURE 5. Other chcf (current) drug therapy - ICD9: V58.69, ICD10: Z79.899 - DRUG SCR TOXASURE Chely Verma PA-C documented in this encounterFirelands [facility]07-14-2022 Miscellaneous Notes* Telephone Encounter - Kelly De La O RN - 09/14/2021 3:11 PM EDT Patient phones requesting refills as follows: Pending Prescriptions Disp Refills BACLOFEN 20 MG TABLET 120 tablet 3 Sig: Take 1 tablet by mouth four times daily. MICHELLE: No Please review and advise. Kelly De La O RN documented in this encounterFirelands [facility] Medical [facility]06-20-2022 History of Present illness Narrative* Tiffanieadithya Anthony, SPECIAL DISTRIBUTION CLERK.FORTUNE COOKIE MAKER - 08/21/2021 8:45 AM EDT SUBJECTIVE: HEPATITIS [...] pain management Dr. Onofre pain medicine in [place]. Imaging such as MRI has been discussed but not yet completed. He reports he does not have a mental health program specialist currently. Hypothyroidism He is doing well [...] symptoms. He continues to note this. His automotive design layout drafter thought this may have been muscle spasm. Chely Samayoa is unable to feel with his hands so is unsure if these are muscle spasms. Following with sleep medicine for obstructive sleep apnea. Today reports that he continues to follow-up with physical medicine and pain management. Options for back pain discussed, has not yet proceeded.Holding off on seeing mental health program specialist for now. GERD stable, no current [...] Dr. Serrato or preferred - CONSULT TO [facility] 2.. Gastroesophageal reflux disease [...] 6 mo follow up MD Tiffanie Beebe APRN.FORTUNE COOKIE MAKER Medical Decision Making: Problems: Moderate: 2+ stable chronic illnesses Data: Unique test(s) ordered: 3+ Risk: Moderate: Drug management Medical Decision Making Level: 4 - Moderate documented in this encounterFirelands [facility]05-27-2022 Miscellaneous Notes* Telephone Encounter - Ruby Shin - 07/28/2021 3:47 PM EDT Patient last seen on 04/29/2020 Prescribed on same date. documented in this encounterFirelands Regional Medical [facility]05-27-2022 Miscellaneous Notes* Telephone Encounter - Leonor Naik LPN - 07/28/2021 3:26 PM EDT Patient phones requesting refills as follows: Pending Prescriptions Disp Refills LEVOTHYROXINE 75 MCG TABLET 103 tablet 3 Sig: Take 1 tablet by mouth once daily. except on Sundays, take 2 pills MICHELLE: No BRANT-01/09/21 Labs-11/09/20 NOV-08/21/21 med filled 06/21/20 Please review and advise. Leonor Naik LPN documented in this encounterFirelands [facility]04-19-2022 Miscellaneous Notes* Telephone Encounter - Isaias Sheets Ma - 06/20/2021 8:54 AM EDT Mailed. * Telephone Encounter - Isabelle Diego APRN.CNP - 06/20/2021 7:50 AM EDT Please mail letters to patient for handicap renetta Diego APRN.CNP documented in this encounterFirelands [facility]05-16-2008 History of Past illness Narrative* Problem Noted Date Resolved Date Cellulitis and abscess of toe 07/18/2007 documented as of this encounter (statuses as of 05/26/2021) [facility] History of Past illness Narrative* Problem Noted Date Resolved Date Cellulitis and abscess of toe 07/18/2007 documented as of this encounter (statuses as of 06/20/2021) [facility] History of Past illness Narrative* Problem Noted Date Resolved Date Cellulitis and abscess of toe 07/18/2007 documented as of this encounter (statuses as of 07/07/2021) [facility] History of Past illness Narrative* Problem Noted Date Resolved Date Cellulitis and abscess of toe 07/18/2007 documented as of this encounter (statuses as of 07/28/2021) [facility] History of Past illness Narrative* Problem Noted Date Resolved Date Cellulitis and abscess of toe 07/18/2007 documented as of this encounter (statuses as of 08/01/2021) [facility] of Past illness Narrative* Problem Noted Date Resolved Date Cellulitis and abscess of toe 07/18/2007 documented as of this encounter (statuses as of 08/18/2021) [facility] of Past illness Narrative* Problem Noted Date Resolved Date Cellulitis and abscess of toe 07/18/2007 documented as of this encounter (statuses as of 08/21/2021) [facility] of Past illness Narrative* Problem Noted Date Resolved Date Cellulitis and abscess of toe 07/18/2007 documented as of this encounter (statuses as of 09/14/2021) [facility] of Past illness Narrative* Problem Noted Date Resolved Date Cellulitis and abscess of toe 07/18/2007 documented as of this encounter (statuses as of 10/12/2021) [address]16-2008 History of Past illness Narrative* Problem Noted Date Resolved Date Cellulitis and abscess of toe 07/18/2007 documented as of this encounter (statuses as of 01/29/2022) [facility] of Past illness Narrative* Problem Noted Date Resolved Date Cellulitis and abscess of toe 07/18/2007 documented as of this encounter (statuses as of 01/30/2022) [facility] of Past illness Narrative* Problem Noted Date Resolved Date Cellulitis and abscess of toe 07/18/2007 documented as of this encounter (statuses as of 02/16/2022) [facility] of Past illness Narrative* Problem Noted Date Resolved Date Cellulitis and abscess of toe 07/18/2007 documented as of this encounter (statuses as of 03/13/2022) [facility] illness Narrative* Problem Noted Date Resolved Date Cellulitis and abscess of toe 07/18/2007 documented as of this encounter (statuses as of 03/13/2022) [address]16[address]2008 History of Past illness Narrative* Problem Noted Date Resolved Date Cellulitis and abscess of toe 07/18/2007 documented as of this encounter (statuses as of 03/15/2022) [facility] illness Narrative* Problem Noted Date Resolved Date Cellulitis and abscess of toe 07/18/2007 documented as of this encounter (statuses as of 03/29/2022) [address]16[address]2008 History of Past illness Narrative* Problem Noted Date Resolved Date Cellulitis and abscess of toe 07/18/2007 documented as of this encounter (statuses as of 04/04/2022) [facility] of [facility] illness Narrative* Problem Noted Date Resolved Date Cellulitis and abscess of toe 07/18/2007 documented as of this encounter (statuses as of 04/11/2022) [facility] of [facility] illness Narrative* Problem Noted Date Resolved Date Cellulitis and abscess of toe 07/18/2007 documented as of this encounter (statuses as of 2022) [facility] Narrative* Problem Noted Date Resolved Date Cellulitis and abscess of toe 07/18/2007 documented as of this encounter (statuses as of 04/25/2022) [facility] Narrative* Problem Noted Date Resolved Date Cellulitis and abscess of toe 07/18/2007 documented as of this encounter (statuses as of 04/26/2022) [address]16[address] History of Past illness Narrative* Problem Noted Date Resolved Date Cellulitis and abscess of toe 07/18/2007 documented as of this encounter (statuses as of 06/25/2022) [facility] Narrative* Problem Noted Date Diagnosed Date Resolved Date Cellulitis and abscess of toe 07/18/2007 06/05/2017 documented as of this encounter (statuses as of 10/11/2022) [facility] Narrative* Problem Noted Date Diagnosed Date Resolved Date Cellulitis and abscess of toe 07/18/2007 06/05/2017 documented as of this encounter (statuses as of 11/22/2022) [facility] Narrative* Problem Noted Date Diagnosed Date Resolved Date Cellulitis and abscess of toe 07/18/2007 06/05/2017 documented as of this encounter (statuses as of 12/08/2022) [facility] Narrative* Problem Noted Date Diagnosed Date Resolved Date Cellulitis and abscess of toe 07/18/2007 06/05/2017 documented as of this encounter (statuses as of 05/03/2023) [facility] Narrative* Problem Noted Date Diagnosed Date Resolved Date Cellulitis and abscess of toe 07/18/2007 06/05/2017 documented as of this encounter (statuses as of 05/16/2023) [facility]Eval[facility]* Diagnosis Acquired hypothyroidism Unspecified hypothyroidism documented in this encounter [facility]* Diagnosis Chronic incomplete quadriplegia (HCC)- Primary [...] for lipid disorders documented in [facility] encounter [facility] [facility]* Diagnosis Chronic incomplete quadriplegia (HCC)- 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 Lesion of ulnar nerve Chronic midline low back pain without sciatica Other rn long term care (current) drug therapy [facility] 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 [facility] Chronic incomplete quadriplegia (HCC)- 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 Lesion of ulnar nerve Chronic midline low back pain without sciatica documented [facility] Diagnosis Brown-Sequard syndrome (HCC) Other specified [...] with left-sided sciatica [facility] 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 Chronic incomplete quadriplegia (HCC) Lesion of left ulnar nerve Lesion of ulnar nerve Chronic midline low back pain without sciatica [facility] Diagnosis Facial laceration, initial encounter- Primary [facility] Diagnosis Quadriplegia, C1-C4, incomplete (HCC)- Primary Quadriplegia, C1-C4, incomplete Neurogenic bowel Neurogenic bladder Neurogenic bladder, NOS NATONETTE (obstructive sleep apnea) Obstructive sleep apnea (adult) (pediatric) Neuropathic pain Neuralgia, neuritis, and radiculitis, unspecified Neurologic gait dysfunction Abnormality of gait At risk for diabetes mellitus Other specified conditions influencing health status At risk for osteoporosis Other specified conditions influencing health status Ejaculatory disorder Other specified disorder of male genital organs [facility] Diagnosis Chronic midline low back pain without sciatica- 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 Chronic incomplete quadriplegia (HCC) Lesion of left ulnar nerve Lesion of ulnar nerve Other [facility] (current) drug therapy [facility] 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 [facility] Diagnosis Chronic midline low back pain without sciatica- 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 Chronic incomplete quadriplegia (HCC) Lesion of left ulnar nerve Lesion of ulnar nerve Opioid dependence, uncomplicated (HCC) Other rn long term care (current) drug therapy [facility] 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 Chronic incomplete quadriplegia (HCC) Lesion of left ulnar nerve Lesion of ulnar nerve Chronic midline low back pain without sciatica Opioid dependence, uncomplicated (HCC) 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 [facility] Diagnosis Acquired hypothyroidism- Primary Unspecified hypothyroidism Intermittent palpitations Encounter for long-term current use of medication Encounter for immunization Need for other specified prophylactic vaccination against single bacterial disease [facility] Diagnosis Degeneration of lumbar intervertebral disc- Primary Degeneration of lumbar or lumbosacral intervertebral disc Lumbar spondylosis Lumbosacral spondylosis without myelopathy 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 Chronic incomplete quadriplegia (HCC) Lesion of left ulnar nerve Lesion of ulnar nerve Myofascial pain syndrome Mylagia and myositis, unspecified documented [facility] Diagnosis Degeneration of lumbar intervertebral disc- Primary Degeneration of lumbar or lumbosacral intervertebral disc documented [facility] Diagnosis Degeneration of lumbar intervertebral disc- [...] of right knee [facility] Diagnosis Cervical radiculopathy- Primary Brachial neuritis or radiculitis nos Intermittent palpitations Acquired hypothyroidism Unspecified hypothyroidism ANTONETTE on CPAP Obstructive sleep apnea (adult) (pediatric) Encounter for long-term current use of medication Screening for depression Encounter for screening examination for other mental health and behavioral disorders documented [facility] Diagnosis Degeneration of lumbar intervertebral disc- Primary Degeneration of lumbar or lumbosacral intervertebral disc Lumbar spondylosis Lumbosacral spondylosis without myelopathy Other chcf (current) drug therapy Brown-Sequard syndrome (HCC) Other [...] joint, lower leg [facility] Diagnosis Acute cough URI, acute Acute upper respiratory infections of unspecified site [facility] 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 Myofascial pain syndrome Mylagia and myositis, unspecified documented in this encounter [facility]* 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 Degeneration of intervertebral disc of lumbar region with discogenic back pain and lower extremity pain Lumbar spondylosis Lumbosacral spondylosis without myelopathy Myofascial pain syndrome Mylagia and myositis, unspecified Chronic incomplete quadriplegia (HCC) Lesion of left ulnar nerve Lesion of ulnar nerve documented in this encounter [facility] note* 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 Degeneration of intervertebral disc of lumbar region with discogenic back pain and lower extremity pain Other rn long term care (current) drug therapy Chronic pain syndrome Myofascial pain syndrome Mylagia and myositis, unspecified Chronic pain of left knee Pain in joint, lower leg Chronic pain of right knee documented in this encounter [facility] note* Diagnosis Acquired hypothyroidism- Primary Unspecified hypothyroidism Palpitations Myofascial pain syndrome Mylagia and myositis, unspecified 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 Premature atrial contractions Supraventricular premature beats Bradycardia Other specified cardiac dysrhythmias [facility] 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 Degeneration of intervertebral disc of lumbar region with discogenic back pain and lower extremity pain Lumbar spondylosis Lumbosacral spondylosis without myelopathy Myofascial pain syndrome Mylagia and myositis, unspecified Chronic incomplete quadriplegia (HCC) Lesion of left ulnar nerve Lesion of ulnar nerve documented [facility]* 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 [facility]* Diagnosis Chronic incomplete quadriplegia (HCC)- Primary [facility] Diagnosis Spinal stenosis of lumbar region, unspecified whether neurogenic claudication present- Primary [facility]* Diagnosis Spinal stenosis of lumbar region, unspecified whether neurogenic claudication present documented [facility] this [facility]* Diagnosis Spinal stenosis of lumbar region, [...] or radiculitis, unspecified [facility]* Diagnosis Chronic incomplete quadriplegia (HCC)- Primary [...] or radiculitis, unspecified [facility] this [facility]* Diagnosis Spinal stenosis of cervical region Spinal stenosis in cervical region 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 Spinal stenosis of lumbar region, unspecified whether neurogenic claudication present Degeneration of intervertebral disc of lumbar region with lower extremity pain Lumbar radiculopathy Thoracic or lumbosacral neuritis or radiculitis, unspecified [facility]* Diagnosis Weakness of right lower extremity- Primary Spinal stenosis of lumbar region, unspecified whether neurogenic claudication present Degeneration of intervertebral disc of lumbar region with lower extremity pain Lumbar radiculopathy Thoracic or lumbosacral neuritis or radiculitis, unspecified documented in this encounter [facility]* Diagnosis Neurogenic bladder- Primary Neurogenic bladder, [...] or radiculitis, unspecified [facility] Diagnosis Neurogenic bladder- Primary Neurogenic bladder, NOS Erectile dysfunction, unspecified erectile dysfunction type 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 Screening for malignant neoplasm of prostate Prostate cancer screening Special screening for malignant neoplasm of prostate Screening for genitourinary condition Screening for other and unspecified genitourinary condition documented in this encounter [facility] noteNo assessment information [facility] Work Phone: Evaluation note* Diagnosis Onset Date Resolution Status Admit Date Brown-Sequard syndrome acute Au 2024 9:57am Cervical vertebral fusion acute October 02, 2024 9:57am Foraminal stenosis of lumbar region acute October 02, 2024 9:57am Retrolisthesis acute October 9:57am [facility] Work Phone: Hospital Discharge instructionsAdditional Instructions [facility] pain management doctor [facility] Work Phone: Reason for referral (narrative)* Diagnostic Procedure Only (Routine) - Pending Review Specialty Diagnoses / Procedures Referred By Contac t Referred To Contact XR IMAGING Diagnoses Chronic pain of right knee Procedures XR KNEE LIMITED 2V AP/LAT RIGHT RADIOLOGIC EXAMINATION KNEE 1/2 VIEWS Chely Verma PA-C [address] [place] [address] [place] [address] Referral ID Status Reason Start Date Expiration Date Visits Requested Visits Authorized [id number] Pending Review Auto-Generat ed Referral 08/08/2023 09/06/2024 1 1 * Diagnostic Procedure Only (Routine) - Pending Review Specialty Diagnoses / Procedures Referred By Contac t Referred To Contact XR IMAGING Diagnoses Chronic pain of left knee Procedures XR KNEE LIMITED 2V AP/LAT LEFT RADIOLOGIC EXAMINATION KNEE 1/2 VIEWS Chely Verma PA-C [address] [place] [address] [place] [address] Referral ID Status Reason Start Date Expiration Date Visits Requested Visits Authorized [id number] Pending Review Auto-Generat ed Referral 08/08/2023 09/06/2024 1 1 [facility] for referral (narrative)* Diagnostic Procedure Only (Routine) - Closed Specialty Diagnoses / Procedures Referred By Contac t Referred To Contact XR IMAGING Diagnoses Chronic pain of left knee Procedures XR KNEE LIMITED 2V AP/LAT LEFT RADIOLOGIC EXAMINATION KNEE 1/2 VIEWS Chely Verma PA-C [address] [place] [address] [place] [address] Referral ID Status Reason Start Date Expiration Date V isits Requested Visits Authorized [id number] Closed Auto-Generate d Referral 08/08/2023 09/06/2024 1 1 * Diagnostic Procedure Only (Routine) - Closed Specialty Diagnoses / Procedures Referred By Contac t Referred To Contact XR IMAGING Diagnoses Chronic pain of right knee Procedures XR KNEE LIMITED 2V AP/LAT RIGHT RADIOLOGIC EXAMINATION KNEE 1/2 VIEWS Chely Verma PA-C [address] [place] [address] [place] [address] Referral ID Status Reason Start Date Expiration Date V isits Requested Visits Authorized [id number] Closed Auto-Generate d Referral 08/08/2023 09/06/2024 1 1 [facility] for referral (narrative)No reason for referral information [facility] Work Phone: [place] for visit Narrative* Diagnostic Procedure Only (Routine) - Closed Specialty Diagnoses / Procedures Referred By Contac t Referred To Contact XR IMAGING Diagnoses Chronic pain of right knee Procedures XR KNEE LIMITED 2V AP/LAT RIGHT RADIOLOGIC EXAMINATION KNEE 1/2 VIEWS Chely Verma PA-C [address] [place] [address] [place] [address] Referral ID Status Reason Start Date Expiration Date V isits Requested Visits Authorized [id number] Closed Auto-Generate d Referral 08/08/2023 09/06/2024 1 1 [facility] for visit Narrative* Auth/Cert (Routine) Specialty Diagnoses / Procedures Referred By Contac t Referred To Contact Diagnoses Myofascial pain syndrome Myofascial pain syndrome [M79.18] Procedures TRIGGER POINT INJECTION MULTI 3+ MUSCLE GRP INJECTION TRIGGER POINT THREE OR MORE MUSCLES PAIN ZULMA PROCEDURES [address] [place] [address] Phone: tel: fax: Referral ID Status Reason Start Date Expiration Date Visits Re quested Visits Authorized [id number] 1 1 [facility] for visit Narrative* MRI/CT (Routine) - Closed Specialty Diagnoses / Procedures Referred By Contac t Referred To Contact MR IMAGING Diagnoses Spinal stenosis of lumbar region, unspecified whether neurogenic claudication present Procedures MRI LUMBAR SPINE WO IVCON MRI SPINAL CANAL LUMBAR W/O CONTRAST MATERIAL Chely Verma PA-C [address] [place] [address] Phone: tel: fax: MR IMAGING [id number] Referral ID Status Reason Start Date Expiration Date V isits Requested Visits Authorized [id number] Closed Auto-Generate d Referral 07/20/2024 08/19/2025 1 1 [facility] for visit Narrative* MRI/CT (Routine) - Closed Specialty Diagnoses / Procedures Referred By Contac t Referred To Contact MR IMAGING Diagnoses Spinal stenosis of cervical region Procedures MRI CERVICAL SPINE WO IVCON MRI SPINAL CANAL CERVICAL W/O CONTRAST TRISTANL Ainsley Alfonso PA-C [address] [place] [address] Phone: tel: fax: [place] [id number] Referral ID Status Reason Start Date Expiration Date V isits Requested Visits Authorized [id number] Closed Auto-Generate d Referral 09/02/2024 10/02/2025 1 1 [facility] Summary Purpose Family History Relationship Condition Age at Onset Recorded Date/T ju Not Specified Hypertension Unknown father Diabetes mellitus Unknown grandmother Cardiac disease Unknown brother Malignant neoplasm Unknown grandfather Malignant neoplasm Unknown Advance Directives Advance Directive Response Recorded Date/ Time Do you have a Healthcare Power of Funeral Prearrangement Counselor? No October 06, 2024 11:34am Reason for Referral Specialty Diagnoses / Procedures Referred By Anil t Referred To Contact Cardiology Diagnoses Palpitations Procedures CONSULT TO CARDIOLOGY OFFICE/OUTPATIENT [facility] 60 MINUTES Robin Enamorado MD [address] [place] [address] Referral ID Status Reason Start Date Expiration Date Visits Requested Visits Authorized [id number] Authorized PCP Requested Referral 04/08/2024 04/08/2025 1 [...] section and content) DATE CREATED AUTHOR 10/16/2017 [facility] DATE CREATED AUTHOR AUTHOR'S ORGANIZ ATION 10/29/2023 [facility] DATE CREATED AUTHOR AUTHOR'S ORGANIZ ATION 01/05/2024 [facility] DATE CREATED AUTHOR AUTHOR'S ORGANIZ ATION 06/24/2024 [facility] DATE CREATED AUTHOR AUTHOR'S ORGANIZ ATION 09/24/2024 [facility] DATE CREATED AUTHOR AUTHOR'S ORGANIZ ATION 09/25/2024 [facility] DATE CREATED AUTHOR AUTHOR'S ORGANIZ ATION 10/04/2024 [facility] Source Comments (unrecognize d section and content) In the event this informatio n is protected by the Federal Confidentiality of Alcohol and Drug Abuse Patient Records regulations: The Federal rules restrict any use of the information to criminally investigate or prosecute any alcohol or drug abuse patient.[facility] the event this information is protected by the Federal Confidentiality of Alcohol and Drug Abuse Patient Records regulations: The Federal rules restrict any use of the information to criminally investigate or prosecute any alcohol or drug abuse patient.[facility] the event this information is protected by the Federal Confidentiality of Alcohol and Drug Abuse Patient Records regulations: The Federal rules restrict any use of the information to criminally investigate or prosecute any alcohol or drug abuse patient.[facility] the event this information is protected by the Federal Confidentiality of Alcohol and Drug Abuse Patient Records regulations: The Federal rules restrict any use of the information to criminally investigate or prosecute any alcohol or drug abuse patient.[facility] Campus[facility] the event this information is protected by the Federal Confidentiality of Alcohol and Drug Abuse Patient Records regulations: The Federal rules restrict any use of the information to criminally investigate or prosecute any alcohol or drug abuse patient.[facility] Campus[facility] the event this information is protected by the Federal Confidentiality of Alcohol and Drug Abuse Patient Records regulations: The Federal rules restrict any use of the information to criminally investigate or prosecute any alcohol or drug abuse patient.[facility] CampusIn the event this information is protected by the Federal Confidentiality of Alcohol and Drug Abuse Patient Records regulations: The Federal rules restrict any use of the information to criminally investigate or prosecute any alcohol or drug abuse patient.[facility] Campus[facility] the event this information is protected by the Federal Confidentiality of Alcohol and Drug Abuse Patient Records regulations: The Federal rules restrict any use of the information to criminally investigate or prosecute any alcohol or drug abuse patient.[facility] Campus[facility] the event this information is protected by the Federal Confidentiality of Alcohol and Drug Abuse Patient Records regulations: The Federal rules restrict any use of the information to criminally investigate or prosecute any alcohol or drug abuse patient.[facility] Campus[facility] the event this information is protected by the Federal Confidentiality of Alcohol and Drug Abuse Patient Records regulations: The Federal rules restrict any use of the information to criminally investigate or prosecute any alcohol or drug abuse patient.[facility] Campus[facility] the event this information is protected by the Federal Confidentiality of Alcohol and Drug Abuse Patient Records regulations: The Federal rules restrict any use of the information to criminally investigate or prosecute any alcohol or drug abuse patient.[facility] Campus[facility] the event this information is protected by the Federal Confidentiality of Alcohol and Drug Abuse Patient Records regulations: The Federal rules restrict any use of the information to criminally investigate or prosecute any alcohol or drug abuse patient.[facility] Campus[facility] the event this information is protected by the Federal Confidentiality of Alcohol and Drug Abuse Patient Records regulations: The Federal rules restrict any use of the information to criminally investigate or prosecute any alcohol or drug abuse patient.[facility] CampusIn the event this information is protected by the Federal Confidentiality of Alcohol and Drug Abuse Patient Records regulations: The Federal rules restrict any use of the information to criminally investigate or prosecute any alcohol or drug abuse patient.[facility] CampusIn the event this information is protected by the Federal Confidentiality of Alcohol and Drug Abuse Patient Records regulations: The Federal rules restrict any use of the information to criminally investigate or prosecute any alcohol or drug abuse patient.[facility] CampusIn the event this information is protected by the Federal Confidentiality of Alcohol and Drug Abuse Patient Records regulations: The Federal rules restrict any use of the information to criminally investigate or prosecute any alcohol or drug abuse patient.[facility] CampusIn the event this information is protected by the Federal Confidentiality of Alcohol and Drug Abuse Patient Records regulations: The Federal rules restrict any use of the information to criminally investigate or prosecute any alcohol or drug abuse patient.[facility] CampusIn the event this information is protected by the Federal Confidentiality of Alcohol and Drug Abuse Patient Records regulations: The Federal rules restrict any use of the information to criminally investigate or prosecute any alcohol or drug abuse patient.[facility] CampusIn the event this information is protected by the Federal Confidentiality of Alcohol and Drug Abuse Patient Records regulations: The Federal rules restrict any use of the information to criminally investigate or prosecute any alcohol or drug abuse patient.[facility] CampusIn the event this information is protected by the Federal Confidentiality of Alcohol and Drug Abuse Patient Records regulations: The Federal rules restrict any use of the information to criminally investigate or prosecute any alcohol or drug abuse patient.[facility] CampusIn the event this information is protected by the Federal Confidentiality of Alcohol and Drug Abuse Patient Records regulations: The Federal rules restrict any use of the information to criminally investigate or prosecute any alcohol or drug abuse patient.[facility] CampusIn the event this information is protected by the Federal Confidentiality of Alcohol and Drug Abuse Patient Records regulations: The Federal rules restrict any use of the information to criminally investigate or prosecute any alcohol or drug abuse patient.[facility] CampusIn the event this information is protected by the Federal Confidentiality of Alcohol and Drug Abuse Patient Records regulations: The Federal rules restrict any use of the information to criminally investigate or prosecute any alcohol or drug abuse patient.[facility] CampusIn the event this information is protected by the Federal Confidentiality of Alcohol and Drug Abuse Patient Records regulations: The Federal rules restrict any use of the information to criminally investigate or prosecute any alcohol or drug abuse patient.[facility] CampusIn the event this information is protected by the Federal Confidentiality of Alcohol and Drug Abuse Patient Records regulations: The Federal rules restrict any use of the information to criminally investigate or prosecute any alcohol or drug abuse patient.[facility] CampusIn the event this information is protected by the Federal Confidentiality of Alcohol and Drug Abuse Patient Records regulations: The Federal rules restrict any use of the information to criminally investigate or prosecute any alcohol or drug abuse patient.[facility] CampusIn the event this information is protected by the Federal Confidentiality of Alcohol and Drug Abuse Patient Records regulations: The Federal rules restrict any use of the information to criminally investigate or prosecute any alcohol or drug abuse patient.[facility] CampusIn the event this information is protected by the Federal Confidentiality of Alcohol and Drug Abuse Patient Records regulations: The Federal rules restrict any use of the information to criminally investigate or prosecute any alcohol or drug abuse patient.[facility] CampusIn the event this information is protected by the Federal Confidentiality of Alcohol and Drug Abuse Patient Records regulations: The Federal rules restrict any use of the information to criminally investigate or prosecute any alcohol or drug abuse patient.[facility] CampusIn the event this information is protected by the Federal Confidentiality of Alcohol and Drug Abuse Patient Records regulations: The Federal rules restrict any use of the information to criminally investigate or prosecute any alcohol or drug abuse patient.[facility] CampusIn the event this information is protected by the Federal Confidentiality of Alcohol and Drug Abuse Patient Records regulations: The Federal rules restrict any use of the information to criminally investigate or prosecute any alcohol or drug abuse patient.[facility] CampusIn the event this information is protected by the Federal Confidentiality of Alcohol and Drug Abuse Patient Records regulations: The Federal rules restrict any use of the information to criminally investigate or prosecute any alcohol or drug abuse patient.[facility] CampusIn the event this information is protected by the Federal Confidentiality of Alcohol and Drug Abuse Patient Records regulations: The Federal rules restrict any use of the information to criminally investigate or prosecute any alcohol or drug abuse patient.[facility] CampusIn the event this information is protected by the Federal Confidentiality of Alcohol and Drug Abuse Patient Records regulations: The Federal rules restrict any use of the information to criminally investigate or prosecute any alcohol or drug abuse patient.[facility] CampusIn the event this information is protected by the Federal Confidentiality of Alcohol and Drug Abuse Patient Records regulations: The Federal rules restrict any use of the information to criminally investigate or prosecute any alcohol or drug abuse patient.[facility] CampusIn the event this information is protected by the Federal Confidentiality of Alcohol and Drug Abuse Patient Records regulations: The Federal rules restrict any use of the information to criminally investigate or prosecute any alcohol or drug abuse patient.[facility] CampusIn the event this information is protected by the Federal Confidentiality of Alcohol and Drug Abuse Patient Records regulations: The Federal rules restrict any use of the information to criminally investigate or prosecute any alcohol or drug abuse patient.[facility] CampusIn the event this information is protected by the Federal Confidentiality of Alcohol and Drug Abuse Patient Records regulations: The Federal rules restrict any use of the information to criminally investigate or prosecute any alcohol or drug abuse patient.[facility] CampusIn the event this information is protected by the Federal Confidentiality of Alcohol and Drug Abuse Patient Records regulations: The Federal rules restrict any use of the information to criminally investigate or prosecute any alcohol or drug abuse patient.[facility] CampusIn the event this information is protected by the Federal Confidentiality of Alcohol and Drug Abuse Patient Records regulations: The Federal rules restrict any use of the information to criminally investigate or prosecute any alcohol or drug abuse patient.[facility] CampusIn the event this information is protected by the Federal Confidentiality of Alcohol and Drug Abuse Patient Records regulations: The Federal rules restrict any use of the information to criminally investigate or prosecute any alcohol or drug abuse patient.[facility] CampusIn the event this information is protected by the Federal Confidentiality of Alcohol and Drug Abuse Patient Records regulations: The Federal rules restrict any use of the information to criminally investigate or prosecute any alcohol or drug abuse patient.[facility] CampusIn the event this information is protected by the Federal Confidentiality of Alcohol and Drug Abuse Patient Records regulations: The Federal rules restrict any use of the information to criminally investigate or prosecute any alcohol or drug abuse patient.[facility] CampusIn the event this information is protected by the Federal Confidentiality of Alcohol and Drug Abuse Patient Records regulations: The Federal rules restrict any use of the information to criminally investigate or prosecute any alcohol or drug abuse patient.[facility] CampusIn the event this information is protected by the Federal Confidentiality of Alcohol and Drug Abuse Patient Records regulations: The Federal rules restrict any use of the information to criminally investigate or prosecute any alcohol or drug abuse patient.[facility] CampusIn the event this information is protected by the Federal Confidentiality of Alcohol and Drug Abuse Patient Records regulations: The Federal rules restrict any use of the information to criminally investigate or prosecute any alcohol or drug abuse patient.[facility] CampusIn the event this information is protected by the Federal Confidentiality of Alcohol and Drug Abuse Patient Records regulations: The Federal rules restrict any use of the information to criminally investigate or prosecute any alcohol or drug abuse patient.[facility] CampusIn the event this information is protected by the Federal Confidentiality of Alcohol and Drug Abuse Patient Records regulations: The Federal rules restrict any use of the information to criminally investigate or prosecute any alcohol or drug abuse patient.[facility] CampusIn the event this information is protected by the Federal Confidentiality of Alcohol and Drug Abuse Patient Records regulations: The Federal rules restrict any use of the information to criminally investigate or prosecute any alcohol or drug abuse patient.[facility] CampusIn the event this information is protected by the Federal Confidentiality of Alcohol and Drug Abuse Patient Records regulations: The Federal rules restrict any use of the information to criminally investigate or prosecute any alcohol or drug abuse patient.[facility] CampusIn the event this information is protected by the Federal Confidentiality of Alcohol and Drug Abuse Patient Records regulations: The Federal rules restrict any use of the information to criminally investigate or prosecute any alcohol or drug abuse patient.[facility] CampusIn the event this information is protected by the Federal Confidentiality of Alcohol and Drug Abuse Patient Records regulations: The Federal rules restrict any use of the information to criminally investigate or prosecute any alcohol or drug abuse patient.[facility] CampusIn the event this information is protected by the Federal Confidentiality of Alcohol and Drug Abuse Patient Records regulations: The Federal rules restrict any use of the information to criminally investigate or prosecute any alcohol or drug abuse patient.[facility] CampusIn the event this information is protected by the Federal Confidentiality of Alcohol and Drug Abuse Patient Records regulations: The Federal rules restrict any use of the information to criminally investigate or prosecute any alcohol or drug abuse patient.[facility] CampusIn the event this information is protected by the Federal Confidentiality of Alcohol and Drug Abuse Patient Records regulations: The Federal rules restrict any use of the information to criminally investigate or prosecute any alcohol or drug abuse patient.[facility] CampusIn the event this information is protected by the Federal Confidentiality of Alcohol and Drug Abuse Patient Records regulations: The Federal rules restrict any use of the information to criminally investigate or prosecute any alcohol or drug abuse patient.[facility] CampusIn the event this information is protected by the Federal Confidentiality of Alcohol and Drug Abuse Patient Records regulations: The Federal rules restrict any use of the information to criminally investigate or prosecute any alcohol or drug abuse patient.[facility] CampusIn the event this information is protected by the Federal Confidentiality of Alcohol and Drug Abuse Patient Records regulations: The Federal rules restrict any use of the information to criminally investigate or prosecute any alcohol or drug abuse patient.[facility] CampusIn the event this information is protected by the Federal Confidentiality of Alcohol and Drug Abuse Patient Records regulations: The Federal rules restrict any use of the information to criminally investigate or prosecute any alcohol or drug abuse patient.[facility] CampusIn the event this information is protected by the Federal Confidentiality of Alcohol and Drug Abuse Patient Records regulations: The Federal rules restrict any use of the information to criminally investigate or prosecute any alcohol or drug abuse patient.[facility] CampusIn the event this information is protected by the Federal Confidentiality of Alcohol and Drug Abuse Patient Records regulations: The Federal rules restrict any use of the information to criminally investigate or prosecute any alcohol or drug abuse patient.[facility] CampusIn the event this information is protected by the Federal Confidentiality of Alcohol and Drug Abuse Patient Records regulations: The Federal rules restrict any use of the information to criminally investigate or prosecute any alcohol or drug abuse patient.[facility] CampusIn the event this information is protected by the Federal Confidentiality of Alcohol and Drug Abuse Patient Records regulations: The Federal rules restrict any use of the information to criminally investigate or prosecute any alcohol or drug abuse patient.[facility] CampusIn the event this information is protected by the Federal Confidentiality of Alcohol and Drug Abuse Patient Records regulations: The Federal rules restrict any use of the information to criminally investigate or prosecute any alcohol or drug abuse patient.[facility] CampusIn the event this information is protected by the Federal Confidentiality of Alcohol and Drug Abuse Patient Records regulations: The Federal rules restrict any use of the information to criminally investigate or prosecute any alcohol or drug abuse patient.[facility] CampusIn the event this information is protected by the Federal Confidentiality of Alcohol and Drug Abuse Patient Records regulations: The Federal rules restrict any use of the information to criminally investigate or prosecute any alcohol or drug abuse patient.[facility] CampusIn the event this information is protected by the Federal Confidentiality of Alcohol and Drug Abuse Patient Records regulations: The Federal rules restrict any use of the information to criminally investigate or prosecute any alcohol or drug abuse patient.[facility] CampusIn the event this information is protected by the Federal Confidentiality of Alcohol and Drug Abuse Patient Records regulations: The Federal rules restrict any use of the information to criminally investigate or prosecute any alcohol or drug abuse patient.[facility] CampusIn the event this information is protected by the Federal Confidentiality of Alcohol and Drug Abuse Patient Records regulations: The Federal rules restrict any use of the information to criminally investigate or prosecute any alcohol or drug abuse patient.[facility] CampusIn the event this information is protected by the [facility] [place] [place] Confidentiality of Alcohol and Drug Abuse Patient Records regulations: The Federal rules restrict any use of the information to criminally investigate or prosecute any alcohol or drug abuse patient.[facility] CampusIn the event this information is protected by the Federal Confidentiality of Alcohol and Drug Abuse Patient Records regulations: The Federal rules restrict any use of the information to criminally investigate or prosecute any alcohol or drug abuse patient.[facility] Care Teams (unrecognized sec tion and content) Design Draftsman Relationship Specialty Start Date End Date Robin Enamorado MD [address] [place], [place] [id number] PCP - General Internal Medicine 04/07/12 Design Draftsman Relationship Specialty Start Date End Date Robin Enamorado MD [address] [place], [place] [id number] PCP - General Internal Medicine 04/07/12 Design Draftsman Relationship Specialty Start Date End Date Robin Enamorado MD [address] [place], [place] [id number] PCP - General Internal Medicine 04/07/12 Design Draftsman Relationship Specialty Start Date End Date Robin Enamorado MD [address] [place] [address] PCP - General Internal Medicine 04/07/12 Design Draftsman Relationship Specialty Start Date End Date Robin Enamorado MD [address] [place] [address] PCP - General Internal Medicine 04/07/12 Design Draftsman Relationship Specialty Start Date End Date Robin Enamorado MD [address] [place] [address] PCP - General Internal Medicine 04/07/12 Design Draftsman Relationship Specialty Start Date End Date Robin Enamorado MD [facility] [place] [address] PCP - General Internal Medicine 04/07/12 Design Draftsman Relationship Specialty Start Date End Date Robin Enamorado MD [facility] [place] [address] PCP - General Internal Medicine 04/07/12 Design Draftsman Relationship Specialty Start Date End Date Robin Enamorado MD [facility] [place] [address] PCP - General Internal Medicine 04/07/12 Design Draftsman Relationship Specialty Start Date End Date Robin Enamorado MD [facility] [place] [address] PCP - General Internal Medicine 04/07/12 Design Draftsman Relationship Specialty Start Date End Date Robin Enamorado MD [facility] [place] [address] PCP - General Internal Medicine 04/07/12 Design Draftsman Relationship Specialty Start Date End Date Robin Enamorado MD [facility] [place] [address] PCP - General Internal Medicine 04/07/12 Design Draftsman Relationship Specialty Start Date End Date Robin Enamorado MD [address] [place] [address] PCP - General Internal Medicine 04/07/12 Design Draftsman Relationship Specialty Start Date End Date Robin Enamorado MD [address] [place] [address] PCP - General Internal Medicine 04/07/12 Design Draftsman Relationship Specialty Start Date End Date Robin Enamorado MD [address] [place] [address] PCP - General Internal Medicine 04/07/12 Design Draftsman Relationship Specialty Start Date End Date Robin Enamorado MD [address] [place] [address] PCP - General Internal Medicine 04/07/12 Design Draftsman Relationship Specialty Start Date End Date Robin Enamorado MD [address] [place] [address] PCP - General Internal Medicine 04/07/12 Design Draftsman Relationship Specialty Start Date End Date Robin Enamorado MD [address] [place] [address] PCP - General Internal Medicine 04/07/12 Design Draftsman Relationship Specialty Start Date End Date Robin Enamorado MD [address] [place] [address] PCP - General Internal Medicine 04/07/12 Design Draftsman Relationship Specialty Start Date End Date Robin Enamorado MD [address] [place] [address] PCP - General Internal Medicine 04/07/12 Design Draftsman Relationship Specialty Start Date End Date Robin Enamorado MD [address] [place] [address] PCP - General Internal Medicine 04/07/12 Design Draftsman Relationship Specialty Start Date End Date Robin Enamorado MD [address] [place] [address] PCP - General Internal Medicine 04/07/12 Design Draftsman Relationship Specialty Start Date End Date Robin Enamorado MD [address] [place] [address] PCP - General Internal Medicine 04/07/12 Design Draftsman Relationship Specialty Start Date End Date Robin Enamorado MD [address] [place] [address] PCP - General Internal Medicine 04/07/12 Design Draftsman Relationship Specialty Start Date End Date Robin Enamorado MD [address] [place] [address] PCP - General Internal Medicine 04/07/12 Design Draftsman Relationship Specialty Start Date End Date Robin Enamorado MD [address] [place] [address] PCP - General Internal Medicine 04/07/12 Design Draftsman Relationship Specialty Start Date End Date Robin Enamorado MD [address] [place] [address] PCP - General Internal Medicine 04/07/12 Design Draftsman Relationship Specialty Start Date End Date Robin Enamorado MD [address] [place] [address] PCP - General Internal Medicine 04/07/12 Design Draftsman Relationship Specialty Start Date End Date Robin Enamorado MD [address] [place] [address] PCP - General Internal Medicine 04/07/12 Design Draftsman Relationship Specialty Start Date End Date Robin Enamorado MD [address] [place] [address] PCP - General Internal Medicine 04/07/12 Design Draftsman Relationship Specialty Start Date End Date Robin Enamorado MD [address] [place] [address] PCP - General Internal Medicine 04/07/12 Design Draftsman Relationship Specialty Start Date End Date Robin Enamorado MD [address] [place] [address] PCP - General Internal Medicine 04/07/12 Design Draftsman Relationship Specialty Start Date End Date Robin Enamorado MD [address] [place] [address] PCP - General Internal Medicine 04/07/12 Tiffanie Anthony, SPECIAL DISTRIBUTION CLERK.F[employer]UNE COOKIE MAKER [address] [place] [address] [facility] Internal Medicine 02/10/24 Anneliese Godwin APRN.SENIOR TABLEAU DEVELOPER [address] [place] [address] [facility] R[facility] Internal Medicine 02/10/24 Design Draftsman Relationship Specialty Start Date End Date Robin Enamorado MD [address] [place] [address] PCP - General Internal Medicine 04/07/12 Tiffanie Anthony APRN.FORTUNE COOKIE MAKER [address] [place] [address] [facility] Internal Medicine 02/10/24 Anneliese oGdwin APRN.SENIOR TABLEAU DEVELOPER [address] [place] [address] [facility] R[facility] Internal Medicine 02/10/24 Design Draftsman Relationship Specialty Start Date End Date Robin Enamorado MD [address] [place] [address] PCP - General Internal Medicine 04/07/12 Tiffanie Anthony SPECIAL DISTRIBUTION CLERK.F[employer]UNE COOKIE MAKER [address] [place] [address] [facility] Internal Medicine 02/10/24 Anneliese Godwin APRN.SENIOR TABLEAU DEVELOPER [address] [place] [address] [facility] 02/10/24 Design Draftsman Relationship Specialty Start Date End Date Robin Enamorado MD [address] [place] [address] PCP - General Internal Medicine 04/07/12 Tiffanie Anthony, SPECIAL DISTRIBUTION CLERK.F[employer]UNE COOKIE MAKER [address] [place] [address] [facility] Internal Medicine 02/10/24 Anneliese Godwin APRN.SENIOR TABLEAU DEVELOPER [address] [place] [address] [facility] 02/10/24 Design Draftsman Relationship Specialty Start Date End Date Robin Enamorado MD [address] [place] [address] PCP - General Internal Medicine 04/07/12 Tiffanie Anthony, SPECIAL DISTRIBUTION CLERK.FORTUNE COOKIE MAKER [address] [place] [address] [facility] Internal [facility] 02/10/24 Anneliese Godwin, SPECIAL DISTRIBUTION CLERK.SENIOR TABLEAU DEVELOPER [address] [place] [address] [facility] 02/10/24 Design Draftsman Relationship Specialty Start Date End Date Robin Enamorado MD [address] [place] [address] PCP - General Internal Medicine 04/07/12 Tiffanie Anthony, SPECIAL DISTRIBUTION CLERK.F[employer]UNE COOKIE MAKER [address] [place] [address] [facility] 02/10/24 Anneliese Godwin, SPECIAL DISTRIBUTION CLERK.SENIOR TABLEAU DEVELOPER [address] [place] [address] [facility] 02/10/24 Design Draftsman Relationship Specialty Start Date End Date Robin Enamorado MD [address] [place] [address] PCP - General Internal Medicine 04/07/12 Tiffanie Anthony, SPECIAL DISTRIBUTION CLERK.FORTUNE COOKIE MAKER [address] [place] [address] [facility] Internal Medicine 02/10/24 Anneliese Godwin SPECIAL DISTRIBUTION CLERK.SENIOR TABLEAU DEVELOPER [address] [place] [address] [facility] 02/10/24 Design Draftsman Relationship Specialty Start Date End Date Robin Enamorado MD [address] [facility] [place] [address] PCP - General Internal Medicine 04/07/12 Tiffanie Anthony, SPECIAL DISTRIBUTION CLERK.F[employer]UNE COOKIE MAKER [address] [place] [address] [facility] 02/10/24 Anneliese Godwin SPECIAL DISTRIBUTION CLERK.SENIOR TABLEAU DEVELOPER [address] [place] [address] [facility] 02/10/24 Design Draftsman Relationship Specialty Start Date End Date Robin Enamorado MD [address] [place] [address] PCP - General Internal Medicine 04/07/12 Tiffanie Anthony, SPECIAL DISTRIBUTION CLERK.FORTUNE COOKIE MAKER [address] [place] [address] [facility] 02/10/24 Anneliese Godwin SPECIAL DISTRIBUTION CLERK.SENIOR TABLEAU DEVELOPER [address] [place] [address] [facility] 05/26/24 Design Draftsman Relationship Specialty Start Date End Date Robin Enamorado MD [address] [place] [address] PCP - General Internal Medicine 04/07/12 Tiffanie Anthony, SPECIAL DISTRIBUTION CLERK.FORTUNE COOKIE MAKER [address] [facility] [place] [address] [facility] Internal Medicine 02/10/24 Anneliese Godwin APRN.SENIOR TABLEAU DEVELOPER [address] [facility] [place] [address] [facility] Internal Medicine 05/26/24 Design Draftsman Relationship Specialty Start Date End Date Robin Enamorado MD [address] [facility] [place] [address] PCP - General Internal Medicine 04/07/12 Tiffanie Anthony, SPECIAL DISTRIBUTION CLERK.FORTUNE COOKIE MAKER [address] [facility] [place] [address] [facility] Raker Internal Medicine 02/10/24 Anneliese Godwin APRN.SENIOR TABLEAU DEVELOPER [address] [place] [address] [facility] Raker Internal Medicine 05/26/24 Design Draftsman Relationship Specialty Start Date End Date Robin Enamorado MD [address] [facility] [place] [address] PCP - General Internal Medicine 04/07/12 Tiffanie Anthony, SPECIAL DISTRIBUTION CLERK.FORTUNE COOKIE MAKER [address] [place] [address] [facility] Medicine 02/10/24 Anneliese Godwin APRN.SENIOR TABLEAU DEVELOPER [address] [place] [address] [facility] R[facility] 05/26/24 Design Draftsman Relationship Specialty Start Date End Date Robin Enamorado MD [address] [place] [address] PCP - General Internal Medicine 04/07/12 Tiffanie Anthony, SPECIAL DISTRIBUTION CLERK.FORTUNE COOKIE MAKER [address] [place] [address] Mac[facility] Raker Internal Medicine 02/10/24 Anneliese Godwin SPECIAL DISTRIBUTION CLERK.SENIOR TABLEAU DEVELOPER [address] [place] [address] [facility] R[facility] Internal Medicine 05/26/24 Design Draftsman Relationship Specialty Start Date End Date Robin Enamorado MD [address] [place] [address] PCP - General Internal Medicine 04/07/12 Tiffanie Anthony, SPECIAL DISTRIBUTION CLERK.FORTUNE COOKIE MAKER [address] [place] [address] [facility] Raker Internal Medicine 02/10/24 Anneliese Godwin APRN.SENIOR TABLEAU DEVELOPER [address] [place] [address] Mac[facility] Raker Internal Medicine 05/26/24 Design Draftsman Relationship Specialty Start Date End Date Robin Enamorado MD [address] [place] [address] PCP - General Internal Medicine 04/07/12 Tiffanie Anthony, SPECIAL DISTRIBUTION CLERK.FORTUNE COOKIE MAKER [address] [place] [address] [facility] Raker Internal Medicine 02/10/24 Anneliese Godwin SPECIAL DISTRIBUTION CLERK.SENIOR TABLEAU DEVELOPER [address] [facility] [place] [address] Macadam Raker Internal Medicine 05/26/24 Design Draftsman Relationship Specialty Start Date End Date Robin Enamorado MD [address] [place] [address] PCP - General Internal Medicine 04/07/12 Anneliese Godwin, SPECIAL DISTRIBUTION CLERK.SENIOR TABLEAU DEVELOPER [address] [place] [address] Macadam Raker Internal Medicine 05/26/24 Tiffanie Anthony, SPECIAL DISTRIBUTION CLERK.FORTUNE COOKIE MAKER [address] [place] [address] [facility] 07/22/24 Design Draftsman Relationship Specialty Start Date End Date Robin Enamorado MD [address] [place] [address] PCP - General Internal Medicine 04/07/12 Anneliese Godwin SPECIAL DISTRIBUTION CLERK.SENIOR TABLEAU DEVELOPER [address] [place] [address] Macadam Raker Internal Medicine 05/26/24 Tiffanie Anthony, SPECIAL DISTRIBUTION CLERK.FORTUNE COOKIE MAKER [address] [place] [address] [facility] 07/22/24 Design Draftsman Relationship Specialty Start Date End Date Robin Enamorado MD [address] [place] [address] PCP - General Internal Medicine 04/07/12 Anneliese Godwin SPECIAL DISTRIBUTION CLERK.SENIOR TABLEAU DEVELOPER [address] [place] [address] Macadam Raker Internal Medicine 05/26/24 Tiffanie Anthony, SPECIAL DISTRIBUTION CLERK.FORTUNE COOKIE MAKER [address] [facility] [place] [address] Macadam Raker Internal Medicine 07/22/24 Design Draftsman Relationship Specialty Start Date End Date Robin Enamorado MD [address] [facility] [place] [address] PCP - General Internal Medicine 04/07/12 Anneliese Godwin, SPECIAL DISTRIBUTION CLERK.SENIOR TABLEAU DEVELOPER [address] [facility] [place] [address] Macadam Raker Internal Medicine 05/26/24 Tiffanie Anthony, SPECIAL DISTRIBUTION CLERK.FORTUNE COOKIE MAKER [address] [place] [address] [facility] Raker Internal Medicine 07/22/24 Design Draftsman Relationship Specialty Start Date End Date Robin Enamorado MD [address] [facility] [place] [address] PCP - General Internal Medicine 04/07/12 Anneliese Godwin, SPECIAL DISTRIBUTION CLERK.SENIOR TABLEAU DEVELOPER [address] [facility] [place] [address] Macadam Raker Internal Medicine 05/26/24 Tiffanie Anthony, SPECIAL DISTRIBUTION CLERK.FORTUNE COOKIE MAKER [address] [place] [address] Mac[facility] Raker Internal Medicine 07/22/24 Design Draftsman Relationship Specialty Start Date End Date Robin Enamorado MD [address] [place] [address] PCP - General Internal Medicine 04/07/12 Anneliese Godwin SPECIAL DISTRIBUTION CLERK.SENIOR TABLEAU DEVELOPER [address] [place] [address] Macadam Raker Internal Medicine 05/26/24 Tiffanie Anthony, SPECIAL DISTRIBUTION CLERK.FORTUNE COOKIE MAKER [address] [place] [address] Macadam Raker Internal Medicine 07/22/24 Design Draftsman Relationship Specialty Start Date End Date Robin Enamorado MD [address] [place] [address] PCP - General Internal Medicine 04/07/12 Anneliese Godwin SPECIAL DISTRIBUTION CLERK.SENIOR TABLEAU DEVELOPER [address] [place] [address] Macadam Raker Internal Medicine 05/26/24 Tiffanie Anthony, SPECIAL DISTRIBUTION CLERK.FORTUNE COOKIE MAKER [address] [place] [address] Macadam Raker Internal Medicine 07/22/24 Design Draftsman Relationship Specialty Start Date End Date Robin Enamorado MD [address] [place] [address] PCP - General Internal Medicine 04/07/12 Anneliese Godwin SPECIAL DISTRIBUTION CLERK.SENIOR TABLEAU DEVELOPER [address] [place] [address] Mac[facility] Raker Internal Medicine 05/26/24 Tiffanie Anthony, SPECIAL DISTRIBUTION CLERK.FORTUNE COOKIE MAKER [address] [place] [address] Macadam Raker Internal Medicine 07/22/24 Design Draftsman Relationship Specialty Start Date End Date Robin Enamorado MD [address] [place] [address] PCP - General Internal Medicine 04/07/12 Anneliese Godwin APRN.SENIOR TABLEAU DEVELOPER [address] [place] [address] Macadam Raker Internal Medicine 05/26/24 Tiffanie Anthony, SPECIAL DISTRIBUTION CLERK.FORTUNE COOKIE MAKER [address] [place] [address] Macadam Raker Internal Medicine 07/22/24 Design Draftsman Relationship Specialty Start Date End Date Robin Enamorado MD [address] [place] [address] PCP - General Internal Medicine 04/07/12 Anneliese Godwin APRN.SENIOR TABLEAU DEVELOPER [address] [place] [address] Macadam Raker Internal Medicine 05/26/24 Tiffanie Anthony, SPECIAL DISTRIBUTION CLERK.FORTUNE COOKIE MAKER [address] [place] [address] Macadam Raker Internal Medicine 07/22/24 Design Draftsman Relationship Specialty Start Date End Date Robin Enamorado MD [address] [place] [address] PCP - General Internal Medicine 04/07/12 Anneliese Godwin SPECIAL DISTRIBUTION CLERK.SENIOR TABLEAU DEVELOPER [address] [place] [address] Macadam Raker Internal Medicine 05/26/24 Tiffanie Anthony, SPECIAL DISTRIBUTION CLERK.FORTUNE COOKIE MAKER [address] [place] [address] Macadam Raker Internal Medicine 07/22/24 Team Status: Active Member [...] UP Procedures EST PATIENT Robin Enamorado MD [address] [place] [address] Chely Verma PA-C [address] [place] [address] Referral ID Status Reason Start Date Expiration Date Visits Requested Visits Authorized [id number] Ref Not Required Financial Clearance Not Required [...] UP Procedures EST PATIENT Chely Verma PA-C [address] [place] [address] Chely Verma PA-C [address] [place] [address] Referral ID Status Reason Start Date Expiration Date V isits Requested Visits Authorized [id number] Pending Review 11/22/2022 11/22/2022 1 1 Reason [...] MINS NEW RS FCE Chely Verma PA-C [address] [place] [address] Phone: tel: fax: [facility] [address] [place] [address] Phone: tel: fax: Referral ID Status Reason Start Date Expiration Date V isits Requested Visits Authorized [id number] Authorized 03/04/2024 03/03/2025 99 99 Reason Comments [...] MDM 60 MINUTES Ainsley Alfonso, [facility] [address] [place] [address] Phone: tel: fax: Referral ID Status Reason Start Date Expiration Date V isits Requested Visits Authorized [id number] Closed PCP Requested Referral 09/02/2024 09/02/2025 1 [...] BE BASED ON THE PRIMARY CLINICAL RECORDS. [employer] [facility]. provides no warranty or guarantee of the accuracy or completeness of information in this document.
--- NOTE | 2024-10-07 21:28 | EX.ED.DYSGE1 ---
HPI History of Present Illness Chief Complaint: Fever Detail of Chief Complaint: Fever status post blood patch today. Informant: patient and spouse/S.O. 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 Patient had a blood patch for presumed epidural tear status post epidural injection of L4-5 by pain management 2 weeks ago. He informed me that the headache started October 02 which would be 6 days ago. The headache was positional. There is no other symptoms. Patient did have a blood patch. His headache is resolved. He denies photophobia or sonophobia. He denies neck pain or neck stiffness. He does endorse mild chronic nasal drainage. Denies sore throat or rhinorrhea. He denies productive cough. His cough is nonproductive and is been minimal for the last 2 to 3 days. He has no known history of lung disease. He denies abdominal pain, nausea, vomit or diarrhea. He denies dysuria, frequency, urgency or hematuria. Patient is a C6 quadriplegic. Patient has chronic weakness. He states he does feel things. 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 Brown-Sequard syndrome Spinal cord injury Home Medications ?Medication ?Instructions ?Recorded ?Last Taken ?Type baclofen 20 mg tablet 20 mg PO 4X/DAY 10/02/24 Unknown History gabapentin 800 mg tablet 800 mg PO TID 10/02/24 10/07/24 08:00 History levothyroxine 75 mcg tablet See Rx Instructions PO .COMPLEX 10/02/24 Unknown History tizanidine 4 mg tablet 12 mg PO QHS 10/02/24 Unknown History tramadol 50 mg tablet 50 mg PO 4X/DAY PRN pain 10/02/24 Unknown History hbnxkfkgkp-bbfnjtfvravji-pkkhravg 1 tab PO Q6H PRN pain #6 tabs 10/06/24 10/07/24 08:00 Rx 50 mg-325 mg-40 mg tablet Allergy/AdvReac Type Severity Reaction Status Date / Time No Known Allergies Allergy Verified 10/07/24 20:35 Family History Father Diabetes Grandmother Heart disease Brother Cancer thyroid cancer - twin brother Grandfather Cancer prostate cancer Other Hypertension Surgical History Hx of superior vena cava filter placement History of knee surgery History of pelvic surgery History of cervical spinal surgery Social History household members: spouse and children Smoking Status: Never smoker alcohol intake: current alcohol intake frequency: holidays/special occasions only ROS ROS ED Constitutional Constitutional ED: Reports fever(s); Denies chills, subjective or sweats Eyes Eyes: Denies blurry vision or change in vision ENT ENT ED: Denies ear pain, rhinorrhea or sore throat Cardiovascular Cardiovascular: Denies chest pain, orthopnea, palpitations, paroxysmal nocturnal dyspnea or racing heartbeat Respiratory/Chest Respiratory/Chest: Reports cough; Denies dyspnea, dyspnea on exertion, orthopnea, paroxysmal nocturnal dyspnea or sputum Gastrointestinal Gastrointestinal: Denies abdominal pain, nausea or vomiting Genitourinary Genitourinary ED: Denies dysuria, hematuria or urinary frequency Musculoskeletal Musculoskeletal: Denies arthralgias or myalgias Integumentary Denies rash Neurologic Neurologic: Denies headache(s) or paresthesias Psychiatric Psychiatric: Denies anxiety or depression Endocrine Endocrinology: Denies cold intolerance or heat intolerance Hematologic/Lymphatic Hematologic/Lymphatic: Reports systems reviewed and no addt'l complaints, except as documented EXAM Physical Exam Const Vital Signs: 10/07/24 20:35 10/07/24 20:38 10/07/24 21:00 Temperature 100.9 F H 100.9 F H 100.6 F H Temperature Source Oral Oral Oral Pulse Rate 96 96 90 Respiratory Rate 18 18 16 Respiratory Effort Respiratory Pattern Blood Pressure 106/74 106/74 120/84 H Blood Pressure Mean 84 84 96 Pulse Ox 97 97 98 Oxygen Delivery Method Room Air Room Air Room Air 10/07/24 21:02 10/07/24 22:00 Temperature 100.5 F H Temperature Source Oral Pulse Rate 84 Respiratory Rate 18 Respiratory Effort Normal Non-Labored Respiratory Pattern Normal Blood Pressure 118/78 Blood Pressure Mean 91 Pulse Ox 98 Oxygen Delivery Method Room Air Positive well nourished and well developed General Appearance ED: well developed and NAD; Negative for cyanotic, diaphoretic or pallor HEENT Reports moist mucous membranes HEENT Narrative: Is atraumatic normocephalic. Ears normal. Nares patent. Posterior pharynx is unremarkable. Eyes PERRL and EOMs intact bilaterally General Eye ED: Negative for pale conjunctiva or scleral icterus Neck no lymphadenopathy, supple and no JVD Chest Wall inspection of chest normal and palpation of chest normal Resp normal respiratory effort and clear to auscultation bilaterally Cardio regular rate, regular rhythm, S1 normal heart sound, S2 normal heart sound and no murmurs GI normal to inspection, nondistended, normoactive bowel sounds, non-tender, non-distended and no masses; Negative for hepatosplenomegaly Back/Spine no CVA tenderness Extremity Negative for normal to inspection Extremity Narrative: Atrophy due to spinal cord injury Neuro oriented x3, CN's II-XII intact bilaterally and No no sensory deficits noted Sensorium / Orientation: alert Motor Exam: Negative for strength 5/5 throughout Psych mental status grossly normal Skin no rashes or lesions noted, no wounds and skin turgor normal General Skin Exam: elasticity normal; Negative for jaundice or pallor MDM MDM MDM Narrative Medical decision making narrative: Patient is a spinal cord injury, Brown-S?quard with normal motor function right and AB normal sensation left. Since patient has a cough fever will obtain chest x-ray to assess for pneumonia. Blood work was obtained to assess white count differential, renal function, since he has no urinary symptoms UA was not obtained. Since he has no midline tenderness do not believe this is due to the blood patch. Will obtain blood cultures in the case this is due to a recent bacterial infection that started 2 to 3 days ago and having the blood patch today with potential infected fluid. Lab Data Attestation: I reviewed the patient's lab results. Lab results narrative: CBC is normal. Comprehensive metabolic panel reveals slight elevation of glucose at 135. Total bili is slight elevated 1.69. AST and ALT and alkaline phosphatase are all normal. CO2 anion gap is normal. Labs: Laboratory Results - last 24 hr 10/07/24 21:19 WBC 7.2 RBC 4.63 Hgb 14.7 Hct 41.5 MCV 89.6 MCH 31.7 MCHC 35.4 RDW Std Deviation 40.4 RDW Coeff of Marc 12.4 Plt Count 230 MPV 8.5 Immature Gran % (Auto) 0.600 Neut % (Auto) 62.8 Lymph % (Auto) 26.0 [place] % (Auto) 9.0 Eos % (Auto) 0.8 Baso % (Auto) 0.8 Absolute Neuts (auto) 4.5 Absolute Lymphs (auto) 1.88 Nucleated RBC % 0 Sodium 141 Potassium 3.7 Chloride 105 Carbon Dioxide 22.7 Anion Gap 13 BUN 11 Creatinine 0.95 Estim Creat Clear Calc 111.76 Est GFR (MDRD) Non-Af 99 BUN/Creatinine Ratio 11.3 Glucose 135 H Lactic Acid 1.9 Calcium 9.1 Total Bilirubin 1.69 H AST 19 ALT 16 Alkaline Phosphatase 53 Total Protein 6.7 Albumin 4.1 Globulin 2.6 Albumin/Globulin Ratio 1.6 ABG Data Attestation: I personally reviewed and interpreted this ABG as follows: Interpretation: ABG was obtained at 6 L. pH of 7.31, pCO2 40.8, pO2 64.5, base excess -5.1. Bicarb 21.0 with a 90% saturation. Radiography Chest X-Ray - ED: 2 View and Read by ED Physician (Independent reviewed interpreted by me. Cardiac silhouette size normal. Lung parenchyma normal. There is some mild chronic changes of the vertebrae.) Diagnostic Testing: Clinical Impression(s) from Imaging Studies Chest X-Ray 10/07/24 21:32 IMPRESSION: No acute chest findings. Reading Location: [place] [address] Treatment and Re-Evaluation :: Patient was informed of his laboratory results and chest x-ray results. Since he looks well presume he is got a viral infection. He was informed that if his cultures come back positive we will contact him and either have him come back or treat with antibiotics called into his pharmacy. Discharge Plan Triage Chief Complaint: Fever ED Provider: Vito Vieyra Dx/Rx/DC Orders Clinical Impression: Fever in adult, Brown-Sequard syndrome, Cough Instructions: ED FUO Adult, ED Fever Control (Adult) Prescriptions: No Action levothyroxine 75 mcg tablet See Rx Instructions PO .COMPLEX Rx Instructions: orally; 1 tab daily, except sundays take 2 tabs baclofen 20 mg tablet 20 mg PO 4X/DAY gabapentin 800 mg tablet 800 mg PO TID tizanidine 4 mg tablet 12 mg PO QHS tramadol 50 mg tablet 50 mg PO 4X/DAY PRN (Reason: pain) [id number]-cfngwiwammhbr-belv 50-325-40 mg tablet 1 tab PO Q6H PRN (Reason: pain) Qty: 6 0RF Primary Care Provider: Radha Diaz Referrals: Radha Diaz MD [Primary Care Provider] - 3-5 Days if not improving Print Language: Italian Disposition Disposition: Home, Self Care
--- NOTE | 2024-10-07 21:32 | RAD_ITS ---
PROCEDURE: CHEST PA AND LATERAL 10/07/2024 REASON FOR EXAM: COUGH, FEVER TECHNIQUE: CHEST PA AND LATERAL COMPARISON: No FINDINGS: Normal heart size. Well inflated lungs. No consolidation, effusion, or pneumothorax. Mild scoliosis. RAD/Chest PA and Lateral IMPRESSION: No acute chest findings. Reading Location: [facility]
[2024-10-07 21:53] LABS: Hematocrit 41.5 % (40-54); Hemoglobin 14.7 g/dL (13.0-16.5); Immature Granulocytes Count 0.040 X10^3/uL (0.0-0.0); Mean Corp Hgb Conc 35.4 g/dL (32-36); Mean Corpuscular Volume 89.6 fL (80-94); Mean Platelet Vol. 8.5 fl (6.2-12.0); NRBC Flagged by Analyzer 0 % (0-5); Platelet Count 230 K/mm3 (150-450); RBC Distribution Width CV 12.4 % (11.6-14.6); RBC Distribution Width SD 40.4 fl (35.1-43.9); Red Blood Count 4.63 M/mm3 (4.6-6.2); White Blood Count 7.2 K/mm3 (4.4-11.0)
[2024-10-07 22:00] VITALS: BP 118/78; PULSE 84; RESP 18; TEMP 38.1; O2SAT 98
[2024-10-07 22:22] LABS: AST(SGOT) 19 U/L (<=37); Alanine Aminotransfer ALT/SGPT 16 U/L (<=46); Albumin, Serum 4.1 g/dL (3.5-5.0); Alkaline Phosphatase 53 U/L (40-129); Anion Gap 13 (5-15); BUN 11 mg/dL (4-19); BUN/Creat Ratio 11.3 RATIO (10-20); Calcium,Total 9.1 mg/dL (7.6-11.0); Carbon Dioxide 22.7 mmol/L (21.0-32.0); Chloride 105 mmol/L (98-108); Estimated Creatinine Clearance 111.76 ml/min (50-250); Globulin 2.6 g/dL (2.2-4.2); Glucose 135 mg/dL (70-99); Potassium 3.7 mmol/L (3.3-5.1)
[2024-10-07 22:44] VITALS: BP 126/80; PULSE 77; RESP 18; TEMP 37.6; O2SAT 100
== END 2024-10-07 22:49 | disposition home or self-care (01) ==
PROVIDERS: Emergency Provider Emergency Medicine; PCP Internal Medicine; Visit Provider Emergency Medicine
DX: R50.9 Fever, unspecified (principal); G82.50 Quadriplegia, unspecified; G83.81 Brown-Sequard syndrome; R51.0 Headache with orthostatic component, not elsewhere classified; R05.9 Cough, unspecified
CPT/HCPCS: 71046; 80053; 83605; 85025; 87040; 99284; A4216